=== PATIENT | male | born 1950 | race Caucasian/White ===

== ENCOUNTER 2017-10-05 12:46 | Inpatient (IN) | payer OTHER ==
[~2017-10-05 12:46] MED LIST: PIPERACILLIN/TAZOB 2.25 GM 2.25 GM in DEXTROSE 5%-WATER - 50 ML IVPB SCH
[2017-10-05] MEDS ORDERED: SODIUM CHLORIDE 1,000 ML IV STA ×2 (13:29→16:02)
--- NOTE | 2017-10-05 13:54 | PDOC ---
History of Present Illness - General History Source: Patient, Friend Exam Limitations: No Limitations <CelineXochitl - Last Filed: 10/05/17 14:15> <Yesenia Choe - Last Filed: 10/05/17 18:38> - General History Source: Patient, Friend (Lizy) Exam Limitations: No Limitations - History of Present Illness Initial Comments: 10/05/17 13:48 Patient is a 66 year old male with PMH of DM, HTN, chronic back pain presenting to ED because "I was forced to". He was brought in by his friend, Lizy, because she said he didn't look right and was refusing to be seen. Patient said he has been feeling week and vomiting for about 3 weeks. He states that he has not had an appetite either. He denies fever, chills, abdominal pain, LOC, cough , dysuria, bloody bowel movements. Patient does not have sensation in his feet. PCP: Dr. Paz/ Dr. Parker Civil Engineering Project Designer: Dr. Martinez Meds: Tamsulosin 0.4, Valsartan 160mg, Amlodipine 5mg, glipizide er 5mg, prilosec 40mg, gabapentin 100mg, oxycontin 40mg Allergies: nka Social: denies alcohol, tobacco, illicit drug use <Sanaz Guadalupe - Last Filed: 10/05/17 19:49> - General Stated Complaint: BLOOD SUGAR PROBLEM, WEAKNESS Time Seen by Provider: 10/05/17 13:05 Past History <Xochitl Berger - Last Filed: 10/05/17 14:15> <Yesenia Choe - Last Filed: 10/05/17 18:38> - Past Medical History Anemia: Yes COPD: No Diabetes: Yes - Suicide/Smoking/Psychosocial Hx Smoking Status: Yes Smoking History: Former smoker Have you smoked in the past 12 months: No Number of Cigarettes Smoked Daily: 0 Information on smoking cessation initiated: No 'Breaking Loose' booklet given: 11/02/12 Hx Alcohol Use: No Drug/Substance Use Hx: No Substance Use Type: None <Sanaz Guadalupe - Last Filed: 10/05/17 19:49> - Past Medical History Allergies/Adverse Reactions: Allergies Allergy/AdvReac Type Severity Reaction Status Date / Time No Known Allergies Allergy Verified 10/05/17 13:46 Home Medications: Ambulatory Orders Amlodipine Besylate 5 mg PO DAILY 10/05/17 Amlodipine Besylate 5 mg PO DAILY 10/05/17 Gabapentin 300 mg PO BID 10/05/17 Glipizide [Glipizide ER] 5 mg PO DAILY 10/05/17 Omeprazole Magnesium [Prilosec] 40 mg PO DAILY 10/05/17 Tamsulosin HCl 0.4 mg PO HS 10/05/17 Valsartan 160 mg PO DAILY 10/05/17 oxyCODONE SR [Oxycontin] 20 mg PO BID 10/05/17 Review of Systems - Review of Systems Constitutional: Yes: Loss of Appetite, Weakness. No: Chills, Fever, Night Sweats HEENTM: No: Eye Pain, Recent change in vision, Throat Pain, Throat Swelling, Difficulty Swallowing Respiratory: No: Cough, Shortness of Breath, Wheezing Cardiac (ROS): Yes: Lightheadedness. No: Chest Pain, Palpitations ABD/GI: Yes: Nausea, Poor Appetite, Vomiting. No: Constipated, Diarrhea, Difficulty Swallowing, Indigestion, Abdominal cramping : No: Burning, Dysuria, Frequency, Hematuria, Testicular Mass, Testicular Swelling, Testicular Pain Musculoskeletal: Yes: Back Pain Integumentary: No: Change in Color, Flushing, Lesions, Rash Neurological: Yes: Weakness, Dizziness. No: Headache, Numbness, Paresthesia, Seizure, Tingling <Sanaz Guadalupe - Last Filed: 10/05/17 19:49> *Physical Exam - Vital Signs Last Vital Signs Temp Pulse Resp BP Pulse Ox 100.1 F H 124 H 16 122/57 100 10/05/17 13:23 10/05/17 13:23 10/05/17 13:23 10/05/17 13:23 10/05/17 13:23 <Xochitl Berger - Last Filed: 10/05/17 14:15> - Vital Signs Last Vital Signs Temp Pulse Resp BP Pulse Ox 100.1 F H 125 H 20 124/69 100 10/05/17 13:29 10/05/17 14:49 10/05/17 14:49 10/05/17 14:49 10/05/17 16:31 <Yesenia Choe - Last Filed: 10/05/17 18:38> - Vital Signs Last Vital Signs Temp Pulse Resp BP Pulse Ox 99.8 F H 128 H 21 85/53 97 10/05/17 12:46 10/05/17 12:46 10/05/17 12:46 10/05/17 12:46 10/05/17 12:46 - Physical Exam General Appearance: Yes: Thin, Other (lying in bed, shivering) HEENT: positive: EOMI, ANNIE. negative: Pharyngeal Erythema, Tonsillar Exudate, Tonsillar Erythema (dry mucous membranes) Neck: positive: Trachea midline, Supple. negative: Carotid bruit Respiratory/Chest: positive: Decreased Breath Sounds (of R and L lower lung bases). negative: Rales, Stridor, Wheezing Cardiovascular: positive: Regular Rhythm, S1, S2, Tachycardia. negative: Edema , JVD, Murmur Gastrointestinal/Abdominal: positive: Normal Bowel Sounds, Soft. negative: Tender, Distended, Guarding, Rebound, Tenderness Male Genitalia: positive: normal genitalia. negative: testicular tenderness, testicular mass Musculoskeletal: negative: CVA Tenderness, Decreased Range of Motion Extremity: positive: Delayed Capillary Refill. negative: Normal Range of Motion , Tender, Pedal Edema, Swelling, Calf Tenderness Integumentary: positive: Other (Plantar surfaces of both feet are erythematous with ulceration. L plantar surface has a penetrating wound about 1-2cm deep) Neurologic: positive: supervisor area II-XII NML intact, Fully Oriented, Alert, Normal Response, Other (No sensation in feet bilaterally) <Sanaz Guadalupe - Last Filed: 10/05/17 19:49> Procedures - Bedside Ultrasound Other: Kidney Remarks: 10/05/17 17:06 Bedside ultrasound of kidney performed with Dr. Berger: R and L kidney appear grossly normal, no hydronephrosis noted. Incidental cholelithiasis found. patient is asymptomatic <Sanaz Guadalupe - Last Filed: 10/05/17 19:49> ED Treatment Course - LABORATORY CBC & Chemistry Diagram: 10/05/17 13:57 10/05/17 13:57 - ADDITIONAL ORDERS Additional order review: Laboratory Results 10/05/17 13:57 VBG pH 7.39 POC VBG pCO2 42.6 POC VBG pO2 22.1 L Mixed VBG HCO3 25.2 H - RADIOLOGY Radiology Studies Ordered: Category Date Time Status CHEST X-RAY PORTABLE* [RAD] Stat Radiology 10/05/17 13:25 Ordered <Xochitl Berger - Last Filed: 10/05/17 14:15> - LABORATORY CBC & Chemistry Diagram: 10/05/17 13:57 10/05/17 13:57 - ADDITIONAL ORDERS Additional order review: Laboratory Results 10/05/17 10/05/17 10/05/17 16:45 14:09 13:57 PT with INR INR PTT (Actin FS) VBG pH POC VBG pCO2 POC VBG pO2 Mixed VBG HCO3 Sodium Potassium Chloride Carbon Dioxide Anion Gap BUN Creatinine Creat Clearance w eGFR Random Glucose Lactic Acid 2.0 Calcium Total Bilirubin AST ALT Alkaline Phosphatase Creatine Kinase Creatine Kinase Index CK-MB (CK-2) Troponin I Total Protein Albumin Urine Color Yellow Urine Appearance Slcloudy Urine pH 5.0 Ur Specific [place] 1.014 Urine Protein 1+ H Urine Glucose (UA) 1+ H Urine Ketones Negative Urine Blood 1+ H Urine Nitrite Negative Urine Bilirubin Negative Urine Urobilinogen Negative Ur Leukocyte Esterase Negative Urine WBC (Auto) 2 Urine RBC (Auto) 2 Ur Epithelial Cells Rare Urine Mucus Rare Blood Type A POSITIVE Antibody Screen Negative 10/05/17 10/05/17 10/05/17 13:57 13:57 13:57 PT with INR 14.20 H INR 1.26 H PTT (Actin FS) 29.0 VBG pH 7.39 POC VBG pCO2 42.6 POC VBG pO2 22.1 L Mixed VBG HCO3 25.2 H Sodium 135 L Potassium 5.3 H Chloride 98 Carbon Dioxide 26 Anion Gap 11 BUN 66 H Creatinine 5.8 H Creat Clearance w eGFR 9.83 Random Glucose 181 H D Lactic Acid Calcium 8.7 Total Bilirubin 0.3 AST 24 D ALT 17 D Alkaline Phosphatase 82 Creatine Kinase 250 Creatine Kinase Index 0.9 CK-MB (CK-2) 2.44 Troponin I < 0.02 Total Protein 7.1 Albumin 2.2 L Urine Color Urine Appearance Urine pH Ur Specific [place] Urine Protein Urine Glucose (UA) Urine Ketones Urine Blood Urine Nitrite Urine Bilirubin Urine Urobilinogen Ur Leukocyte Esterase Urine WBC (Auto) Urine RBC (Auto) Ur Epithelial Cells Urine Mucus Blood Type Antibody Screen 10/05/17 13:57 RBC 3.48 L MCV 81.6 MCHC 33.0 RDW 14.3 MPV 7.6 Neutrophils % 84.7 H Lymphocytes % 7.9 L D Monocytes % 6.2 Eosinophils % 0.5 Basophils % 0.7 - Medications Given in the ED: ED Medications Discontinued Medications Generic Name Dose Route Start Last Admin Trade Name King PRN Reason Stop Dose Admin Acetaminophen 1,000 mg 10/05/17 14:25 10/05/17 14:40 Ofirmev Injection - IVPB 10/05/17 14:26 1,000 mg ONCE ONE Administration Sodium Chloride 1,000 mls @ 1,000 mls/hr 10/05/17 13:29 10/05/17 13:30 Normal Saline - IV 10/05/17 14:28 1,000 mls/hr ASDIR STA Administration Vancomycin HCl 1,000 mg/ 250 mls @ 166.667 mls/hr 10/05/17 14:23 10/05/17 15: 36 Dextrose IVPB 10/05/17 15:52 166.667 mls/hr ONCE ONE Administration Protocol Piperacillin Sod/Tazobactam 50 mls @ 100 mls/hr 10/05/17 14:23 10/05/17 14:47 Sod 3.375 gm/ Dextrose IVPB 10/05/17 14:52 100 mls/hr ONCE ONE Administration Protocol Famotidine/Sodium Chloride 20 mg in 50 mls @ 100 mls/hr 10/05/17 14:41 15:36 Pepcid 20 Mg Premixed Ivpb - IVPB 10/05/17 15:10 100 mls/hr ONCE ONE Administration Sodium Chloride 1,000 mls @ 1,000 mls/hr 10/05/17 16:02 10/05/17 16:55 Normal Saline - IV 10/05/17 17:01 1,000 mls/hr ASDIR STA Administration - Consult/PCP Time Called: 17:28 (Paged Infectious Disease) Consult Reason/Comments: Paged Dr. Peguero - Podiatry. Repaged Podiatry. - Additional Consults Time Called: 17:09 (Paged Nephrology) Consult/PCP: Marvin Martinez Time Called: 17:23 (Paged Podiatry) Consult/PCP: Dr. Reynoso Reason/Comments: Placed a callback to Dr. 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 <Yesenia Choe - Last Filed: 10/05/17 18:38> - LABORATORY CBC & Chemistry Diagram: 10/05/17 13:57 10/05/17 13:57 - RADIOLOGY Radiology Studies Ordered: Category Date Time Status FOOT-LEFT [RAD] Stat Radiology 10/05/17 13:38 Ordered FOOT-RIGHT [RAD] Stat Radiology 10/05/17 13:38 Ordered <Sanaz Guadalupe - Last Filed: 10/05/17 19:49> Medical Decision Making - Medical Decision Making 10/05/17 13:58 Patient is a 66yo male with PMH of DM, HTN, chronic back pain presenting to ED because his friend was concerned. Vitals in triage showed that patient was hypotensive 85/53 and tachycardic 128, oral temperature was 99.7. DDX: sepsis, septic shock, DKA, hypoglycemia, anemia -source of possible infection includes open wound on foot, osteomyelitis, uti, pna. UA, UC, blood cultures ordered. Swab of pt's Left foot wound on the heel. After bolus, patient's bp went up to 127/67 HR 120. Rectal temperature 100.7 Patient started on Vanc/Zosyn and given IV Tylenol Labs: WBC 13.1, Hgb 9.7. BUN 66, Cr 5.8, PT/INR 14.2, 1.26. Lactate was 2, recheck was 1. UA negative for infection. Bedside ultrasound of kidney performed: no hydronephrosis noted. Patient had davenport placed because of kidney function. Patient was less confused after bolus, abx. CXR: no acute process. Xray of R foot: no acute injury or osteo Xray of Left foot: no acute osseous injury, soft tissue gas noted suggestive of deep fascitis. Patient's hr decreased to 95 and was normotensive. Possible source of infection found. Patient was admitted under Dr. Trujillo. Podiatry not available for consult. Consults: Dr. Kat for ID Dr. Bray for nephrology Awaiting callback from vascular surgery for consult. Patient was signed out to Dr. Mendoza <Sanaz Guadalupe - Last Filed: 10/05/17 19:49> *DC/Admit/Observation/Transfer <Xochitl Berger - Last Filed: 10/05/17 14:15> <Yesenia Choe - Last Filed: 10/05/17 18:38> - Discharge Dispostion Decision to Admit order: Yes <Sanaz Guadalupe - Last Filed: 10/05/17 19:49> Diagnosis at time of Disposition: Sepsis
[2017-10-05 14:08] LABS: BASO % 0.7 % (0-2.0); EOS % 0.5 % (0-4.5); HEMATOCRIT 28.4 % (35.4-49); HEMOGLOBIN 9.4 GM/dL (11.7-16.9); LYMPH % 7.9 % (8-40); MCH 26.9 pg (25.7-33.7); MEAN CELL VOLUME 81.6 fl (80-96); MEAN PLT VOLUME 7.6 fl (7.5-11.1); MONO % 6.2 % (3.8-10.2); NEUT % 84.7 % (42.8-82.8); PLATELET COUNT 491 K/MM3 (134-434); RBC 3.48 M/mm3 (4.00-5.60); RDW 14.3 % (11.9-15.9); WHITE BLOOD COUNT 13.1 K/mm3 (4.0-10.0)
[2017-10-05 14:14] LABS: VENOUS PC02 42.6 mmHg (38-52); VENOUS PH 7.39 (7.32-7.42); VENOUS PO2 22.1 mmHg (28-48)
--- NOTE | 2017-10-05 14:21 | PDOC ---
Attending Attestation - Medical Decision Making 10/05/17 14:[address] Paz, answering service referred to [facility]. Case discussed with Dr. Rosales at 16:00. <Altaf Clement - Last Filed: 10/05/17 16:01> - Resident Resident Name: Sanaz Guadalupe - ED Attending Attestation I have performed the following: I have examined & evaluated the patient, The case was reviewed & discussed with the resident, I agree w/resident's findings & plan, Exceptions are as noted - HPI HPI: 10/05/17 14:15 66-year-old male history of diabetes and hypertension here today with a friend who forced him to come for concerns for persistent nausea vomiting decreased by mouth intake and lethargy. Per the friend who provides most the history of patient hasn't been vomiting intermittently over the last 3 weeks has not eaten or drank anything no fevers or chills per the patient complains of abdominal pain but states he has no appetite. Patient has been admitted in the past for something very similar at that time was found to be severely anemic. Denies any urinary difficulty no fevers no chills denies cough chest pain or other complaints - Physicial Exam PE: 10/05/17 14:19 Patient is awake alert noted to have very dry mucous membranes lung is Tyesha a faint crackles at the right base and decreased breath sounds otherwise normal normal effort. Heart is with regular tachycardia no murmurs rubs or gallops abdomen is soft and nontender there is no CVA tenderness. Extremities are warm and well perfused without rash. The heels left heel is noted for a large decubitus ulcer with tracking no surrounding erythema mild malodor patient has 2 + DP and PT pulses neurologically he is awake alert and oriented has a resting tremor good strength throughout speech is clear - Medical Decision Making 10/05/17 14:20 66-year-old male diabetes hypertension here with lethargy noted to be hypotensive and tachycardic. Differential diagnosis includes sepsis sources include possible pneumonia, UTI, or infected heel ulcer and osteomyelitis, renal failure, anemia, severe dehydration, x-rays of the chest, heels cBC lytes, ua type and screen Will give IV hydration rectal temp positive 100.3 .we'll give IV Tylenol will give broad-spectrum patient will require admission 10/05/17 14:21 10/05/17 16:02 d/w dr. Rosales, nephrology who will see pt. recommend repeat bmp in 8 hrs. 10/05/17 17:04 pt now states pt sees dr. Hinds for nephrology, will pg . focused ED ultrasound renal performed indication renal failure no hydronephrosis bilaterally. bladder nondistended. impression: normal renal ultrasound incidental glablladder visualization, multilple gallstones. no wall thickening. no pericholecystic fluid. wall normal < 4 mm. impression: cholelithiasis. <Xochitl Berger - Last Filed: 10/05/17 17:06> Attestations - Attestations Documentation prepared by Altaf Clement, acting as medical radiation dosimetrist for Xochitl Berger MD. <Altaf Clement - Last Filed: 10/05/17 16:01>
[2017-10-05] MEDS ORDERED: VANCOMYCIN 1,000 MG in DEXTROSE 5%-WATER - 250 ML IVPB ONE (14:23)
[2017-10-05] MEDS ORDERED: PIPERACILLIN/TAZOB 3.375 GM 3.375 GM in DEXTROSE 5%-WATER - 50 ML IVPB ONE (14:23)
[2017-10-05] MEDS ORDERED: ACETAMINOPHEN 1000 MG/100 ML VIAL (NON FORMULARY) IVPB ONE (14:25)
[2017-10-05] MEDS ORDERED: ACETAMINOPHEN INJECTION 100 ML IVPB ONE (14:30)
[2017-10-05] MEDS ORDERED: VANCOMYCIN 1 GRAM (PRE-DOCKED) 1,000 MG/250 ML BAG IVPB ONE (14:31)
[2017-10-05] MEDS ORDERED: PIPERACILLIN/TAZOB 3.375 GM 3.375 GM/50 ML BAG IVPB ONE (14:31)
[2017-10-05 14:32] LABS: ALBUMIN 2.2 g/dl (3.4-5.0); ANION GAP 11 (8-16); BILIRUBIN,TOTAL 0.3 mg/dL (0.2-1.0); BLOOD UREA NITROGEN 66 mg/dL (7-18); CALCIUM 8.7 mg/dL (8.5-10.1); CHLORIDE 98 mmol/L (98-107); CO2 26 mmol/L (21-32); CREATININE 5.8 mg/dL (0.7-1.3); GLUCOSE,RANDOM 181 mg/dL (74-106); POTASSIUM 5.3 mmol/L (3.5-5.1); SGOT/AST 24 U/L (15-37); SGPT/ALT 17 U/L (12-78); SODIUM 135 mmol/L (136-145); TOT PROT 7.1 g/dl (6.4-8.2)
[2017-10-05 14:37] LABS: ALK PHOS 82 U/L (45-117)
[2017-10-05] MEDS ORDERED: FAMOTIDINE 20 MG/50 ML IVPB 20 MG/50 ML MG IVPB ONE ×2 (14:41→15:03)
[2017-10-05 14:45] LABS: INR 1.26 (0.82-1.09); PROTHROMBIN TIME (PATIENT) 14.2 SEC (9.7-13.0)
[2017-10-05 16:54] LABS: URINE APPEARANCE SLCLOUDY; URINE BILIRUBIN NEGATIVE (<2.0 mg/dL); URINE COLOR YELLOW; URINE GLUCOSE (UA) 1+ (NEGATIVE); URINE KETONE NEGATIVE (NEGATIVE); URINE LEUK ESTERASE NEGATIVE (NEGATIVE); URINE NITRITE NEGATIVE (NEGATIVE); URINE UROBILINOGEN NEGATIVE mg/dL (0.2-1.0)
[2017-10-05 16:57] LABS: URINE PROTEIN 1+ (NEGATIVE)
[2017-10-05 16:58] LABS: EPI CELLS RARE /HPF (FEW); URINE MUCUS RARE
--- NOTE | 2017-10-05 17:42 | HP ---
CHIEF COMPLAINT: PCP: Dr. Paz HISTORY OF PRESENT ILLNESS: This is a 66 year old male with PMHx of DM, HTN, chronic back pain, who presented to the ED with 4 weeks of vomiting, dizziness, and multiple falls. The patient reports that for the past 4 weeks he has had the above noted symptoms and decreased appetite. He reports multiple falls due to diabetic neuropathy. He states that the other day he was walking outside barefoot and after coming inside he noticed skin sloughing off the bottoms of his feet. He reports he walks barefoot "almost all the time". He denies any chest pain, syncope, palpitations, headache, lower extremity swelling, urinary symptoms, cough, headache. The patient reports he looks at his feet periodically and that he last looked at them a "few weeks ago" and that they were clean. ER course was notable for: (1) Temp 100.1 (rectal temp noted from resident to be 100.7), pulse 128, BP 85/ 53, resp 21, O2 97% on RA (2) WBC 13.1, Hgb 9.4 (3) K 5.3, Cr 5.8 Recent Travel: denies PAST MEDICAL HISTORY: as above PAST SURGICAL HISTORY: 10/24/16 back surgery Social History: Smoking: quit 13 years ago Alcohol: denies Drugs: denies Family History: Allergies No Known Allergies Allergy (Verified 10/05/17 13:46) HOME MEDICATIONS: Home Medications Medication Instructions Recorded Zolpidem Tartrate [Ambien] 10 mg PO HS PRN 11/02/12 metFORMIN HCL [Glucophage] 500 mg PO BID 11/02/12 Ferrous Sulfate 325 mg PO DAILY #1 tablet 11/06/12 Pantoprazole Sodium [Protonix] 40 mg PO DAILY #1 tablet. 11/06/12 Vit C/Ascorbate Calcium,Sodium 500 mg PO DAILY #0 ml 11/06/12 [Vitamin C 500 mg/15 ml Liquid] Vicodin Hp 10-300mg Tablet 1 tab PRN 11/27/12 REVIEW OF SYSTEMS CONSTITUTIONAL: Absent: fever, chills, diaphoresis, generalized weakness, malaise, loss of appetite, weight change HEENT: Absent: rhinorrhea, nasal congestion, throat pain, throat swelling, difficulty swallowing, mouth swelling, ear pain, eye pain, visual changes CARDIOVASCULAR: Absent: chest pain, syncope, palpitations, irregular heart rate, lightheadedness , peripheral edema RESPIRATORY: Absent: cough, shortness of breath, dyspnea with exertion, orthopnea, wheezing, stridor, hemoptysis GASTROINTESTINAL: nausea, vomiting, decreased appetite x4 weeks. Absent: abdominal distension, diarrhea, constipation, melena, hematochezia GENITOURINARY: Absent: dysuria, frequency, urgency, hesitancy, hematuria, flank pain, genital pain MUSCULOSKELETAL: Absent: myalgia, arthralgia, joint swelling, back pain, neck pain SKIN: b/l foot skin slothing Absent: rash, itching, pallor HEMATOLOGIC/IMMUNOLOGIC: Absent: easy bleeding, easy bruising, lymphadenopathy, frequent infections ENDOCRINE: Absent: unexplained weight gain, unexplained weight loss, heat intolerance, cold intolerance NEUROLOGIC: B/l foot neuropathy Absent: headache, focal weakness dizziness, seizure, mental status changes, bladder or bowel incontinence PSYCHIATRIC: Absent: anxiety, depression, suicidal or homicidal ideation, hallucinations. PHYSICAL EXAMINATION Vital Signs - 24 hr 10/05/17 10/05/17 10/05/17 12:46 13:23 13:29 Temperature 99.8 F H 100.1 F H 100.1 F H Pulse Rate 128 H 124 H Pulse Rate [ 119 H Apical] Respiratory 21 16 16 Rate Blood Pressure 85/53 122/57 Blood Pressure 127/67 [Right Arm] O2 Sat by Pulse 97 100 100 Oximetry (%) 10/05/17 10/05/17 10/05/17 13:43 14:49 16:31 Temperature Pulse Rate Pulse Rate [ 125 H Apical] Respiratory 20 Rate Blood Pressure Blood Pressure 124/69 [Right Arm] O2 Sat by Pulse 100 100 100 Oximetry (%) GENERAL: Awake, alert, and fully oriented, in no acute distress. HEAD: Normal with no signs of trauma. EYES: Pupils equal, round and reactive to light, extraocular movements intact, sclera anicteric, conjunctiva clear. No lid lag. EARS, NOSE, THROAT: Ears normal, nares patent, oropharynx clear without exudates. Moist mucous membranes. NECK: Normal range of motion, supple without lymphadenopathy, JVD, or masses. LUNGS: Breath sounds equal, clear to auscultation bilaterally. No wheezes, and no crackles. No accessory muscle use. HEART: Regular rate and rhythm, normal S1 and S2 ABDOMEN: Soft, nontender, not distended, normoactive bowel sounds, no guarding, no rebound, no masses. No hepatomegaly or splenomegaly. MUSCULOSKELETAL: Normal range of motion at all joints. No bony deformities or tenderness. No CVA tenderness. UPPER EXTREMITIES: 2+ pulses, warm, well-perfused. No cyanosis. No clubbing. No peripheral edema. LOWER EXTREMITIES: B/l foot plantar surface with eschar, erythema, and multiple wounds, skin sloughing. No drainage noted from b/l feet. 2+ pulses, warm. No calf tenderness. No peripheral edema. NEUROLOGICAL: Cranial nerves II-XII intact. Normal speech. PSYCHIATRIC: Cooperative. Good eye contact. Appropriate mood and affect. SKIN: Warm, dry, normal turgor, no rashes or lesions noted, normal capillary refill. Laboratory Results - last 24 hr 10/05/17 10/05/17 10/05/17 13:57 13:57 13:57 WBC 13.1 H RBC 3.48 L Hgb 9.4 L Hct 28.4 L MCV 81.6 MCH 26.9 MCHC 33.0 RDW 14.3 Plt Count 491 H MPV 7.6 Absolute Neuts (auto) 11.1 Neutrophils % 84.7 H Lymphocytes % 7.9 L D Monocytes % 6.2 Eosinophils % 0.5 Basophils % 0.7 Nucleated RBC % 0 PT with INR INR PTT (Actin FS) VBG pH 7.39 POC VBG pCO2 42.6 POC VBG pO2 22.1 L Mixed VBG HCO3 25.2 H Sodium 135 L Potassium 5.3 H Chloride 98 Carbon Dioxide 26 Anion Gap 11 BUN 66 H Creatinine 5.8 H Creat Clearance w eGFR 9.83 Random Glucose 181 H D Lactic Acid Calcium 8.7 Total Bilirubin 0.3 AST 24 D ALT 17 D Alkaline Phosphatase 82 Creatine Kinase 250 Creatine Kinase Index 0.9 CK-MB (CK-2) 2.44 Troponin I < 0.02 Total Protein 7.1 Albumin 2.2 L Urine Color Urine Appearance Urine pH Ur Specific [place] Urine Protein Urine Glucose (UA) Urine Ketones Urine Blood Urine Nitrite Urine Bilirubin Urine Urobilinogen Ur Leukocyte Esterase Urine WBC (Auto) Urine RBC (Auto) Ur Epithelial Cells Urine Mucus Blood Type Antibody Screen 10/05/17 10/05/17 10/05/17 13:57 13:57 14:09 WBC RBC Hgb Hct MCV MCH MCHC RDW Plt Count MPV Absolute Neuts (auto) Neutrophils % Lymphocytes % Monocytes % Eosinophils % Basophils % Nucleated RBC % PT with INR 14.20 H INR 1.26 H PTT (Actin FS) 29.0 VBG pH POC VBG pCO2 POC VBG pO2 Mixed VBG HCO3 Sodium Potassium Chloride Carbon Dioxide Anion Gap BUN Creatinine Creat Clearance w eGFR Random Glucose Lactic Acid 2.0 Calcium Total Bilirubin AST ALT Alkaline Phosphatase Creatine Kinase Creatine Kinase Index CK-MB (CK-2) Troponin I Total Protein Albumin Urine Color Urine Appearance Urine pH Ur Specific [place] Urine Protein Urine Glucose (UA) Urine Ketones Urine Blood Urine Nitrite Urine Bilirubin Urine Urobilinogen Ur Leukocyte Esterase Urine WBC (Auto) Urine RBC (Auto) Ur Epithelial Cells Urine Mucus Blood Type A POSITIVE Antibody Screen Negative 10/05/17 16:45 WBC RBC Hgb Hct MCV MCH MCHC RDW Plt Count MPV Absolute Neuts (auto) Neutrophils % Lymphocytes % Monocytes % Eosinophils % Basophils % Nucleated RBC % PT with INR INR PTT (Actin FS) VBG pH POC VBG pCO2 POC VBG pO2 Mixed VBG HCO3 Sodium Potassium Chloride Carbon Dioxide Anion Gap BUN Creatinine Creat Clearance w eGFR Random Glucose Lactic Acid Calcium Total Bilirubin AST ALT Alkaline Phosphatase Creatine Kinase Creatine Kinase Index CK-MB (CK-2) Troponin I Total Protein Albumin Urine Color Yellow Urine Appearance Slcloudy Urine pH 5.0 Ur Specific [place] 1.014 Urine Protein 1+ H Urine Glucose (UA) 1+ H Urine Ketones Negative Urine Blood 1+ H Urine Nitrite Negative Urine Bilirubin Negative Urine Urobilinogen Negative Ur Leukocyte Esterase Negative Urine WBC (Auto) 2 Urine RBC (Auto) 2 Ur Epithelial Cells Rare Urine Mucus Rare Blood Type Antibody Screen Assessment: This is a 66 year old male with PMHx of DM, HTN, chronic back pain, who presented to the ED with 4 weeks of vomiting, dizziness, and multiple falls. Plan: 1) Sepsis 2/2 possible left foot osteo - Left foot x-ray with soft tissue gas noted suggestive of deep fasciitis in the heel - F/u ESR, CRP - F/u left foot MRI - Received vanco and zosyn in the ED - Continue Zosyn - Dose Vanco based on level given kidney function - Per resident in ED, podiatry called to come in for consult regarding above x- ray results - F/u ID consult 2) UMER on CKD - Patient reports kidneys are functioning at 28%? - Cr now 5.8, unknown baseline - Continue IV fluids, patient appears dehydrated - Awaiting call back from nephrology regarding outpatient workup and previous Cr. If worse than baseline, consider ultrasound kidneys and urine electrolytes - Patient reports making urine 3) DM - F/u HgbA1c - BGM ACHS - ISS ACHS 4) HTN - Hypotensive in the ED - Hold ARB given kidney function - Continue to monitor 5) F/E/N: - Diabetic diet - Monitor electrolytes - Hyperkalemia: continue to trend, management per nephrology Visit type - Emergency Visit Emergency Visit: Yes ED Registration Date: 10/05/17 Care time: The patient presented to the Emergency Department on the above date and was hospitalized for further evaluation of their emergent condition. - New Patient This patient is new to me today: Yes Date on this admission: 10/08/17 - Critical Care Critical Care patient: No Hospitalist Screening - Colonoscopy Questionnaire Colonoscopy Questionnaire: Colonoscopy Questionnaire - Patient: 50 - 75 years old and never had a screening colonoscopy: Unknown History of colon or rectal polyps, or CA: Unknown History of IBD, Crohn's disease or UC: Unknown History of abdominal radiation therapy as a child: Unknown - Relative: 1 with colon or rectal CA, or polyps at age 60 or younger: Unknown Colon or rectal CA diagnosed at age 45 or younger: Unknown Multiple relatives with colon or rectal CA: Unknown - Outcome: Screening Result: Negative Screen
[2017-10-05] MEDS ORDERED: CLINDAMYCIN 600MG PREMIX IVPB 600 MG/50 ML BAG IVPB ONE ×2 (19:03→19:19)
[2017-10-05] MEDS ORDERED: PIPERACILLIN/TAZOBACTAM 2.25 GM VIAL IVPB ONE (22:38)
[2017-10-05] MEDS ORDERED: DEXTROSE 5%-WATER - 50 ML IVPB ONE (22:38)
[2017-10-05] MEDS: PIPERACILLIN/TAZOB 2.25 GM 2.25 GM in DEXTROSE 5%-WATER - 50 ML IVPB SCH (23:00)
[2017-10-05] MEDS: INSULIN SLIDING SCALE (NOVOLOG) 1 VIAL SQ SCH (23:13)
[2017-10-06] MEDS ORDERED: PIPERACILLIN/TAZOB 2.25 GM 2.25 GM in DEXTROSE 5%-WATER - 50 ML IVPB SCH (02:00)
[2017-10-06] MEDS: CLINDAMYCIN 600MG PREMIX IVPB 600 MG/50 ML BAG IVPB SCH ×3 (03:51→17:31)
[2017-10-06] MEDS: INSULIN SLIDING SCALE (NOVOLOG) 1 VIAL SQ SCH ×4 (06:03→22:44)
[2017-10-06] MEDS: PIPERACILLIN/TAZOB 2.25 GM 2.25 GM in DEXTROSE 5%-WATER - 50 ML IVPB SCH ×3 (06:30→22:44)
[2017-10-06 08:49] LABS: BASO % 0.9 % (0-2.0); EOS % 2.1 % (0-4.5); HEMATOCRIT 24.5 % (35.4-49); LYMPH % 21.2 % (8-40); MCH 26.8 pg (25.7-33.7); MCHC 32.5 g/dl (32.0-35.9); MEAN CELL VOLUME 82.4 fl (80-96); MEAN PLT VOLUME 7.6 fl (7.5-11.1); MONO % 7.3 % (3.8-10.2); NEUT % 68.5 % (42.8-82.8); PLATELET COUNT 384 K/MM3 (134-434); RBC 2.98 M/mm3 (4.00-5.60); RDW 14.6 % (11.9-15.9); WHITE BLOOD COUNT 8.3 K/mm3 (4.0-10.0)
[2017-10-06] MEDS: FERROUS SO4 325 MG TABLET (FP) PO SCH (09:40)
--- NOTE | 2017-10-06 09:58 | CONSULT ---
Consult - text type - Consultation Consultation Note: Renal Consult for UMER/CKD This is a 66 year old gentleman with PMhx of CKD Stage 4, Hyperkalemia , DM with retinopathy and peripheral neuropathy, Hypertension, Anemia requiring transfusions in the past who presented from home with history of N/V, dizziness and falls and admitted for Sepsis with possible osteomylitis with Cr of 5.8. Pt reports injuring his feet 3 weeks ago when he walked outside w/o shoes or socks. + skin loss and discharge from both feet. N/V at home. Oral intake has been poor. Making urine, no hematuria or dark urine. No flank pain, no NSAID use. Denies any sob, chest pain, abd pain, no N/V in hospital. PMhx: as above Allergies: NKDA Family hx: NC Social Hx: No T/A/D ROS: as per HPI, all other pertinent ros negative Home Medications Medication Instructions Recorded Amlodipine Besylate 5 mg PO DAILY 10/05/17 Amlodipine Besylate 5 mg PO DAILY 10/05/17 Gabapentin 300 mg PO BID 10/05/17 Glipizide [Glipizide ER] 5 mg PO DAILY 10/05/17 Omeprazole Magnesium [Prilosec] 40 mg PO DAILY 10/05/17 Tamsulosin HCl 0.4 mg PO HS 10/05/17 Valsartan 160 mg PO DAILY 10/05/17 oxyCODONE SR [Oxycontin] 20 mg PO BID 10/05/17 Vital Signs Temperature 97.9 F 10/06/17 05:42 Pulse Rate 78 10/06/17 05:42 Respiratory Rate 20 10/06/17 05:42 Blood Pressure 102/58 10/06/17 05:42 O2 Sat by Pulse Oximetry (%) 97 10/05/17 22:00 Intake & Output 10/03/17 10/04/17 10/05/17 10/06/17 23:59 23:59 23:59 23:59 Intake Total 2800 300 Output Total 600 Balance 2200 300 Weight 83.915 kg 73.573 kg NAD, awake and alert Oriented x 3 Neck supple, No JVD, Dry MM RRR, No M/R/G CTA, no rales or wheeze soft NT/ND, No rebound/guarding, hepatomegaly no bladder distension, [place] in place No LE edema, both feet in dressings, + discharge noted from both plantar aspects of feet No cyanosis, feet are warm CBC, BMP 10/06/17 06:50 Laboratory Tests 10/05/17 10/05/17 10/05/17 13:57 16:45 17:05 Potassium 5.3 H BUN 66 H Creatinine 5.8 H Creat Clearance w eGFR 9.83 Lactic Acid 1.0 C-Reactive Protein Albumin 2.2 L Urine Protein 1+ H Urine Blood 1+ H Urine WBC (Auto) 2 Urine RBC (Auto) 2 10/05/17 18:30 Potassium BUN Creatinine Creat Clearance w eGFR Lactic Acid C-Reactive Protein 12.9 H Albumin Urine Protein Urine Blood Urine WBC (Auto) Urine RBC (Auto) Microbiology 10/05/17 14:04 Foot - Left Heel Wound Culture - Preliminary Pending Organism Pending Organism#2 Staphylococcus Coagulase Neg Current Medications Ferrous Sulfate (Feosol -) 325 mg PO DAILY [facility] Last Admin: 10/06/17 09:40 Dose: 325 mg Piperacillin Sod/Tazobactam (Sod 2.25 gm/ Dextrose) 50 mls @ 100 mls/hr IVPB Q8H [facility] Last Admin: 10/06/17 06:30 Dose: 100 mls/hr Clindamycin Phosphate (Cleocin 600 Mg Premix Ivpb -) 600 mg in 50 mls @ 100 mls /hr IVPB Q8H-IV [facility]; Protocol Last Admin: 10/06/17 09:40 Dose: 100 mls/hr Insulin Aspart (Novolog Vial Sliding Scale -) 1 vial SQ ACHS [facility]; Protocol Last Admin: 10/06/17 06:03 Dose: Not Given 66 year old gentleman with PMhx of CKD, Hyperkalemia, DM with retinopathy and peripheral neuropathy, Hypertension, Anemia requiring transfusions in the past who presented from home with history of N/V, dizziness and falls and admitted for Sepsis with possible osteomylitis with Cr of 5.8. #UMER on CKD vs. Progressive CKD #Mild Hyperkalemia #Sepsis/Possible Osteomyliits/Fever/Leukocytosis #Chronic Anemia #Hx of Hypertension #DM Likely UMER secondary to intravascular volume depletion +/- renal hypoprofusion from ARB Check Urine studies for FeNa, UPCR will obtain baseline renal function from office records Continue isotonic saline at 83cc per hour Hold ARB given UMER and Hyperkalemia Trend renal function and electrolytes no acute indication for [employer] Low K diet Dose all meds for CrCl < 15 avoid nephrotoxins, IV contrast, NSAIDs Continue empiric Abx as per primary consider vascular eval of LE wound care Check iron studies, may need ALYSSA given CKD hold BP meds, trend BP check Hgb A1C, continue Insulin Thank you Marvin Rosales DO
[2017-10-06] MEDS ORDERED: TAMSULOSIN HCL 0.4 MG CAP.ER.24H (FP) PO SCH (10:15)
[2017-10-06] MEDS: SODIUM CHLORIDE 1,000 ML IV SCH (11:30)
[2017-10-06 11:57] LABS: ALBUMIN 1.8 g/dl (3.4-5.0); ALK PHOS 63 U/L (45-117); ANION GAP 10 (8-16); BILIRUBIN,TOTAL 0.2 mg/dL (0.2-1.0); BLOOD UREA NITROGEN 56 mg/dL (7-18); CALCIUM 8.2 mg/dL (8.5-10.1); CHLORIDE 105 mmol/L (98-107); CO2 21 mmol/L (21-32); CREATININE 4.7 mg/dL (0.7-1.3); GLUCOSE,RANDOM 109 mg/dL (74-106); POTASSIUM 4.5 mmol/L (3.5-5.1); SGOT/AST 17 U/L (15-37); SGPT/ALT 14 U/L (12-78); SODIUM 136 mmol/L (136-145)
--- NOTE | 2017-10-06 13:38 | PN ---
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 As per patient 4 wks ago he walked out of the house bare footed on black top during after noon when temperature was 97 F , as per patient his Girl patricia came to drop his check and he didn't realize that he is bare foot and walked out side to collect checks, he was standing and talking for 25 minutes , next day noticed his sole skin is peeling and legs are burning he keeps on doing dressing with silvedrine and cut skin with seizures developed discharging wounds poor PO intake nausea and vomiting came to Ed for evaluation. - Current Medication List Current Medications: Active Medications Amlodipine Besylate (Norvasc -) 5 mg PO DAILY [facility] Ferrous Sulfate (Feosol -) 325 mg PO DAILY [facility] Last Admin: 10/06/17 09:40 Dose: 325 mg Gabapentin (Neurontin -) 300 mg PO BID [facility] Piperacillin Sod/Tazobactam (Sod 2.25 gm/ Dextrose) 50 mls @ 100 mls/hr IVPB Q8H [facility] Last Admin: 10/06/17 06:30 Dose: 100 mls/hr Clindamycin Phosphate (Cleocin 600 Mg Premix Ivpb -) 600 mg in 50 mls @ 100 mls /hr IVPB Q8H-IV [facility]; Protocol Last Admin: 10/06/17 09:40 Dose: 100 mls/hr Sodium Chloride (Normal Saline -) 1,000 mls @ 83 mls/hr IV ASDIR [facility] Insulin Aspart (Novolog Vial Sliding Scale -) 1 vial SQ ACHS [facility]; Protocol Last Admin: 10/06/17 06:03 Dose: Not Given Non-Formulary Medication (Omeprazole Magnesium [Prilosec]) 40 mg PO DAILY [facility] Oxycodone HCl (Oxycontin -) 20 mg PO BID [facility] Tamsulosin HCl (Flomax -) 0.4 mg PO DAILY@0830 [facility] - Objective Vital Signs: Vital Signs Temperature 97.0 F L 10/06/17 10:00 Pulse Rate 86 10/06/17 10:00 Respiratory Rate 18 10/06/17 10:00 Blood Pressure 119/74 10/06/17 10:00 O2 Sat by Pulse Oximetry (%) 97 10/06/17 09:00 Constitutional: No Distress, Neck: Yes: Supple, Trachea Midline. No: Decreased ROM, no Lymphadenopathy Cardiovascular: Regular Rate and Rhythm, S1, S2 Respiratory: Yes: CTA Bilaterally Gastrointestinal: Yes: Normal Bowel Sounds, Soft LE: Extensive wounds on B/L foot Rt > Left with discharge and eschar formation, sensory loss good capillary circulation. Peripheral Pulses: Left Doralis Pedis: 1, Right Dorsalis Pedis: 1 Neurological: AOx3 non focal Labs: CBC, BMP 10/06/17 06:50 10/06/17 06:50 INR, PTT INR 1.26 (0.82-1.09) H 10/05/17 13:57 Problem List - Problems (1) Cellulitis and abscess of foot Assessment/Plan: B/L exudative skin changes on sole with discharge aand inflamation improving on current abx cont Zosyn and Clind as per ID F/U Cultures Code(s): L03.119 - CELLULITIS OF UNSPECIFIED PART OF LIMB; L02.619 - CUTANEOUS ABSCESS OF UNSPECIFIED FOOT (2) Acute on chronic kidney failure Assessment/Plan: Present with worsening renal function on CKD stgae 4 due to dehydration and infection F/U Renal recommendations and serial BMP IV Hydration. Code(s): N17.9 - ACUTE KIDNEY FAILURE, UNSPECIFIED; N18.9 - CHRONIC KIDNEY DISEASE, UNSPECIFIED Qualifiers: Chronic kidney disease stage: stage 4 (severe) (3) CKD stage 4 due to type 2 diabetes mellitus Assessment/Plan: [place] Code(s): E11.22 - TYPE 2 DIABETES MELLITUS W DIABETIC CHRONIC KIDNEY DISEASE; N18.4 - CHRONIC KIDNEY DISEASE, STAGE 4 (SEVERE) (4) HTN (hypertension) Assessment/Plan: Cont all home meds Code(s): I10 - ESSENTIAL (PRIMARY) HYPERTENSION (5) T2DM (type 2 diabetes mellitus) Assessment/Plan: Diabetic Diet F/U HBAIC cont correction dose insulin Code(s): E11.9 - TYPE 2 DIABETES MELLITUS WITHOUT COMPLICATIONS Qualifiers: Diabetes mellitus complication status: with neurologic complications Diabetes mellitus complication detail: with polyneuropathy (6) Neuropathy Assessment/Plan: Due to Diabetes cont Gabapentin Code(s): G62.9 - POLYNEUROPATHY, UNSPECIFIED (7) Anemia Assessment/Plan: Due to CKD f/U Iron paanel Code(s): D64.9 - ANEMIA, UNSPECIFIED (8) Chronic back pain Assessment/Plan: Cont Home meds Code(s): M54.9 - DORSALGIA, UNSPECIFIED; G89.29 - OTHER CHRONIC PAIN
[2017-10-06] MEDS ORDERED: DEXTROSE 5%-WATER - 50 ML IVPB ONE ×2 (15:09→21:54)
[2017-10-06] MEDS ORDERED: PIPERACILLIN/TAZOBACTAM 2.25 GM VIAL IVPB ONE ×2 (15:09→21:54)
--- NOTE | 2017-10-06 15:21 | EKG ---
Test Reason : Blood Pressure : / mmHG Vent. Rate : 129 BPM Atrial Rate : 129 BPM P-R Int : 130 ms QRS Dur : 118 ms QT Int : 320 ms P-R-T Axes : 023 084 020 degrees QTc Int : 468 ms POOR DATA QUALITY, INTERPRETATION MAY BE ADVERSELY AFFECTED SINUS TACHYCARDIA LOW VOLTAGE QRS INCOMPLETE RIGHT BUNDLE BRANCH BLOCK POSSIBLE INFERIOR INFARCT , AGE UNDETERMINED ABNORMAL ECG WHEN COMPARED WITH ECG OF 03-NOV-2012 11:59, BORDERLINE CRITERIA FOR INFERIOR INFARCT ARE NOW PRESENT Confirmed by KIAH COBOS, MANA ([id number]) on 10/06/2017 3:20:41 PM Referred By: Confirmed By:MANA DUPONT MD
--- NOTE | 2017-10-06 16:21 | CON.ID ---
Consult - History of Present Illness History of Present Illness: This is a 66 year old male with PMH of DM, CKD (reports Cr Cl of 28), peripheral neuropathy, HTN, who presented to the ED with 4 weeks of weakness, vomiting, dizziness, and report falls x 4 in past few weeks. He reports multiple falls due to diabetic neuropathy. He states he walks barefoot in the house because he has rugs but has been walking barefoot outside his house as well. He states he noticed skin peeling from the bottom of his feet about 3 wks ago but has not been getting regular wound care. In the ER he was found to be hypotensive, febrile, tachycardic and had elevated wbc. He denies any SOB/cough , chest pain, LOC, headache,dysuria, abd pain at this time. Exam of his feet revealed extensive ulceration and necrosis of plantar aspect b/l. - History Source History Provided By: Patient Limitations to Obtaining History: No Limitations - Past Medical History Renal/: Yes: Renal Failure Musculoskeletal: Yes: Chronic low back pain Endocrine: Yes: Diabetes Mellitus - Alcohol/Substance Use Hx Alcohol Use: No - Smoking History Smoking history: Former smoker Have you smoked in the past 12 months: No Aproximately how many cigarettes per day: 0 - Social History Usual Living Arrangement: Alone Home Medications - Allergies Allergies/Adverse Reactions: Allergies Allergy/AdvReac Type Severity Reaction Status Date / Time No Known Allergies Allergy Verified 10/05/17 13:46 - Home Medications Home Medications: Ambulatory Orders Amlodipine Besylate 5 mg PO DAILY 10/05/17 Amlodipine Besylate 5 mg PO DAILY 10/05/17 Gabapentin 300 mg PO BID 10/05/17 Glipizide [Glipizide ER] 5 mg PO DAILY 10/05/17 Omeprazole Magnesium [Prilosec] 40 mg PO DAILY 10/05/17 Tamsulosin HCl 0.4 mg PO HS 10/05/17 Valsartan 160 mg PO DAILY 10/05/17 oxyCODONE SR [Oxycontin] 20 mg PO BID 10/05/17 Review of Systems - Review of Systems Constitutional: reports: Fever HENT: denies: No Symptoms, Difficult Swallowing, Ear Discharge, Ear Pain, Epistaxis, Gingival Bleeding, Hearing Loss, Mouth Swelling, Nasal Congestion, Ocular Prosthesis, Throat Pain, Toothache, Ringing in Ears, Other Neck: reports: No Symptoms Cardiovascular: reports: No Symptoms Respiratory: reports: No Symptoms Gastrointestinal: reports: No Symptoms Genitourinary: reports: No Symptoms Musculoskeletal: reports: Extremity Pain Integumentary: reports: Erythema (b/l plantar ulcers) Neurological: reports: No Symptoms Endocrine: reports: No Symptoms Hematology/Lymphatic: reports: No Symptoms Psychiatric: reports: No Symptoms Physical Exam Vital Signs: Vital Signs Temperature 98.1 F 10/06/17 14:00 Pulse Rate 109 H 10/06/17 14:00 Respiratory Rate 10/06/17 10:00 Blood Pressure 121/66 10/06/17 14:00 O2 Sat by Pulse Oximetry (%) 97 10/06/17 09:00 Constitutional: Yes: No Distress, Calm HENT: Yes: Atraumatic Neck: Yes: Supple Cardiovascular: Yes: Tachycardia Respiratory: Yes: CTA Bilaterally Gastrointestinal: Yes: Normal Bowel Sounds, Soft Renal/: Yes: [place] Present (clear, yellow urine) Musculoskeletal: Yes: Muscle Weakness Edema: Yes Edema: LLE: 2+ (foot) Wound/Incision: Yes: Other (b/l plantar ulcers extensive, Lt foot edema with plantar ulcer with green drainage/necrotic tissue) Neurological: Yes: Alert Labs: CBC, BMP 10/06/17 06:50 10/06/17 06:50 Laboratory Tests 10/05/17 10/05/17 10/05/17 13:57 13:57 13:57 WBC 13.1 H RBC 3.48 L Hgb 9.4 L Hct 28.4 L MCV 81.6 MCH 26.9 MCHC 33.0 RDW 14.3 Plt Count 491 H MPV 7.6 Absolute Neuts (auto) 11.1 Neutrophils % 84.7 H Lymphocytes % 7.9 L D Monocytes % 6.2 Eosinophils % 0.5 Basophils % 0.7 Nucleated RBC % 0 ESR PT with INR INR PTT (Actin FS) VBG pH 7.39 POC VBG pCO2 42.6 POC VBG pO2 22.1 L Mixed VBG HCO3 25.2 H Sodium 135 L Potassium 5.3 H Chloride 98 Carbon Dioxide 26 Anion Gap 11 BUN 66 H Creatinine 5.8 H Creat Clearance w eGFR 9.83 POC Glucometer Random Glucose 181 H D Hemoglobin A1c % Lactic Acid Calcium 8.7 Total Bilirubin 0.3 AST 24 D ALT 17 D Alkaline Phosphatase 82 Creatine Kinase 250 Creatine Kinase Index 0.9 CK-MB (CK-2) 2.44 Troponin I < 0.02 C-Reactive Protein Total Protein 7.1 Albumin 2.2 L Urine Color Urine Appearance Urine pH Ur Specific [place] Urine Protein Urine Glucose (UA) Urine Ketones Urine Blood Urine Nitrite Urine Bilirubin Urine Urobilinogen Ur Leukocyte Esterase Urine WBC (Auto) Urine RBC (Auto) Ur Epithelial Cells Urine Mucus Blood Type Antibody Screen 10/05/17 10/05/17 10/05/17 13:57 13:57 14:09 WBC RBC Hgb Hct MCV MCH MCHC RDW Plt Count MPV Absolute Neuts (auto) Neutrophils % Lymphocytes % Monocytes % Eosinophils % Basophils % Nucleated RBC % ESR PT with INR 14.20 H INR 1.26 H PTT (Actin FS) 29.0 VBG pH POC VBG pCO2 POC VBG pO2 Mixed VBG HCO3 Sodium Potassium Chloride Carbon Dioxide Anion Gap BUN Creatinine Creat Clearance w eGFR POC Glucometer Random Glucose Hemoglobin A1c % Lactic Acid 2.0 Calcium Total Bilirubin AST ALT Alkaline Phosphatase Creatine Kinase Creatine Kinase Index CK-MB (CK-2) Troponin I C-Reactive Protein Total Protein Albumin Urine Color Urine Appearance Urine pH Ur Specific [place] Urine Protein Urine Glucose (UA) Urine Ketones Urine Blood Urine Nitrite Urine Bilirubin Urine Urobilinogen Ur Leukocyte Esterase Urine WBC (Auto) Urine RBC (Auto) Ur Epithelial Cells Urine Mucus Blood Type A POSITIVE Antibody Screen Negative 10/05/17 10/05/17 10/05/17 16:45 17:05 17:10 WBC RBC Hgb Hct MCV MCH MCHC RDW Plt Count MPV Absolute Neuts (auto) Neutrophils % Lymphocytes % Monocytes % Eosinophils % Basophils % Nucleated RBC % ESR PT with INR INR PTT (Actin FS) VBG pH POC VBG pCO2 POC VBG pO2 Mixed VBG HCO3 Sodium Potassium Chloride Carbon Dioxide Anion Gap BUN Creatinine Creat Clearance w eGFR POC Glucometer Random Glucose Hemoglobin A1c % Lactic Acid 1.0 Calcium Total Bilirubin AST ALT Alkaline Phosphatase Creatine Kinase 205 Creatine Kinase Index 0.9 CK-MB (CK-2) 1.97 Troponin I C-Reactive Protein Total Protein Albumin Urine Color Yellow Urine Appearance Slcloudy Urine pH 5.0 Ur Specific [place] 1.014 Urine Protein 1+ H Urine Glucose (UA) 1+ H Urine Ketones Negative Urine Blood 1+ H Urine Nitrite Negative Urine Bilirubin Negative Urine Urobilinogen Negative Ur Leukocyte Esterase Negative Urine WBC (Auto) 2 Urine RBC (Auto) 2 Ur Epithelial Cells Rare Urine Mucus Rare Blood Type Antibody Screen 10/05/17 10/05/17 10/05/17 18:30 18:30 18:47 WBC RBC Hgb Hct MCV MCH MCHC RDW Plt Count MPV Absolute Neuts (auto) Neutrophils % Lymphocytes % Monocytes % Eosinophils % Basophils % Nucleated RBC % ESR 116 H PT with INR INR PTT (Actin FS) VBG pH POC VBG pCO2 POC VBG pO2 Mixed VBG HCO3 Sodium Potassium Chloride Carbon Dioxide Anion Gap BUN Creatinine Creat Clearance w eGFR POC Glucometer [phone] Random Glucose Hemoglobin A1c % Lactic Acid Calcium Total Bilirubin AST ALT Alkaline Phosphatase Creatine Kinase Creatine Kinase Index CK-MB (CK-2) Troponin I C-Reactive Protein 12.9 H Total Protein Albumin Urine Color Urine Appearance Urine pH Ur Specific [place] Urine Protein Urine Glucose (UA) Urine Ketones Urine Blood Urine Nitrite Urine Bilirubin Urine Urobilinogen Ur Leukocyte Esterase Urine WBC (Auto) Urine RBC (Auto) Ur Epithelial Cells Urine Mucus Blood Type Antibody Screen 10/05/17 10/05/17 10/06/17 19:42 23:09 05:19 WBC RBC Hgb Hct MCV MCH MCHC RDW Plt Count MPV Absolute Neuts (auto) Neutrophils % Lymphocytes % Monocytes % Eosinophils % Basophils % Nucleated RBC % ESR PT with INR INR PTT (Actin FS) VBG pH POC VBG pCO2 POC VBG pO2 Mixed VBG HCO3 Sodium Potassium Chloride Carbon Dioxide Anion Gap BUN Creatinine Creat Clearance w eGFR POC Glucometer 167 112 Random Glucose Hemoglobin A1c % Lactic Acid Calcium Total Bilirubin AST ALT Alkaline Phosphatase Creatine Kinase Creatine Kinase Index CK-MB (CK-2) Troponin I C-Reactive Protein Total Protein Albumin Urine Color Urine Appearance Urine pH Ur Specific [place] Urine Protein Urine Glucose (UA) Urine Ketones Urine Blood Urine Nitrite Urine Bilirubin Urine Urobilinogen Ur Leukocyte Esterase Urine WBC (Auto) Urine RBC (Auto) Ur Epithelial Cells Urine Mucus Blood Type A POSITIVE Antibody Screen Negative 10/06/17 10/06/17 10/06/17 06:50 06:50 06:50 WBC 8.3 RBC 2.98 L Hgb 8.0 L Hct 24.5 L MCV 82.4 MCH 26.8 MCHC 32.5 RDW 14.6 Plt Count 384 D MPV 7.6 Absolute Neuts (auto) 5.7 Neutrophils % 68.5 Lymphocytes % 21.2 D Monocytes % 7.3 Eosinophils % 2.1 D Basophils % 0.9 Nucleated RBC % 0 ESR PT with INR INR PTT (Actin FS) VBG pH POC VBG pCO2 POC VBG pO2 Mixed VBG HCO3 Sodium 136 Potassium 4.5 Chloride 105 Carbon Dioxide 21 Anion Gap 10 BUN 56 H Creatinine 4.7 H Creat Clearance w eGFR 12.53 POC Glucometer Random Glucose 109 H D Hemoglobin A1c % 6.3 H D Lactic Acid Calcium 8.2 L Total Bilirubin 0.2 AST 17 D ALT 14 Alkaline Phosphatase 63 D Creatine Kinase Creatine Kinase Index CK-MB (CK-2) Troponin I C-Reactive Protein Total Protein 6.0 L Albumin 1.8 L Urine Color Urine Appearance Urine pH Ur Specific [place] Urine Protein Urine Glucose (UA) Urine Ketones Urine Blood Urine Nitrite Urine Bilirubin Urine Urobilinogen Ur Leukocyte Esterase Urine WBC (Auto) Urine RBC (Auto) Ur Epithelial Cells Urine Mucus Blood Type Antibody Screen 10/06/17 11:38 WBC RBC Hgb Hct MCV MCH MCHC RDW Plt Count MPV Absolute Neuts (auto) Neutrophils % Lymphocytes % Monocytes % Eosinophils % Basophils % Nucleated RBC % ESR PT with INR INR PTT (Actin FS) VBG pH POC VBG pCO2 POC VBG pO2 Mixed VBG HCO3 Sodium Potassium Chloride Carbon Dioxide Anion Gap BUN Creatinine Creat Clearance w eGFR POC Glucometer 161 Random Glucose Hemoglobin A1c % Lactic Acid Calcium Total Bilirubin AST ALT Alkaline Phosphatase Creatine Kinase Creatine Kinase Index CK-MB (CK-2) Troponin I C-Reactive Protein Total Protein Albumin Urine Color Urine Appearance Urine pH Ur Specific [place] Urine Protein Urine Glucose (UA) Urine Ketones Urine Blood Urine Nitrite Urine Bilirubin Urine Urobilinogen Ur Leukocyte Esterase Urine WBC (Auto) Urine RBC (Auto) Ur Epithelial Cells Urine Mucus Blood Type Antibody Screen Microbiology 10/05/17 13:57 Blood - Peripheral Venous Blood Culture - Preliminary NO GROWTH OBTAINED AFTER 24 HOURS, INCUBATION TO CONTINUE FOR 4 DAYS. 10/05/17 13:57 Blood - Peripheral Venous Blood Culture - Preliminary NO GROWTH OBTAINED AFTER 24 HOURS, INCUBATION TO CONTINUE FOR 4 DAYS. 10/05/17 14:04 Foot - Left Heel Gram Stain - Final 10/05/17 14:04 Foot - Left Heel Wound Culture - Preliminary Pending Organism Pending Organism#2 Staphylococcus Coagulase Neg Imaging - Results Chest X-ray: Report Reviewed X-ray: Report Reviewed (Lt foot with soft tissue +gas) MRI: Pending Problem List - Problems (1) Acute on chronic kidney failure Code(s): N17.9 - ACUTE KIDNEY FAILURE, UNSPECIFIED; N18.9 - CHRONIC KIDNEY DISEASE, UNSPECIFIED Qualifiers: Chronic kidney disease stage: stage 4 (severe) (2) Anemia Code(s): D64.9 - ANEMIA, UNSPECIFIED (3) Cellulitis and abscess of foot Code(s): L03.119 - CELLULITIS OF UNSPECIFIED PART OF LIMB; L02.619 - CUTANEOUS ABSCESS OF UNSPECIFIED FOOT (4) Chronic back pain Code(s): M54.9 - DORSALGIA, UNSPECIFIED; G89.29 - OTHER CHRONIC PAIN (5) HTN (hypertension) Code(s): I10 - ESSENTIAL (PRIMARY) HYPERTENSION (6) Neuropathy Code(s): G62.9 - POLYNEUROPATHY, UNSPECIFIED (7) Sepsis Code(s): A41.9 - SEPSIS, UNSPECIFIED ORGANISM (8) T2DM (type 2 diabetes mellitus) Code(s): E11.9 - TYPE 2 DIABETES MELLITUS WITHOUT COMPLICATIONS Qualifiers: Diabetes mellitus complication status: with neurologic complications Diabetes mellitus complication detail: with polyneuropathy Assessment/Plan This is a 66 year old male with PMH of DM, foot ulcers, CKD (reports Cr Cl of 28 ), peripheral neuropathy, HTN, presenting with b/l plantar ulcers with drainage/ necrosis, hypotension, fever, leukocytosis, tachycardia Sepsis b/l plantar infected foot ulcers/Lt foot severe soft tissue infection r/o Osteomyelitis UMER on CKD Uncontrolled DM Peripheral Neuropathy HTN -- continue Zosyn/Clindamycin, Vancomycin x 1 dose given yesterday -- check vancomycin level tomorrow -- f/u wound culture results and MRI results -- continue monitor wbc/renal function along with vitals closely -- cont. wound care -- podiatry evaluation pt currently afebrile, leukocytosis and hypotension resolved Thank you
[2017-10-06] MEDS ORDERED: ACETAMINOPHEN 325 MG TABLET (FP) PO PRN (17:33)
[2017-10-06] MEDS ORDERED: oxyCODONE HCL 5 MG TABLET PO PRN (17:33)
[2017-10-06 20:31] LABS: URINE CREATININE 56.1 mg/dL (20-370)
[2017-10-06] MEDS: oxyCODONE HCL 10 MG SUSTAINED ACTING TABLET PO SCH (21:38)
[2017-10-06] MEDS: GABAPENTIN 300 MG CAPSULE (FP) PO SCH (21:39)
[2017-10-06] MEDS: ZOLPIDEM TARTRATE 5 MG TABLET PO PRN (21:39)
[2017-10-06] MEDS: TAMSULOSIN HCL 0.4 MG CAP.ER.24H (FP) PO SCH (21:39)
[2017-10-06] MEDS ORDERED: oxyCODONE HCL 10 MG SUSTAINED ACTING TABLET PO SCH (22:00)
[2017-10-07] MEDS: CLINDAMYCIN 600MG PREMIX IVPB 600 MG/50 ML BAG IVPB SCH ×3 (01:08→18:19)
[2017-10-07] MEDS ORDERED: PIPERACILLIN/TAZOBACTAM 2.25 GM VIAL IVPB ONE ×3 (06:38→22:49)
[2017-10-07] MEDS ORDERED: DEXTROSE 5%-WATER - 100 ML IVPB ONE (06:39)
[2017-10-07] MEDS: INSULIN SLIDING SCALE (NOVOLOG) 1 VIAL SQ SCH ×4 (06:53→22:47)
[2017-10-07] MEDS: PIPERACILLIN/TAZOB 2.25 GM 2.25 GM in DEXTROSE 5%-WATER - 50 ML IVPB SCH ×3 (06:55→22:57)
[2017-10-07 07:11] LABS: BASO % 1.1 % (0-2.0); EOS % 3.5 % (0-4.5); HEMATOCRIT 26.3 % (35.4-49); HEMOGLOBIN 8.7 GM/dL (11.7-16.9); LYMPH % 30.6 % (8-40); MCH 27.2 pg (25.7-33.7); MCHC 33.2 g/dl (32.0-35.9); MEAN CELL VOLUME 81.9 fl (80-96); MEAN PLT VOLUME 7.3 fl (7.5-11.1); MONO % 7.6 % (3.8-10.2); NEUT % 57.2 % (42.8-82.8); PLATELET COUNT 418 K/MM3 (134-434); RDW 14.5 % (11.9-15.9); WHITE BLOOD COUNT 6.1 K/mm3 (4.0-10.0)
[2017-10-07 07:37] LABS: CHLORIDE 108 mmol/L (98-107); POTASSIUM 4.9 mmol/L (3.5-5.1); SODIUM 140 mmol/L (136-145)
[2017-10-07 07:47] LABS: ALBUMIN 1.9 g/dl (3.4-5.0); ALK PHOS 62 U/L (45-117); ANION GAP 11 (8-16); BILIRUBIN,TOTAL 0.3 mg/dL (0.2-1.0); BLOOD UREA NITROGEN 43 mg/dL (7-18); CALCIUM 8.2 mg/dL (8.5-10.1); CO2 21 mmol/L (21-32); GLUCOSE,RANDOM 93 mg/dL (74-106); MAGNESIUM 1.9 mg/dL (1.8-2.4); PHOSPHOROUS 4.1 mg/dL (2.5-4.9); SGOT/AST 19 U/L (15-37); SGPT/ALT 13 U/L (12-78); TOT PROT 6.3 g/dl (6.4-8.2)
[2017-10-07] MEDS: PANTOPRAZOLE 40 MG TABLET (FP) PO SCH (09:29)
[2017-10-07] MEDS: GABAPENTIN 300 MG CAPSULE (FP) PO SCH ×2 (09:29→21:14)
[2017-10-07] MEDS: amLODIPine BESYLATE 5 MG TABLET (FP) PO SCH (09:29)
[2017-10-07] MEDS: FERROUS SO4 325 MG TABLET (FP) PO SCH (09:29)
[2017-10-07] MEDS: oxyCODONE HCL 10 MG SUSTAINED ACTING TABLET PO SCH ×2 (09:30→21:13)
[2017-10-07] MEDS: SODIUM CHLORIDE 1,000 ML IV SCH (09:31)
--- NOTE | 2017-10-07 11:46 | PN ---
Progress Note, Physician Chief Complaint: Mr Chaparro says he is feeling much better. Denies cp, sob, n/v. - Current Medication List Current Medications: Active Medications Acetaminophen (Tylenol -) 325 mg PO Q8H PRN PRN Reason: PAIN LEVEL 4 - 6 Last Admin: 10/06/17 17:53 Dose: 325 mg Amlodipine Besylate (Norvasc -) 5 mg PO DAILY [facility] Last Admin: 10/07/17 09:29 Dose: 5 mg Ferrous Sulfate (Feosol -) 325 mg PO DAILY [facility] Last Admin: 10/07/17 09:29 Dose: 325 mg Gabapentin (Neurontin -) 300 mg PO BID [facility] Last Admin: 10/07/17 09:29 Dose: 300 mg Piperacillin Sod/Tazobactam (Sod 2.25 gm/ Dextrose) 50 mls @ 100 mls/hr IVPB Q8H [facility] Last Admin: 10/07/17 06:55 Dose: 100 mls/hr Clindamycin Phosphate (Cleocin 600 Mg Premix Ivpb -) 600 mg in 50 mls @ 100 mls /hr IVPB Q8H-IV [facility]; Protocol Last Admin: 10/07/17 09:29 Dose: 100 mls/hr Sodium Chloride (Normal Saline -) 1,000 mls @ 83 mls/hr IV ASDIR [facility] Last Admin: 10/07/17 09:31 Dose: Not Given Insulin Aspart (Novolog Vial Sliding Scale -) 1 vial SQ ACHS [facility]; Protocol Last Admin: 10/07/17 06:53 Dose: Not Given Oxycodone HCl (Oxycontin -) 20 mg PO BID [facility] Last Admin: 10/07/17 09:30 Dose: 20 mg Oxycodone HCl (Roxicodone -) 5 mg PO Q8H PRN PRN Reason: PAIN LEVEL 4 - 6 Last Admin: 10/06/17 17:53 Dose: 5 mg Pantoprazole Sodium (Protonix -) 40 mg PO DAILY [facility] Last Admin: 10/07/17 09:29 Dose: 40 mg Tamsulosin HCl (Flomax -) 0.4 mg PO HS [facility] Last Admin: 10/06/17 21:39 Dose: 0.4 mg Zolpidem Tartrate (Ambien -) 5 mg PO HS PRN PRN Reason: INSOMNIA Last Admin: 10/06/17 21:39 Dose: 5 mg - Objective Vital Signs: Vital Signs Temperature 36.9 C 10/07/17 09:00 Pulse Rate 98 H 10/07/17 09:00 Respiratory Rate 18 10/07/17 09:00 Blood Pressure 134/84 10/07/17 09:00 O2 Sat by Pulse Oximetry (%) 99 10/07/17 09:00 Constitutional: Yes: Well Nourished, No Distress, Calm Cardiovascular: Yes: Regular Rate and Rhythm. No: Gallop, Murmur, Rub Respiratory: Yes: Regular, CTA Bilaterally. No: Rales, Rhonchi, Wheezes Gastrointestinal: Yes: Normal Bowel Sounds, Soft. No: Distention, Tenderness Extremities: Yes: Other (BLE wrapped) Edema: No Labs: CBC, BMP 10/07/17 05:30 10/07/17 05:30 INR, PTT INR 1.26 (0.82-1.09) H 10/05/17 13:57 Problem List - Problems (1) Cellulitis and abscess of foot Assessment/Plan: -appreciate ID assistance -MRI reviewed -podiatry consulted -continue clindamycin and zosyn currently Code(s): L03.119 - CELLULITIS OF UNSPECIFIED PART OF LIMB; L02.619 - CUTANEOUS ABSCESS OF UNSPECIFIED FOOT (2) Acute on chronic kidney failure Assessment/Plan: -nephrology following -continue IVF -improving Code(s): N17.9 - ACUTE KIDNEY FAILURE, UNSPECIFIED; N18.9 - CHRONIC KIDNEY DISEASE, UNSPECIFIED Qualifiers: Chronic kidney disease stage: stage 4 (severe) (3) Anemia Assessment/Plan: -follow up iron studies -suspect anemia of chronic disease -stable, no need for transfusion Code(s): D64.9 - ANEMIA, UNSPECIFIED Qualifiers: Anemia type: due to chronic kidney disease Chronic kidney disease stage: stage 4 (severe) Qualified Code(s): N18.4 - Chronic kidney disease, stage 4 ( severe); D63.1 - Anemia in chronic kidney disease (4) HTN (hypertension) Assessment/Plan: -well controlled -continue current management Code(s): I10 - ESSENTIAL (PRIMARY) HYPERTENSION (5) Neuropathy Assessment/Plan: -continue gabapentin Code(s): G62.9 - POLYNEUROPATHY, UNSPECIFIED (6) Chronic back pain Assessment/Plan: -controlled with oxycodone Code(s): M54.9 - DORSALGIA, UNSPECIFIED; G89.29 - OTHER CHRONIC PAIN (7) Sepsis Assessment/Plan: -present on admission -resolving Code(s): A41.9 - SEPSIS, UNSPECIFIED ORGANISM
[2017-10-07] MEDS ORDERED: DEXTROSE 5%-WATER - 50 ML IVPB ONE ×2 (14:33→22:49)
--- NOTE | 2017-10-07 15:40 | PN ---
Progress Note, Physician History of Present Illness: patient mentions that he is feeling better today had come in with sepsis picture xray noted and noted patient has gas in the tissues vascular/podiatry yet to see the patient - Current Medication List Current Medications: Active Medications Acetaminophen (Tylenol -) 325 mg PO Q8H PRN PRN Reason: PAIN LEVEL 4 - 6 Last Admin: 10/06/17 17:53 Dose: 325 mg Amlodipine Besylate (Norvasc -) 5 mg PO DAILY [facility] Last Admin: 10/07/17 09:29 Dose: 5 mg Ferrous Sulfate (Feosol -) 325 mg PO DAILY [facility] Last Admin: 10/07/17 09:29 Dose: 325 mg Gabapentin (Neurontin -) 300 mg PO BID [facility] Last Admin: 10/07/17 09:29 Dose: 300 mg Piperacillin Sod/Tazobactam (Sod 2.25 gm/ Dextrose) 50 mls @ 100 mls/hr IVPB Q8H [facility] Last Admin: 10/07/17 14:49 Dose: 100 mls/hr Clindamycin Phosphate (Cleocin 600 Mg Premix Ivpb -) 600 mg in 50 mls @ 100 mls /hr IVPB Q8H-IV [facility]; Protocol Last Admin: 10/07/17 09:29 Dose: 100 mls/hr Sodium Chloride (Normal Saline -) 1,000 mls @ 83 mls/hr IV ASDIR [facility] Last Admin: 10/07/17 09:31 Dose: Not Given Insulin Aspart (Novolog Vial Sliding Scale -) 1 vial SQ ACHS [facility]; Protocol Last Admin: 10/07/17 12:15 Dose: Not Given Oxycodone HCl (Oxycontin -) 20 mg PO BID [facility] Last Admin: 10/07/17 09:30 Dose: 20 mg Oxycodone HCl (Roxicodone -) 5 mg PO Q8H PRN PRN Reason: PAIN LEVEL 4 - 6 Last Admin: 10/06/17 17:53 Dose: 5 mg Pantoprazole Sodium (Protonix -) 40 mg PO DAILY [facility] Last Admin: 10/07/17 09:29 Dose: 40 mg Tamsulosin HCl (Flomax -) 0.4 mg PO HS [facility] Last Admin: 10/06/17 21:39 Dose: 0.4 mg Zolpidem Tartrate (Ambien -) 5 mg PO HS PRN PRN Reason: INSOMNIA Last Admin: 10/06/17 21:39 Dose: 5 mg - Objective Vital Signs: Vital Signs Temperature 98.6 F 10/07/17 14:00 Pulse Rate 112 H 10/07/17 14:00 Respiratory Rate 20 10/07/17 14:00 Blood Pressure 135/79 10/07/17 14:00 O2 Sat by Pulse Oximetry (%) 99 10/07/17 09:00 Constitutional: Yes: No Distress, Calm Cardiovascular: Yes: Regular Rate and Rhythm Respiratory: Yes: Regular, CTA Bilaterally Musculoskeletal: Yes: Other Extremities: Yes: Other Wound/Incision: Yes: Other (b/l dressing on the legs) Neurological: Yes: Alert, Oriented Psychiatric: Yes: Alert, Oriented Labs: CBC, BMP 10/07/17 05:30 10/07/17 05:30 INR, PTT INR 1.26 (0.82-1.09) H 10/05/17 13:57 - ....Imaging X-ray: Report Reviewed, Image Reviewed Assessment/Plan Problem List - Problems (1) Acute on chronic kidney failure Code(s): N17.9 - ACUTE KIDNEY FAILURE, UNSPECIFIED; N18.9 - CHRONIC KIDNEY DISEASE, UNSPECIFIED Qualifiers: Chronic kidney disease stage: stage 4 (severe) (2) Anemia Code(s): D64.9 - ANEMIA, UNSPECIFIED (3) Cellulitis and abscess of foot Code(s): L03.119 - CELLULITIS OF UNSPECIFIED PART OF LIMB; L02.619 - CUTANEOUS ABSCESS OF UNSPECIFIED FOOT (4) Chronic back pain Code(s): M54.9 - DORSALGIA, UNSPECIFIED; G89.29 - OTHER CHRONIC PAIN (5) HTN (hypertension) Code(s): I10 - ESSENTIAL (PRIMARY) HYPERTENSION (6) Neuropathy Code(s): G62.9 - POLYNEUROPATHY, UNSPECIFIED (7) Sepsis Code(s): A41.9 - SEPSIS, UNSPECIFIED ORGANISM (8) T2DM (type 2 diabetes mellitus) Code(s): E11.9 - TYPE 2 DIABETES MELLITUS WITHOUT COMPLICATIONS Qualifiers: Diabetes mellitus complication status: with neurologic complications Diabetes mellitus complication detail: with polyneuropathy 9 left foot gas gangrene Assessment/Plan awaiting vascular/podiatry to see the patient continue abx wound care I spoke with podiatry today--This was overlooked covering MD over the weekend podiatry planning to take the patient to the operating room tomorrow very close watch on the patient as patient can detoriate
--- NOTE | 2017-10-07 16:37 | PN ---
Progress Note (short form) - Note Progress Note: Renal follow up for UMER on CKD Pt seen and examined at the bedside no acute complaints no sob, chest pain, abd pain, fever, N/V/D on IVF making urine Vital Signs Temperature 98.6 F 10/07/17 14:00 Pulse Rate 112 H 10/07/17 14:00 Respiratory Rate 20 10/07/17 14:00 Blood Pressure 135/79 10/07/17 14:00 O2 Sat by Pulse Oximetry (%) 99 10/07/17 09:00 Intake & Output 10/04/17 10/05/17 10/06/17 10/07/17 23:59 23:59 23:59 23:59 Intake Total 2800 1280 1200 Output Total 600 1700 1400 Balance 2200 -420 -200 Weight 83.915 kg 73.573 kg NAD Neck supple RRR, No M/R CTA no LE edema both feet in dressings CBC, BMP 10/07/17 05:30 10/07/17 05:30 Current Medications Acetaminophen (Tylenol -) 325 mg PO Q8H PRN PRN Reason: PAIN LEVEL 4 - 6 Last Admin: 10/06/17 17:53 Dose: 325 mg Amlodipine Besylate (Norvasc -) 5 mg PO DAILY [facility] Last Admin: 10/07/17 09:29 Dose: 5 mg Ferrous Sulfate (Feosol -) 325 mg PO DAILY [facility] Last Admin: 10/07/17 09:29 Dose: 325 mg Gabapentin (Neurontin -) 300 mg PO BID [facility] Last Admin: 10/07/17 09:29 Dose: 300 mg Piperacillin Sod/Tazobactam (Sod 2.25 gm/ Dextrose) 50 mls @ 100 mls/hr IVPB Q8H [facility] Last Admin: 10/07/17 14:49 Dose: 100 mls/hr Clindamycin Phosphate (Cleocin 600 Mg Premix Ivpb -) 600 mg in 50 mls @ 100 mls /hr IVPB Q8H-IV [facility]; Protocol Last Admin: 10/07/17 09:29 Dose: 100 mls/hr Sodium Chloride (Normal Saline -) 1,000 mls @ 83 mls/hr IV ASDIR [facility] Last Admin: 10/07/17 09:31 Dose: Not Given Insulin Aspart (Novolog Vial Sliding Scale -) 1 vial SQ ACHS [facility]; Protocol Last Admin: 10/07/17 12:15 Dose: Not Given Oxycodone HCl (Oxycontin -) 20 mg PO BID [facility] Last Admin: 10/07/17 09:30 Dose: 20 mg Oxycodone HCl (Roxicodone -) 5 mg PO Q8H PRN PRN Reason: PAIN LEVEL 4 - 6 Last Admin: 10/06/17 17:53 Dose: 5 mg Pantoprazole Sodium (Protonix -) 40 mg PO DAILY [facility] Last Admin: 10/07/17 09:29 Dose: 40 mg Tamsulosin HCl (Flomax -) 0.4 mg PO HS [facility] Last Admin: 10/06/17 21:39 Dose: 0.4 mg Zolpidem Tartrate (Ambien -) 5 mg PO HS PRN PRN Reason: INSOMNIA Last Admin: 10/06/17 21:39 Dose: 5 mg 66 year old gentleman with PMhx of CKD, Hyperkalemia, DM with retinopathy and peripheral neuropathy, Hypertension, Anemia requiring transfusions in the past who presented from home with history of N/V, dizziness and falls and admitted for Sepsis with possible osteomylitis with Cr of 5.8. #UMER on CKD4 (baseline Cr 2.8 as of June) #Mild Hyperkalemia #Sepsis/Possible Osteomyliits/Fever/Leukocytosis #Chronic Anemia #Hx of Hypertension #DM Renal function improving Urine studies show FeNa of 4% indicating tubular injury UPCR was subnephrotic would continue IVF at the present rate continue to hold ARB dose all meds for CrCl < 15 Abx as per ID f/u iron studies, no indication for transfusion at the present time Thank you Marvin Rosales DO
[2017-10-07] MEDS: ZOLPIDEM TARTRATE 5 MG TABLET PO PRN (21:14)
[2017-10-07] MEDS: TAMSULOSIN HCL 0.4 MG CAP.ER.24H (FP) PO SCH (21:14)
[2017-10-08] MEDS: CLINDAMYCIN 600MG PREMIX IVPB 600 MG/50 ML BAG IVPB SCH ×3 (01:35→18:18)
[2017-10-08 06:09] LABS: SERUM IRON SATURATION 12 % (15-55); TOTAL IRON BINDING CAPACITY 146 ug/dL (250-450); UIBC 128 ug/dL (111-343)
[2017-10-08] MEDS ORDERED: PIPERACILLIN/TAZOBACTAM 2.25 GM VIAL IVPB ONE ×2 (06:15→18:17)
[2017-10-08] MEDS ORDERED: DEXTROSE 5%-WATER - 50 ML IVPB ONE ×2 (06:15→18:17)
[2017-10-08] MEDS: INSULIN SLIDING SCALE (NOVOLOG) 1 VIAL SQ SCH ×3 (06:15→22:51)
[2017-10-08] MEDS: PIPERACILLIN/TAZOB 2.25 GM 2.25 GM in DEXTROSE 5%-WATER - 50 ML IVPB SCH ×2 (06:17→18:18)
[2017-10-08 07:19] LABS: BASO % 1.2 % (0-2.0); EOS % 4.1 % (0-4.5); HEMATOCRIT 27.2 % (35.4-49); HEMOGLOBIN 8.9 GM/dL (11.7-16.9); LYMPH % 31.2 % (8-40); MCHC 32.7 g/dl (32.0-35.9); MEAN CELL VOLUME 82.6 fl (80-96); MEAN PLT VOLUME 7.2 fl (7.5-11.1); MONO % 6.8 % (3.8-10.2); NEUT % 56.7 % (42.8-82.8); PLATELET COUNT 457 K/MM3 (134-434); RBC 3.29 M/mm3 (4.00-5.60); WHITE BLOOD COUNT 7.2 K/mm3 (4.0-10.0)
[2017-10-08 07:56] LABS: ANION GAP 10 (8-16); BLOOD UREA NITROGEN 32 mg/dL (7-18); CALCIUM 8.4 mg/dL (8.5-10.1); CHLORIDE 107 mmol/L (98-107); CO2 21 mmol/L (21-32); CREATININE 3.6 mg/dL (0.7-1.3); GLUCOSE,RANDOM 105 mg/dL (74-106); MAGNESIUM 1.6 mg/dL (1.8-2.4); PHOSPHOROUS 4.1 mg/dL (2.5-4.9); POTASSIUM 4.8 mmol/L (3.5-5.1); SODIUM 138 mmol/L (136-145)
[2017-10-08 08:09] LABS: SERUM IRON SATURATION 16 % (15-55); TOTAL IRON BINDING CAPACITY 147 ug/dL (250-450); UIBC 123 ug/dL (111-343)
[2017-10-08] MEDS: GABAPENTIN 300 MG CAPSULE (FP) PO SCH ×2 (09:13→22:50)
[2017-10-08] MEDS: PANTOPRAZOLE 40 MG TABLET (FP) PO SCH (09:13)
[2017-10-08] MEDS: FERROUS SO4 325 MG TABLET (FP) PO SCH (09:13)
[2017-10-08] MEDS: amLODIPine BESYLATE 5 MG TABLET (FP) PO SCH (09:13)
[2017-10-08] MEDS: oxyCODONE HCL 10 MG SUSTAINED ACTING TABLET PO SCH ×2 (09:13→22:49)
[2017-10-08] MEDS: SODIUM CHLORIDE 1,000 ML IV SCH ×2 (09:14→18:19)
--- NOTE | 2017-10-08 11:19 | PN ---
Progress Note, Physician Chief Complaint: Mr Chaparro says he is feeling good and is eager to go home. No cp, sob, n/v. - Current Medication List Current Medications: Active Medications Acetaminophen (Tylenol -) 325 mg PO Q8H PRN PRN Reason: PAIN LEVEL 4 - 6 Last Admin: 10/06/17 17:53 Dose: 325 mg Amlodipine Besylate (Norvasc -) 5 mg PO DAILY [facility] Last Admin: 10/08/17 09:13 Dose: 5 mg Ferrous Sulfate (Feosol -) 325 mg PO DAILY [facility] Last Admin: 10/08/17 09:13 Dose: 325 mg Gabapentin (Neurontin -) 300 mg PO BID [facility] Last Admin: 10/08/17 09:13 Dose: 300 mg Piperacillin Sod/Tazobactam (Sod 2.25 gm/ Dextrose) 50 mls @ 100 mls/hr IVPB Q8H [facility] Last Admin: 10/08/17 06:17 Dose: 100 mls/hr Clindamycin Phosphate (Cleocin 600 Mg Premix Ivpb -) 600 mg in 50 mls @ 100 mls /hr IVPB Q8H-IV [facility]; Protocol Last Admin: 10/08/17 09:13 Dose: 100 mls/hr Sodium Chloride (Normal Saline -) 1,000 mls @ 83 mls/hr IV ASDIR [facility] Last Admin: 10/08/17 09:14 Dose: 83 mls/hr Insulin Aspart (Novolog Vial Sliding Scale -) 1 vial SQ ACHS [facility]; Protocol Last Admin: 10/08/17 06:15 Dose: Not Given Oxycodone HCl (Oxycontin -) 20 mg PO BID [facility] Last Admin: 10/08/17 09:13 Dose: 20 mg Oxycodone HCl (Roxicodone -) 5 mg PO Q8H PRN PRN Reason: PAIN LEVEL 4 - 6 Last Admin: 10/06/17 17:53 Dose: 5 mg Pantoprazole Sodium (Protonix -) 40 mg PO DAILY [facility] Last Admin: 10/08/17 09:13 Dose: 40 mg Tamsulosin HCl (Flomax -) 0.4 mg PO HS [facility] Last Admin: 10/07/17 21:14 Dose: 0.4 mg Zolpidem Tartrate (Ambien -) 5 mg PO HS PRN PRN Reason: INSOMNIA Last Admin: 10/07/17 21:14 Dose: 5 mg - Objective Vital Signs: Vital Signs Temperature 36.9 C 10/08/17 09:00 Pulse Rate 89 10/08/17 09:00 Respiratory Rate 18 10/08/17 09:00 Blood Pressure 129/79 10/08/17 09:00 O2 Sat by Pulse Oximetry (%) 96 10/08/17 09:00 Constitutional: Yes: Well Nourished, No Distress, Calm Cardiovascular: Yes: Regular Rate and Rhythm. No: Gallop, Murmur, Rub Respiratory: Yes: Regular, CTA Bilaterally. No: Rales, Rhonchi, Wheezes Gastrointestinal: Yes: Normal Bowel Sounds, Soft. No: Distention, Tenderness Extremities: Yes: Other (BLE wrapped with drainage noted on left) Edema: No Labs: CBC, BMP 10/08/17 06:50 10/08/17 06:50 INR, PTT INR 1.26 (0.82-1.09) H 10/05/17 13:57 Problem List - Problems (1) Cellulitis and abscess of foot Code(s): L03.119 - CELLULITIS OF UNSPECIFIED PART OF LIMB; L02.619 - CUTANEOUS ABSCESS OF UNSPECIFIED FOOT (2) Acute on chronic kidney failure Code(s): N17.9 - ACUTE KIDNEY FAILURE, UNSPECIFIED; N18.9 - CHRONIC KIDNEY DISEASE, UNSPECIFIED Qualifiers: Chronic kidney disease stage: stage 4 (severe) (3) Anemia Code(s): D64.9 - ANEMIA, UNSPECIFIED Qualifiers: Anemia type: due to chronic kidney disease Chronic kidney disease stage: stage 4 (severe) Qualified Code(s): N18.4 - Chronic kidney disease, stage 4 ( severe); D63.1 - Anemia in chronic kidney disease (4) HTN (hypertension) Code(s): I10 - ESSENTIAL (PRIMARY) HYPERTENSION (5) Neuropathy Code(s): G62.9 - POLYNEUROPATHY, UNSPECIFIED (6) Chronic back pain Code(s): M54.9 - DORSALGIA, UNSPECIFIED; G89.29 - OTHER CHRONIC PAIN (7) Sepsis Code(s): A41.9 - SEPSIS, UNSPECIFIED ORGANISM Assessment/Plan (1) Cellulitis and abscess of foot Assessment/Plan: -case d/w podiatry yesterday -patient presented over the weekend and was found to have gas gangrene -patient was noted to be a surgical emergency and request was put in for department operations manager vascular surgeon to address (no podiatry call or availability on weekend) -however no vascular surgery consult was placed -upon taking over case on Saturday, noted gas gangrene and case d/w both ID and vascular surgery about care of patient -because responsive to antibiotics and no longer septic, also with spontaneous drainage happening patient felt stable to go to OR today -continue zosyn and clindamycin, plan for debridement today per podiatry Code(s): L03.119 - CELLULITIS OF UNSPECIFIED PART OF LIMB; L02.619 - CUTANEOUS ABSCESS OF UNSPECIFIED FOOT (2) Acute on chronic kidney failure Assessment/Plan: -nephrology following -continue IVF -improving Code(s): N17.9 - ACUTE KIDNEY FAILURE, UNSPECIFIED; N18.9 - CHRONIC KIDNEY DISEASE, UNSPECIFIED Qualifiers: Chronic kidney disease stage: stage 4 (severe) (3) Anemia Assessment/Plan: -anemia of chronic disease -stable, no need for transfusion Code(s): D64.9 - ANEMIA, UNSPECIFIED Qualifiers: Anemia type: due to chronic kidney disease Chronic kidney disease stage: stage 4 (severe) Qualified Code(s): N18.4 - Chronic kidney disease, stage 4 ( severe); D63.1 - Anemia in chronic kidney disease (4) HTN (hypertension) Assessment/Plan: -well controlled -continue current management Code(s): I10 - ESSENTIAL (PRIMARY) HYPERTENSION (5) Neuropathy Assessment/Plan: -continue gabapentin Code(s): G62.9 - POLYNEUROPATHY, UNSPECIFIED (6) Chronic back pain Assessment/Plan: -controlled with oxycodone Code(s): M54.9 - DORSALGIA, UNSPECIFIED; G89.29 - OTHER CHRONIC PAIN (7) Sepsis Assessment/Plan: -present on admission -resolved Code(s): A41.9 - SEPSIS, UNSPECIFIED ORGANISM
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
[2017-10-08] MEDS ORDERED: MAGNESIUM OXIDE 400 MG TABLET (FP) PO ONE ×2 (14:45→17:30)
[2017-10-08] MEDS ORDERED: LIDOCAINE HCL 2% (20ML MULTI-DOSE VIAL) NR ONE (14:59)
[2017-10-08] MEDS ORDERED: BUPIVACAINE HCL/PF 0.25% (2.5MG/ML) 10 ML VIAL ONE (14:59)
[2017-10-08] MEDS ORDERED: MIDAZOLAM HCL 2 MG/2 ML SINGLE DOSE VIAL ONE ×3 (15:04→16:08)
[2017-10-08] MEDS ORDERED: LIDOCAINE HCL 2% (50ML VIAL) INF ONE (15:47)
--- NOTE | 2017-10-08 16:26 | OP ---
Operative Note - Note: Operative Date: 10/08/17 Pre-Operative Diagnosis: Diabetic foot ulcers, bilateral. Osteomyelitis of left heel Operation: Debridement of bilateral foot ulcers with bone biopsy left heel Post-Operative Diagnosis: Same as Pre-op Surgeon: García Reynoso Anesthesia: Local, MAC Specimens Removed: bone, left heel Estimated Blood Loss (mls): 30 Instrument used (Debridements only): #15 blade scalpel, scissors and forceps Operative Report Dictated: Yes
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
[2017-10-08] MEDS ORDERED: ACETAMINOPHEN 325 MG TABLET (FP) PO PRN (17:08)
[2017-10-08] MEDS ORDERED: oxyCODONE HCL 5 MG TABLET PO PRN (17:08)
[2017-10-08 19:45] VITALS: BMI 21.9
[2017-10-08] MEDS: ZOLPIDEM TARTRATE 5 MG TABLET PO PRN (22:49)
[2017-10-08] MEDS: TAMSULOSIN HCL 0.4 MG CAP.ER.24H (FP) PO SCH (22:49)
[2017-10-09] MEDS ORDERED: PIPERACILLIN/TAZOBACTAM 2.25 GM VIAL IVPB ONE ×3 (01:55→17:11)
[2017-10-09] MEDS ORDERED: DEXTROSE 5%-WATER - 50 ML IVPB ONE ×3 (01:56→17:11)
[2017-10-09] MEDS: CLINDAMYCIN 600MG PREMIX IVPB 600 MG/50 ML BAG IVPB SCH ×3 (02:03→17:41)
[2017-10-09] MEDS: PIPERACILLIN/TAZOB 2.25 GM 2.25 GM in DEXTROSE 5%-WATER - 50 ML IVPB SCH ×3 (02:45→17:41)
[2017-10-09] MEDS: INSULIN SLIDING SCALE (NOVOLOG) 1 VIAL SQ SCH ×4 (06:02→22:03)
[2017-10-09 06:33] LABS: BASO % 1.2 % (0-2.0); EOS % 3.8 % (0-4.5); HEMATOCRIT 21.1 % (35.4-49); LYMPH % 31.2 % (8-40); MCHC 32.7 g/dl (32.0-35.9); MEAN CELL VOLUME 82.6 fl (80-96); MEAN PLT VOLUME 7.5 fl (7.5-11.1); MONO % 8.8 % (3.8-10.2); PLATELET COUNT 344 K/MM3 (134-434); RBC 2.55 M/mm3 (4.00-5.60); RDW 14.8 % (11.9-15.9); WHITE BLOOD COUNT 6.5 K/mm3 (4.0-10.0)
[2017-10-09 06:47] LABS: HEMOGLOBIN 6.9 GM/dL (11.7-16.9)
[2017-10-09 07:06] LABS: ANION GAP 7 (8-16); CALCIUM 7.4 mg/dL (8.5-10.1); CHLORIDE 107 mmol/L (98-107); CO2 24 mmol/L (21-32); GLUCOSE,RANDOM 147 mg/dL (74-106); MAGNESIUM 1.5 mg/dL (1.8-2.4); POTASSIUM 5.4 mmol/L (3.5-5.1); SODIUM 138 mmol/L (136-145)
[2017-10-09 07:09] LABS: BLOOD UREA NITROGEN 30 mg/dL (7-18); CREATININE 3.6 mg/dL (0.7-1.3); PHOSPHOROUS 4.8 mg/dL (2.5-4.9)
[2017-10-09] MEDS: FERROUS SO4 325 MG TABLET (FP) PO SCH (11:10)
[2017-10-09] MEDS: oxyCODONE HCL 10 MG SUSTAINED ACTING TABLET PO SCH ×2 (11:10→22:03)
[2017-10-09] MEDS: GABAPENTIN 300 MG CAPSULE (FP) PO SCH ×2 (11:10→22:02)
[2017-10-09] MEDS: amLODIPine BESYLATE 5 MG TABLET (FP) PO SCH (11:11)
[2017-10-09] MEDS: PANTOPRAZOLE 40 MG TABLET (FP) PO SCH (11:12)
--- NOTE | 2017-10-09 11:23 | PN ---
Progress Note (short form) - Note Progress Note: Anesthesiology Post-op 66 y.o. man POD#1 s/p bilateral foot debridement under MAC. Pt. is resting comfortably in bed in NAD. He has some pain in feet but states that it is manageable. Denies n/v. VSS. Of note, H&H has dropped compared to yesterday. He is asymptomatic and there doesn't appear to be any obvious bleeding. 66 y.o. man s/p bilateral foot debridement with post-op anemia but otherwise stable post-operative course. Will defer to primary team to follow-up re. anemia and treat as needed.
--- NOTE | 2017-10-09 11:25 | PN ---
Progress Note (short form) - Note Progress Note: Podiatry F/U: Seen/evaluated at bedside NAD. Pain controlled, denies F/V/N/c/SOB/CP. Afebrile , VSS. S/p bilateral foot debridements and biopsy of heel L foot POD#1. LEO: Pedal pulses palpable, TG wnl, CFT brisk to all toes bilaterally. Bilateral plantar forefoot and plantar heel stable diabetic ulcers with granular tissue, decreased fibrotic slough, no purulence, no fluctuance, no soft tissue crepitus , no streaking cellulitis, no signs of active infection. No ischemic changes. Bogginess noted to left plantar heel. OR Cx: pending Imp: 66 year old DM M s/p bilateral debridements and bone biopsy L heel 1. IV abx per ID 2. DSD bilateral feet 3. Minimal weightbearing 4. F/u OR cultures 5. Will follow. Isaias Reynoso DPM
--- NOTE | 2017-10-09 12:49 | PN ---
Progress Note (short form) - Note Progress Note: Renal follow up for UMER on CKD Pt seen and examined at the bedside awake and alert s/p OR For debridement of b/l feet and bone biopsy feels better denies any sob, cp, abd pain, n/v/d Vital Signs Temperature 98 F 10/09/17 02:00 Pulse Rate 93 H 10/09/17 06:00 Respiratory Rate 20 10/09/17 06:00 Blood Pressure 131/72 10/09/17 06:00 O2 Sat by Pulse Oximetry (%) 99 10/08/17 20:18 Intake & Output 10/06/17 10/07/17 10/08/17 10/09/17 23:59 23:59 23:59 23:59 Intake Total 1280 1300 1950 1196 Output Total 1700 1400 30 Balance -420 -100 1920 1196 Weight 73.573 kg 73.482 kg NAD Neck supple RRR, No M/R CTA no LE edema both feet in dressings CBC, BMP 10/09/17 05:30 10/09/17 05:30 Current Medications Acetaminophen (Tylenol -) 325 mg PO Q8H PRN PRN Reason: PAIN LEVEL 4 - 6 Amlodipine Besylate (Norvasc -) 5 mg PO DAILY [facility] Last Admin: 10/09/17 11:11 Dose: 5 mg Collagenase (Santyl -) 1 applic TP DAILY [facility]; Protocol Ferrous Sulfate (Feosol -) 325 mg PO DAILY [facility] Last Admin: 10/09/17 11:10 Dose: 325 mg Gabapentin (Neurontin -) 300 mg PO BID [facility] Last Admin: 10/09/17 11:10 Dose: 300 mg Clindamycin Phosphate (Cleocin 600 Mg Premix Ivpb -) 600 mg in 50 mls @ 100 mls /hr IVPB Q8H-IV [facility]; Protocol Last Admin: 10/09/17 11:09 Dose: 100 mls/hr Piperacillin Sod/Tazobactam (Sod 2.25 gm/ Dextrose) 50 mls @ 100 mls/hr IVPB Q8H-IV [facility] Last Admin: 10/09/17 11:12 Dose: 100 mls/hr Sodium Chloride (Normal Saline -) 1,000 mls @ 83 mls/hr IV ASDIR [facility] Last Admin: 10/08/17 18:19 Dose: 83 mls/hr Insulin Aspart (Novolog Vial Sliding Scale -) 1 vial SQ ACHS [facility]; Protocol Last Admin: 10/09/17 06:02 Dose: Not Given Oxycodone HCl (Roxicodone -) 5 mg PO Q8H PRN PRN Reason: PAIN LEVEL 4 - 6 Oxycodone HCl (Oxycontin -) 20 mg PO BID [facility] Last Admin: 10/09/17 11:10 Dose: 20 mg Pantoprazole Sodium (Protonix -) 40 mg PO DAILY [facility] Last Admin: 10/09/17 11:12 Dose: 40 mg Tamsulosin HCl (Flomax -) 0.4 mg PO HS [facility] Last Admin: 10/08/17 22:49 Dose: 0.4 mg Zolpidem Tartrate (Ambien -) 5 mg PO HS PRN PRN Reason: INSOMNIA Last Admin: 10/08/17 22:49 Dose: 5 mg 66 year old gentleman with PMhx of CKD, Hyperkalemia, DM with retinopathy and peripheral neuropathy, Hypertension, Anemia requiring transfusions in the past who presented from home with history of N/V, dizziness and falls and admitted for Sepsis with possible osteomylitis with Cr of 5.8. #UMER on CKD4 (baseline Cr 2.8 as of June) #Mild Hyperkalemia #Sepsis/Possible Osteomyliits/Fever/Leukocytosis #Chronic Anemia #Hx of Hypertension #DM Renal function appears to have plateued continue IVF at the present rate continue Abx as per ID PRBC Transfusion today Continue to hold ARB trend renal function and electrolytes dose all meds for CrCl < 15 Thank you Marvin Rosales DO
--- NOTE | 2017-10-09 12:55 | PN ---
Progress Note, Physician History of Present Illness: doing well remaiang stable plan to take the patient to the or for debridement - Current Medication List Current Medications: Active Medications Acetaminophen (Tylenol -) 325 mg PO Q8H PRN PRN Reason: PAIN LEVEL 4 - 6 Amlodipine Besylate (Norvasc -) 5 mg PO DAILY [facility] Last Admin: 10/09/17 11:11 Dose: 5 mg Collagenase (Santyl -) 1 applic TP DAILY [facility]; Protocol Ferrous Sulfate (Feosol -) 325 mg PO DAILY [facility] Last Admin: 10/09/17 11:10 Dose: 325 mg Gabapentin (Neurontin -) 300 mg PO BID [facility] Last Admin: 10/09/17 11:10 Dose: 300 mg Clindamycin Phosphate (Cleocin 600 Mg Premix Ivpb -) 600 mg in 50 mls @ 100 mls /hr IVPB Q8H-IV [facility]; Protocol Last Admin: 10/09/17 11:09 Dose: 100 mls/hr Piperacillin Sod/Tazobactam (Sod 2.25 gm/ Dextrose) 50 mls @ 100 mls/hr IVPB Q8H-IV [facility] Last Admin: 10/09/17 11:12 Dose: 100 mls/hr Sodium Chloride (Normal Saline -) 1,000 mls @ 83 mls/hr IV ASDIR [facility] Last Admin: 10/08/17 18:19 Dose: 83 mls/hr Insulin Aspart (Novolog Vial Sliding Scale -) 1 vial SQ ACHS [facility]; Protocol Last Admin: 10/09/17 06:02 Dose: Not Given Oxycodone HCl (Roxicodone -) 5 mg PO Q8H PRN PRN Reason: PAIN LEVEL 4 - 6 Oxycodone HCl (Oxycontin -) 20 mg PO BID [facility] Last Admin: 10/09/17 11:10 Dose: 20 mg Pantoprazole Sodium (Protonix -) 40 mg PO DAILY [facility] Last Admin: 10/09/17 11:12 Dose: 40 mg Tamsulosin HCl (Flomax -) 0.4 mg PO HS [facility] Last Admin: 10/08/17 22:49 Dose: 0.4 mg Zolpidem Tartrate (Ambien -) 5 mg PO HS PRN PRN Reason: INSOMNIA Last Admin: 10/08/17 22:49 Dose: 5 mg - Objective Vital Signs: Vital Signs Temperature 98 F 10/09/17 02:00 Pulse Rate 93 H 10/09/17 06:00 Respiratory Rate 20 10/09/17 06:00 Blood Pressure 131/72 10/09/17 06:00 O2 Sat by Pulse Oximetry (%) 99 10/08/17 20:18 Constitutional: Yes: No Distress, Calm Cardiovascular: Yes: Regular Rate and Rhythm Respiratory: Yes: Regular, CTA Bilaterally Gastrointestinal: Yes: Normal Bowel Sounds, Soft Musculoskeletal: Yes: WNL Extremities: Yes: Other Wound/Incision: Yes: Dressing Dry and Intact Neurological: Yes: Alert, Oriented Psychiatric: Yes: Alert, Oriented Labs: CBC, BMP 10/09/17 05:30 10/09/17 05:30 INR, PTT INR 1.26 (0.82-1.09) H 10/05/17 13:57 Assessment/Plan Problem List - Problems (1) Acute on chronic kidney failure Code(s): N17.9 - ACUTE KIDNEY FAILURE, UNSPECIFIED; N18.9 - CHRONIC KIDNEY DISEASE, UNSPECIFIED Qualifiers: Chronic kidney disease stage: stage 4 (severe) (2) Anemia Code(s): D64.9 - ANEMIA, UNSPECIFIED (3) Cellulitis and abscess of foot Code(s): L03.119 - CELLULITIS OF UNSPECIFIED PART OF LIMB; L02.619 - CUTANEOUS ABSCESS OF UNSPECIFIED FOOT (4) Chronic back pain Code(s): M54.9 - DORSALGIA, UNSPECIFIED; G89.29 - OTHER CHRONIC PAIN (5) HTN (hypertension) Code(s): I10 - ESSENTIAL (PRIMARY) HYPERTENSION (6) Neuropathy Code(s): G62.9 - POLYNEUROPATHY, UNSPECIFIED (7) Sepsis Code(s): A41.9 - SEPSIS, UNSPECIFIED ORGANISM (8) T2DM (type 2 diabetes mellitus) Code(s): E11.9 - TYPE 2 DIABETES MELLITUS WITHOUT COMPLICATIONS Qualifiers: Diabetes mellitus complication status: with neurologic complications Diabetes mellitus complication detail: with polyneuropathy 9 left foot gas gangrene Assessment/Plan continue abx patient goign to the or will get cx rest as per team and podiatry
--- NOTE | 2017-10-09 12:55 | PN ---
Progress Note, Physician - Current Medication List Current Medications: Active Medications Acetaminophen (Tylenol -) 325 mg PO Q8H PRN PRN Reason: PAIN LEVEL 4 - 6 Amlodipine Besylate (Norvasc -) 5 mg PO DAILY [facility] Last Admin: 10/09/17 11:11 Dose: 5 mg Collagenase (Santyl -) 1 applic TP DAILY [facility]; Protocol Ferrous Sulfate (Feosol -) 325 mg PO DAILY [facility] Last Admin: 10/09/17 11:10 Dose: 325 mg Gabapentin (Neurontin -) 300 mg PO BID [facility] Last Admin: 10/09/17 11:10 Dose: 300 mg Clindamycin Phosphate (Cleocin 600 Mg Premix Ivpb -) 600 mg in 50 mls @ 100 mls /hr IVPB Q8H-IV [facility]; Protocol Last Admin: 10/09/17 11:09 Dose: 100 mls/hr Piperacillin Sod/Tazobactam (Sod 2.25 gm/ Dextrose) 50 mls @ 100 mls/hr IVPB Q8H-IV [facility] Last Admin: 10/09/17 11:12 Dose: 100 mls/hr Sodium Chloride (Normal Saline -) 1,000 mls @ 83 mls/hr IV ASDIR [facility] Last Admin: 10/08/17 18:19 Dose: 83 mls/hr Insulin Aspart (Novolog Vial Sliding Scale -) 1 vial SQ ACHS [facility]; Protocol Last Admin: 10/09/17 06:02 Dose: Not Given Oxycodone HCl (Roxicodone -) 5 mg PO Q8H PRN PRN Reason: PAIN LEVEL 4 - 6 Oxycodone HCl (Oxycontin -) 20 mg PO BID [facility] Last Admin: 10/09/17 11:10 Dose: 20 mg Pantoprazole Sodium (Protonix -) 40 mg PO DAILY [facility] Last Admin: 10/09/17 11:12 Dose: 40 mg Tamsulosin HCl (Flomax -) 0.4 mg PO HS [facility] Last Admin: 10/08/17 22:49 Dose: 0.4 mg Zolpidem Tartrate (Ambien -) 5 mg PO HS PRN PRN Reason: INSOMNIA Last Admin: 10/08/17 22:49 Dose: 5 mg - Objective Vital Signs: Vital Signs Temperature 98 F 10/09/17 02:00 Pulse Rate 93 H 10/09/17 06:00 Respiratory Rate 20 10/09/17 06:00 Blood Pressure 131/72 10/09/17 06:00 O2 Sat by Pulse Oximetry (%) 99 10/08/17 20:18 Labs: CBC, BMP 10/09/17 05:30 10/09/17 05:30 INR, PTT INR 1.26 (0.82-1.09) H 10/05/17 13:57
--- NOTE | 2017-10-09 14:41 | PN ---
Progress Note, Physician Chief Complaint: Mr Cahparro says he is feeling good. Denies cp, sob, n/v. - Current Medication List Current Medications: Active Medications Acetaminophen (Tylenol -) 325 mg PO Q8H PRN PRN Reason: PAIN LEVEL 4 - 6 Amlodipine Besylate (Norvasc -) 5 mg PO DAILY [facility] Last Admin: 10/09/17 11:11 Dose: 5 mg Collagenase (Santyl -) 1 applic TP DAILY [facility]; Protocol Ferrous Sulfate (Feosol -) 325 mg PO DAILY [facility] Last Admin: 10/09/17 11:10 Dose: 325 mg Gabapentin (Neurontin -) 300 mg PO BID [facility] Last Admin: 10/09/17 11:10 Dose: 300 mg Clindamycin Phosphate (Cleocin 600 Mg Premix Ivpb -) 600 mg in 50 mls @ 100 mls /hr IVPB Q8H-IV [facility]; Protocol Last Admin: 10/09/17 11:09 Dose: 100 mls/hr Piperacillin Sod/Tazobactam (Sod 2.25 gm/ Dextrose) 50 mls @ 100 mls/hr IVPB Q8H-IV [facility] Last Admin: 10/09/17 11:12 Dose: 100 mls/hr Sodium Chloride (Normal Saline -) 1,000 mls @ 83 mls/hr IV ASDIR [facility] Last Admin: 10/08/17 18:19 Dose: 83 mls/hr Insulin Aspart (Novolog Vial Sliding Scale -) 1 vial SQ ACHS [facility]; Protocol Last Admin: 10/09/17 13:21 Dose: Not Given Oxycodone HCl (Roxicodone -) 5 mg PO Q8H PRN PRN Reason: PAIN LEVEL 4 - 6 Oxycodone HCl (Oxycontin -) 20 mg PO BID [facility] Last Admin: 10/09/17 11:10 Dose: 20 mg Pantoprazole Sodium (Protonix -) 40 mg PO DAILY [facility] Last Admin: 10/09/17 11:12 Dose: 40 mg Tamsulosin HCl (Flomax -) 0.4 mg PO HS [facility] Last Admin: 10/08/17 22:49 Dose: 0.4 mg Zolpidem Tartrate (Ambien -) 5 mg PO HS PRN PRN Reason: INSOMNIA Last Admin: 10/08/17 22:49 Dose: 5 mg - Objective Vital Signs: Vital Signs Temperature 36.8 C 10/09/17 14:00 Pulse Rate 98 H 10/09/17 14:00 Respiratory Rate 20 10/09/17 06:00 Blood Pressure 135/77 10/09/17 14:00 O2 Sat by Pulse Oximetry (%) 99 10/08/17 20:18 Constitutional: Yes: Well Nourished, No Distress, Calm Cardiovascular: Yes: Regular Rate and Rhythm. No: Gallop, Murmur, Rub Respiratory: Yes: Regular, CTA Bilaterally. No: Rales, Rhonchi, Wheezes Gastrointestinal: Yes: Normal Bowel Sounds, Soft. No: Distention, Tenderness Extremities: Yes: WNL Edema: No Labs: CBC, BMP 10/09/17 05:30 10/09/17 05:30 INR, PTT INR 1.26 (0.82-1.09) H 10/05/17 13:57 Problem List - Problems (1) Cellulitis and abscess of foot Code(s): L03.119 - CELLULITIS OF UNSPECIFIED PART OF LIMB; L02.619 - CUTANEOUS ABSCESS OF UNSPECIFIED FOOT (2) Acute on chronic kidney failure Code(s): N17.9 - ACUTE KIDNEY FAILURE, UNSPECIFIED; N18.9 - CHRONIC KIDNEY DISEASE, UNSPECIFIED Qualifiers: Chronic kidney disease stage: stage 4 (severe) (3) Anemia Code(s): D64.9 - ANEMIA, UNSPECIFIED Qualifiers: Anemia type: due to chronic kidney disease Chronic kidney disease stage: stage 4 (severe) Qualified Code(s): N18.4 - Chronic kidney disease, stage 4 ( severe); D63.1 - Anemia in chronic kidney disease (4) HTN (hypertension) Code(s): I10 - ESSENTIAL (PRIMARY) HYPERTENSION (5) Neuropathy Code(s): G62.9 - POLYNEUROPATHY, UNSPECIFIED (6) Chronic back pain Code(s): M54.9 - DORSALGIA, UNSPECIFIED; G89.29 - OTHER CHRONIC PAIN (7) Sepsis Code(s): A41.9 - SEPSIS, UNSPECIFIED ORGANISM Assessment/Plan (1) Cellulitis and abscess of foot Assessment/Plan: -s/p debridement -with osteomylitis -continue IV antibiotics Code(s): L03.119 - CELLULITIS OF UNSPECIFIED PART OF LIMB; L02.619 - CUTANEOUS ABSCESS OF UNSPECIFIED FOOT (2) Acute on chronic kidney failure Assessment/Plan: -nephrology following -continue IVF -stabilizing Code(s): N17.9 - ACUTE KIDNEY FAILURE, UNSPECIFIED; N18.9 - CHRONIC KIDNEY DISEASE, UNSPECIFIED Qualifiers: Chronic kidney disease stage: stage 4 (severe) (3) Anemia Assessment/Plan: -anemia of chronic disease -transfused today Code(s): D64.9 - ANEMIA, UNSPECIFIED Qualifiers: Anemia type: due to chronic kidney disease Chronic kidney disease stage: stage 4 (severe) Qualified Code(s): N18.4 - Chronic kidney disease, stage 4 ( severe); D63.1 - Anemia in chronic kidney disease (4) HTN (hypertension) Assessment/Plan: -well controlled -continue current management Code(s): I10 - ESSENTIAL (PRIMARY) HYPERTENSION (5) Neuropathy Assessment/Plan: -continue gabapentin Code(s): G62.9 - POLYNEUROPATHY, UNSPECIFIED (6) Chronic back pain Assessment/Plan: -controlled with oxycodone Code(s): M54.9 - DORSALGIA, UNSPECIFIED; G89.29 - OTHER CHRONIC PAIN (7) Sepsis Assessment/Plan: -present on admission -resolved Code(s): A41.9 - SEPSIS, UNSPECIFIED ORGANISM
[2017-10-09] MEDS: SODIUM CHLORIDE 1,000 ML IV SCH (17:41)
[2017-10-09] MEDS: TAMSULOSIN HCL 0.4 MG CAP.ER.24H (FP) PO SCH (22:02)
[2017-10-09] MEDS: ZOLPIDEM TARTRATE 5 MG TABLET PO PRN (22:02)
[2017-10-10] MEDS ORDERED: DEXTROSE 5%-WATER - 50 ML IVPB ONE ×4 (03:41→20:02)
[2017-10-10] MEDS ORDERED: PIPERACILLIN/TAZOBACTAM 2.25 GM VIAL IVPB ONE ×4 (03:41→20:02)
[2017-10-10] MEDS: PIPERACILLIN/TAZOB 2.25 GM 2.25 GM in DEXTROSE 5%-WATER - 50 ML IVPB SCH ×3 (04:06→18:34)
[2017-10-10] MEDS: CLINDAMYCIN 600MG PREMIX IVPB 600 MG/50 ML BAG IVPB SCH ×3 (04:07→18:34)
[2017-10-10 06:51] LABS: BASO % 1.1 % (0-2.0); EOS % 3.8 % (0-4.5); HEMOGLOBIN 8.9 GM/dL (11.7-16.9); LYMPH % 25.1 % (8-40); MCH 28.3 pg (25.7-33.7); MCHC 34.2 g/dl (32.0-35.9); MEAN CELL VOLUME 82.8 fl (80-96); MEAN PLT VOLUME 7.3 fl (7.5-11.1); MONO % 9.3 % (3.8-10.2); NEUT % 60.7 % (42.8-82.8); PLATELET COUNT 328 K/MM3 (134-434); RBC 3.14 M/mm3 (4.00-5.60); RDW 14.9 % (11.9-15.9); WHITE BLOOD COUNT 7.2 K/mm3 (4.0-10.0)
[2017-10-10] MEDS: INSULIN SLIDING SCALE (NOVOLOG) 1 VIAL SQ SCH ×4 (06:58→21:15)
[2017-10-10 06:59] LABS: ANION GAP 6 (8-16); BLOOD UREA NITROGEN 27 mg/dL (7-18); CHLORIDE 106 mmol/L (98-107); CO2 25 mmol/L (21-32); CREATININE 3.4 mg/dL (0.7-1.3); GLUCOSE,RANDOM 148 mg/dL (74-106); MAGNESIUM 1.5 mg/dL (1.8-2.4); PHOSPHOROUS 4.2 mg/dL (2.5-4.9); POTASSIUM 5.1 mmol/L (3.5-5.1); SODIUM 137 mmol/L (136-145)
[2017-10-10] MEDS ORDERED: COLLAGENASE CLOSTRIDIUM HIST. 30 GRAMS TUBE TP SCH (10:00)
--- NOTE | 2017-10-10 10:54 | PN ---
Progress Note (short form) - Note Progress Note: Podiatry F/U: Seen/evaluated at bedside NAD. Pain controlled, denies F/V/N/C/SOB/CP. Afebrile , VSS. S/p bilateral diabetic foot ulcer debridement with L heel bone biopsy POD #2. LEO: Pedal pulses palpable, TG wnl, CFT brisk to all toes. There is bilateral diabetic foot ulcers, strong granular base, minimal fibrotic slough, no probing to bone, no purulent drainage, no fluctuance, no periwound erythema, no soft tissue crepitus, no streaking cellulitis, no signs of active infection. No tenderness to palpation. OR Cx: pending OR Bx: pending Imp: 66 year old DM M s/p bilateral debridement of ulcers with bone biopsy L heel POD#2 1. IV abx 2. Discussed options with patient. Patient is amenable to CARRIE placement, he lives alone and would prefer having assistance with local wound care and IV infusion. CM on board. 3. Minimal weightbearing B/L feet. 4. Appropriate glycemic management. 5. Upon discharge, will f/u with me in wound healing center 10/15. Isaias Reynoso DPM
[2017-10-10] MEDS: PANTOPRAZOLE 40 MG TABLET (FP) PO SCH (11:50)
[2017-10-10] MEDS: FERROUS SO4 325 MG TABLET (FP) PO SCH (11:50)
[2017-10-10] MEDS: oxyCODONE HCL 10 MG SUSTAINED ACTING TABLET PO SCH ×2 (11:50→21:14)
[2017-10-10] MEDS: amLODIPine BESYLATE 5 MG TABLET (FP) PO SCH (11:50)
[2017-10-10] MEDS: GABAPENTIN 300 MG CAPSULE (FP) PO SCH ×2 (11:50→21:13)
--- NOTE | 2017-10-10 11:52 | PATH ---
Surgical Pathology Report Patient Name: ARTHUR LOPEZ [facility]. Rec. #: [id number] /Age/Gender: 1950 (Age: 66) / M Account: [id number] Location: 4 W TELEMETRY U Taken: 10/08/2017 Received: 10/09/2017 Reported: 10/10/2017 Physicians: MUKESH Pedro M.D. Specimen(s) Received BX LEFT FOOT BONE Clinical History Diabetic foot ulcer bilateral, osteomyelitis left heel Final Diagnosis BONE, FOOT, LEFT, BIOPSY: BONE WITH INTRATRABECULAR REACTIVE CHANGES. NO FEATURES OF ACUTE OSTEOMYELITIS IDENTIFIED. Electronically Signed Minda Aguilar M.D. Gross Description Received in formalin labeled "left foot bone biopsy," is a 0.4 cm in length x 0.1 cm diameter torres, cylindrical portion of bone. The specimen is submitted in toto in one cassette, following decalcification. /10/09/2017 saudi/10/09/2017
[2017-10-10] MEDS ORDERED: PICC LINE 8 ML FLUSH PROTOCOL IVPUSH PRN (12:12)
--- NOTE | 2017-10-10 15:50 | PN ---
Progress Note (short form) - Note Progress Note: Renal follow up for UMER on CKD Pt seen and examined at the bedside awake and alert s/p debridement feels good denies any sob, chest pain, abd pain, N/V/D making urine w/o difficulty on IVF Vital Signs Temperature 98.6 F 10/10/17 02:00 Pulse Rate 99 H 10/10/17 09:42 Respiratory Rate 18 10/10/17 09:42 Blood Pressure 149/96 10/10/17 09:42 O2 Sat by Pulse Oximetry (%) 98 10/09/17 20:37 Intake & Output 10/07/17 10/08/17 10/09/17 10/10/17 23:59 23:59 23:59 23:59 Intake Total 1300 1950 2035 640 Output Total 1400 30 Balance -100 1919 2035 640 Weight 73.482 kg NAD RRR, No M/R CTA no LE edema both feet in dressings CBC, BMP 10/10/17 05:30 10/10/17 05:30 Current Medications Acetaminophen (Tylenol -) 325 mg PO Q8H PRN PRN Reason: PAIN LEVEL 4 - 6 Amlodipine Besylate (Norvasc -) 5 mg PO DAILY [facility] Last Admin: 10/10/17 11:50 Dose: 5 mg Collagenase (Santyl -) 1 applic TP DAILY [facility]; Protocol Last Admin: 10/10/17 11:50 Dose: 1 applic Ferrous Sulfate (Feosol -) 325 mg PO DAILY [facility] Last Admin: 10/10/17 11:50 Dose: 325 mg Gabapentin (Neurontin -) 300 mg PO BID [facility] Last Admin: 10/10/17 11:50 Dose: 300 mg IV Flush (Picc Line Flush) 8 ml IVPUSH PRN PRN PRN Reason: Protocol Clindamycin Phosphate (Cleocin 600 Mg Premix Ivpb -) 600 mg in 50 mls @ 100 mls /hr IVPB Q8H-IV [facility]; Protocol Last Admin: 10/10/17 11:48 Dose: 100 mls/hr Piperacillin Sod/Tazobactam (Sod 2.25 gm/ Dextrose) 50 mls @ 100 mls/hr IVPB Q8H-IV [facility] Last Admin: 10/10/17 11:49 Dose: 100 mls/hr Sodium Chloride (Normal Saline -) 1,000 mls @ 83 mls/hr IV ASDIR [facility] Last Admin: 10/09/17 17:41 Dose: Not Given Insulin Aspart (Novolog Vial Sliding Scale -) 1 vial SQ ACHS [facility]; Protocol Last Admin: 10/10/17 06:58 Dose: 2 units Oxycodone HCl (Roxicodone -) 5 mg PO Q8H PRN PRN Reason: PAIN LEVEL 4 - 6 Oxycodone HCl (Oxycontin -) 20 mg PO BID [facility] Last Admin: 10/10/17 11:50 Dose: 20 mg Pantoprazole Sodium (Protonix -) 40 mg PO DAILY [facility] Last Admin: 10/10/17 11:50 Dose: 40 mg Tamsulosin HCl (Flomax -) 0.4 mg PO HS [facility] Last Admin: 10/09/17 22:02 Dose: 0.4 mg Zolpidem Tartrate (Ambien -) 5 mg PO HS PRN PRN Reason: INSOMNIA Last Admin: 10/09/17 22:02 Dose: 5 mg 66 year old gentleman with PMhx of CKD, Hyperkalemia, DM with retinopathy and peripheral neuropathy, Hypertension, Anemia requiring transfusions in the past who presented from home with history of N/V, dizziness and falls and admitted for Sepsis with possible osteomylitis with Cr of 5.8. #UMER on CKD4 (baseline Cr 2.8 as of June) #Sepsis/Possible Osteomyliits/Fever/Leukocytosis #Chronic Anemia #Hx of Hypertension #DM Renal function improved from admission and now appears stable will d/c IVF as pt is tolerating oral diet Dose all meds for CrCL < 15 continue abx as per ID Hgb improved s/p transfusion, level < 10 will give aranesp weekly Thank you Marvin Rosales DO
--- NOTE | 2017-10-10 16:24 | PN ---
Progress Note, Physician History of Present Illness: patient post op doing well no complaints all the cx reports noted - Current Medication List Current Medications: Active Medications Acetaminophen (Tylenol -) 325 mg PO Q8H PRN PRN Reason: PAIN LEVEL 4 - 6 Amlodipine Besylate (Norvasc -) 5 mg PO DAILY [facility] Last Admin: 10/10/17 11:50 Dose: 5 mg Collagenase (Santyl -) 1 applic TP DAILY [facility]; Protocol Last Admin: 10/10/17 11:50 Dose: 1 applic Darbepoetin Chava (Aranesp -) 25 mcg SQ Fr@1000 [facility] Ferrous Sulfate (Feosol -) 325 mg PO DAILY [facility] Last Admin: 10/10/17 11:50 Dose: 325 mg Gabapentin (Neurontin -) 300 mg PO BID [facility] Last Admin: 10/10/17 11:50 Dose: 300 mg IV Flush (Picc Line Flush) 8 ml IVPUSH PRN PRN PRN Reason: Protocol Clindamycin Phosphate (Cleocin 600 Mg Premix Ivpb -) 600 mg in 50 mls @ 100 mls /hr IVPB Q8H-IV [facility]; Protocol Last Admin: 10/10/17 11:48 Dose: 100 mls/hr Piperacillin Sod/Tazobactam (Sod 2.25 gm/ Dextrose) 50 mls @ 100 mls/hr IVPB Q8H-IV [facility] Last Admin: 10/10/17 11:49 Dose: 100 mls/hr Insulin Aspart (Novolog Vial Sliding Scale -) 1 vial SQ ACHS [facility]; Protocol Last Admin: 10/10/17 06:58 Dose: 2 units Oxycodone HCl (Roxicodone -) 5 mg PO Q8H PRN PRN Reason: PAIN LEVEL 4 - 6 Oxycodone HCl (Oxycontin -) 20 mg PO BID [facility] Last Admin: 10/10/17 11:50 Dose: 20 mg Pantoprazole Sodium (Protonix -) 40 mg PO DAILY [facility] Last Admin: 10/10/17 11:50 Dose: 40 mg Tamsulosin HCl (Flomax -) 0.4 mg PO HS [facility] Last Admin: 10/09/17 22:02 Dose: 0.4 mg Zolpidem Tartrate (Ambien -) 5 mg PO HS PRN PRN Reason: INSOMNIA Last Admin: 10/09/17 22:02 Dose: 5 mg - Objective Vital Signs: Vital Signs Temperature 98.6 F 10/10/17 02:00 Pulse Rate 99 H 10/10/17 09:42 Respiratory Rate 18 10/10/17 09:42 Blood Pressure 149/96 10/10/17 09:42 O2 Sat by Pulse Oximetry (%) 98 10/09/17 20:37 Constitutional: Yes: No Distress, Calm Cardiovascular: Yes: Regular Rate and Rhythm Respiratory: Yes: Regular, CTA Bilaterally Gastrointestinal: Yes: Normal Bowel Sounds, Soft Musculoskeletal: Yes: WNL Extremities: Yes: Other Wound/Incision: Yes: Dressing Dry and Intact Neurological: Yes: Alert, Oriented Psychiatric: Yes: Alert, Oriented Labs: CBC, BMP 10/10/17 05:30 10/10/17 05:30 INR, PTT INR 1.26 (0.82-1.09) H 10/05/17 13:57 Assessment/Plan Problem List - Problems (1) Acute on chronic kidney failure Code(s): N17.9 - ACUTE KIDNEY FAILURE, UNSPECIFIED; N18.9 - CHRONIC KIDNEY DISEASE, UNSPECIFIED Qualifiers: Chronic kidney disease stage: stage 4 (severe) (2) Anemia Code(s): D64.9 - ANEMIA, UNSPECIFIED (3) Cellulitis and abscess of foot Code(s): L03.119 - CELLULITIS OF UNSPECIFIED PART OF LIMB; L02.619 - CUTANEOUS ABSCESS OF UNSPECIFIED FOOT (4) Chronic back pain Code(s): M54.9 - DORSALGIA, UNSPECIFIED; G89.29 - OTHER CHRONIC PAIN (5) HTN (hypertension) Code(s): I10 - ESSENTIAL (PRIMARY) HYPERTENSION (6) Neuropathy Code(s): G62.9 - POLYNEUROPATHY, UNSPECIFIED (7) Sepsis Code(s): A41.9 - SEPSIS, UNSPECIFIED ORGANISM (8) T2DM (type 2 diabetes mellitus) Code(s): E11.9 - TYPE 2 DIABETES MELLITUS WITHOUT COMPLICATIONS Qualifiers: Diabetes mellitus complication status: with neurologic complications Diabetes mellitus complication detail: with polyneuropathy 9 left foot gas gangrene 10 osteo of the left foot Assessment/Plan continue abx cx report noted patient needs to be on zosyn 2.25 every 8 hourly for 5 more weeks follow cbc and bmp and esr and crp wound care rest as per the team
--- NOTE | 2017-10-10 16:28 | PN ---
Progress Note, Physician Chief Complaint: Mr Chaparro says he is feeling good. Denies cp, sob, n/v. - Current Medication List Current Medications: Active Medications Acetaminophen (Tylenol -) 325 mg PO Q8H PRN PRN Reason: PAIN LEVEL 4 - 6 Amlodipine Besylate (Norvasc -) 5 mg PO DAILY [facility] Last Admin: 10/10/17 11:50 Dose: 5 mg Collagenase (Santyl -) 1 applic TP DAILY [facility]; Protocol Last Admin: 10/10/17 11:50 Dose: 1 applic Darbepoetin Chava (Aranesp -) 25 mcg SQ Fr@1000 [facility] Ferrous Sulfate (Feosol -) 325 mg PO DAILY [facility] Last Admin: 10/10/17 11:50 Dose: 325 mg Gabapentin (Neurontin -) 300 mg PO BID [facility] Last Admin: 10/10/17 11:50 Dose: 300 mg IV Flush (Picc Line Flush) 8 ml IVPUSH PRN PRN PRN Reason: Protocol Clindamycin Phosphate (Cleocin 600 Mg Premix Ivpb -) 600 mg in 50 mls @ 100 mls /hr IVPB Q8H-IV [facility]; Protocol Last Admin: 10/10/17 11:48 Dose: 100 mls/hr Piperacillin Sod/Tazobactam (Sod 2.25 gm/ Dextrose) 50 mls @ 100 mls/hr IVPB Q8H-IV [facility] Last Admin: 10/10/17 11:49 Dose: 100 mls/hr Insulin Aspart (Novolog Vial Sliding Scale -) 1 vial SQ ACHS [facility]; Protocol Last Admin: 10/10/17 06:58 Dose: 2 units Oxycodone HCl (Roxicodone -) 5 mg PO Q8H PRN PRN Reason: PAIN LEVEL 4 - 6 Oxycodone HCl (Oxycontin -) 20 mg PO BID [facility] Last Admin: 10/10/17 11:50 Dose: 20 mg Pantoprazole Sodium (Protonix -) 40 mg PO DAILY [facility] Last Admin: 10/10/17 11:50 Dose: 40 mg Tamsulosin HCl (Flomax -) 0.4 mg PO HS [facility] Last Admin: 10/09/17 22:02 Dose: 0.4 mg Zolpidem Tartrate (Ambien -) 5 mg PO HS PRN PRN Reason: INSOMNIA Last Admin: 10/09/17 22:02 Dose: 5 mg - Objective Vital Signs: Vital Signs Temperature 37.0 C 10/10/17 02:00 Pulse Rate 99 H 10/10/17 09:42 Respiratory Rate 18 10/10/17 09:42 Blood Pressure 149/96 10/10/17 09:42 O2 Sat by Pulse Oximetry (%) 98 10/09/17 20:37 Constitutional: Yes: Well Nourished, No Distress, Calm Cardiovascular: Yes: Regular Rate and Rhythm. No: Gallop, Murmur, Rub Respiratory: Yes: Regular, CTA Bilaterally. No: Rales, Rhonchi, Wheezes Gastrointestinal: Yes: Normal Bowel Sounds, Soft. No: Distention, Palpable Mass Extremities: Yes: Other (wrapped) Edema: No Labs: CBC, BMP 10/10/17 05:30 10/10/17 05:30 INR, PTT INR 1.26 (0.82-1.09) H 10/05/17 13:57 Problem List - Problems (1) Cellulitis and abscess of foot Code(s): L03.119 - CELLULITIS OF UNSPECIFIED PART OF LIMB; L02.619 - CUTANEOUS ABSCESS OF UNSPECIFIED FOOT (2) Acute on chronic kidney failure Code(s): N17.9 - ACUTE KIDNEY FAILURE, UNSPECIFIED; N18.9 - CHRONIC KIDNEY DISEASE, UNSPECIFIED Qualifiers: Chronic kidney disease stage: stage 4 (severe) (3) Anemia Code(s): D64.9 - ANEMIA, UNSPECIFIED Qualifiers: Anemia type: due to chronic kidney disease Chronic kidney disease stage: stage 4 (severe) Qualified Code(s): N18.4 - Chronic kidney disease, stage 4 ( severe); D63.1 - Anemia in chronic kidney disease (4) HTN (hypertension) Code(s): I10 - ESSENTIAL (PRIMARY) HYPERTENSION (5) Neuropathy Code(s): G62.9 - POLYNEUROPATHY, UNSPECIFIED (6) Chronic back pain Code(s): M54.9 - DORSALGIA, UNSPECIFIED; G89.29 - OTHER CHRONIC PAIN (7) Sepsis Code(s): A41.9 - SEPSIS, UNSPECIFIED ORGANISM Assessment/Plan (1) Cellulitis and abscess of foot Assessment/Plan: -s/p debridement -will need 5 weeks antibiotics -tunnel catheter placement -will d/w CM/SW about outpatient zosyn Code(s): L03.119 - CELLULITIS OF UNSPECIFIED PART OF LIMB; L02.619 - CUTANEOUS ABSCESS OF UNSPECIFIED FOOT (2) Acute on chronic kidney failure Assessment/Plan: -nephrology following -stable Code(s): N17.9 - ACUTE KIDNEY FAILURE, UNSPECIFIED; N18.9 - CHRONIC KIDNEY DISEASE, UNSPECIFIED Qualifiers: Chronic kidney disease stage: stage 4 (severe) (3) Anemia Assessment/Plan: -anemia of chronic disease -improved with transfusion Code(s): D64.9 - ANEMIA, UNSPECIFIED Qualifiers: Anemia type: due to chronic kidney disease Chronic kidney disease stage: stage 4 (severe) Qualified Code(s): N18.4 - Chronic kidney disease, stage 4 ( severe); D63.1 - Anemia in chronic kidney disease (4) HTN (hypertension) Assessment/Plan: -well controlled -continue current management Code(s): I10 - ESSENTIAL (PRIMARY) HYPERTENSION (5) Neuropathy Assessment/Plan: -continue gabapentin Code(s): G62.9 - POLYNEUROPATHY, UNSPECIFIED (6) Chronic back pain Assessment/Plan: -controlled with oxycodone Code(s): M54.9 - DORSALGIA, UNSPECIFIED; G89.29 - OTHER CHRONIC PAIN (7) Sepsis Assessment/Plan: -present on admission -resolved Code(s): A41.9 - SEPSIS, UNSPECIFIED ORGANISM
[2017-10-10] MEDS: TAMSULOSIN HCL 0.4 MG CAP.ER.24H (FP) PO SCH (21:13)
[2017-10-11 00:09] VITALS: BP 123/92; PULSE 97; TEMP 99
[2017-10-11] MEDS ORDERED: Darbepoetin Alfa in Polysorbat 25 MCG/0.4 ML DISP.SYRIN SQ SCH (10:00)
== END 2017-10-10 22:05 | DRG 853 ==
LOC: JER 12:46 → JERBED 17:23 → OBSVTOIN 17:26 → J4W 22:15
PROVIDERS: ADMIT Internal Medicine; ATTEND Internal Medicine
PROC: 0JBQ0ZZ Excision of Right Foot Subcutaneous Tissue and Fascia, Open Approach (ICD-10-PCS; 2017-10-08)
PROC: 0QBM0ZX Excision of Left Tarsal, Open Approach, Diagnostic (ICD-10-PCS; 2017-10-08)
PROC: 0JBR0ZZ Excision of Left Foot Subcutaneous Tissue and Fascia, Open Approach (ICD-10-PCS; principal; 2017-10-08 14:30)
PROC: 30233N1 Transfusion of Nonautologous Red Blood Cells into Peripheral Vein, Percutaneous Approach (ICD-10-PCS; 2017-10-09)
DX: A41.9 Sepsis, unspecified organism (principal); A48.0 Gas gangrene; N17.9 Acute kidney failure, unspecified; N18.4 Chronic kidney disease, stage 4 (severe); L03.119 Cellulitis of unspecified part of limb; L02.619 Cutaneous abscess of unspecified foot; L97.518 Non-pressure chronic ulcer of other part of right foot with other specified severity; L97.528 Non-pressure chronic ulcer of other part of left foot with other specified severity; M86.8X7 Other osteomyelitis, ankle and foot; E11.52 Type 2 diabetes mellitus with diabetic peripheral angiopathy with gangrene; D62 Acute posthemorrhagic anemia; E13.621 Other specified diabetes mellitus with foot ulcer; M54.5 Low back pain; E87.5 Hyperkalemia; E11.319 Type 2 diabetes mellitus with unspecified diabetic retinopathy without macular edema; D64.9 Anemia, unspecified; I12.9 Hypertensive chronic kidney disease with stage 1 through stage 4 chronic kidney disease, or unspecified chronic kidney disease; E11.22 Type 2 diabetes mellitus with diabetic chronic kidney disease; D72.829 Elevated white blood cell count, unspecified; E11.40 Type 2 diabetes mellitus with diabetic neuropathy, unspecified; E11.65 Type 2 diabetes mellitus with hyperglycemia; R00.0 Tachycardia, unspecified; I95.9 Hypotension, unspecified; E11.621 Type 2 diabetes mellitus with foot ulcer; D63.8 Anemia in other chronic diseases classified elsewhere
CPT/HCPCS: 36415; 36430; 36558; 71045-TC-FY; 73630-TC-LT; 73630-TC-RT-FY; 73718-LT; 80048; 80053; 81003; 81015; 82550; 82553; 82570; 82607; 82728; 82746; 82803; 82962; 83036; 83540; 83550; 83605; 83735; 84100; 84156; 84300; 84484; 85025; 85610; 85651; 85730; 86140; 86850; 86900; 86901; 86922; 87040; 87070; 87086; 87186; 87205; 88305-TC; 93005; 93010; 99285-25; C1751; G0378; G0480; J0131; J7030; P9038; P9058

== ENCOUNTER → 2017-11-20 | Day surgery (SDC) | payer OTHER | END | disposition home or self-care (01) | LOC: JRADIR 09:17 | PROVIDERS: ATTEND Specialist | PROC: 02PY03Z Removal of Infusion Device from Great Vessel, Open Approach (ICD-10-PCS; principal; 2017-11-20) | DX: Z45.2 Encounter for adjustment and management of vascular access device (principal) | CPT/HCPCS: 36589 ==

== ENCOUNTER 2018-01-15 06:41 | Day surgery (SDC) | payer OTHER ==
[2018-01-07 08:05] VITALS: BMI 23.3
[~2018-01-15 06:41] MED LIST changes: -PIPERACILLIN/TAZOB 2.25 GM 2.25 GM in DEXTROSE 5%-WATER - 50 ML IVPB SCH; +POVIDONE-IODINE OINTMENT 10% - 28.4 GM TUBE TP ONE
[2018-01-15] MEDS ORDERED: LIDOCAINE HCL 1%, 10 MG/ML (20ML VIAL) ONE (07:11)
[2018-01-15] MEDS ORDERED: HEPARIN NA (PORCINE) 5,000 UNITS/ML 1ML VIAL ONE ×3 (07:11→12:39)
[2018-01-15] MEDS ORDERED: PAPAVERINE HCL 30 MG/1 ML 10 ML VIAL NR ONE (07:14)
[2018-01-15] MEDS ORDERED: POVIDONE-IODINE OINTMENT 10% - 28.4 GM TUBE ONE (07:18)
[2018-01-15] MEDS ORDERED: MIDAZOLAM HCL 2 MG/2 ML SINGLE DOSE VIAL ONE ×3 (07:52→11:58)
--- NOTE | 2018-01-15 08:09 | HP ---
History & Physical Update - History History: No Change - Physical Physical: No Change - Assessment Assessment: No Change - Plan Plan: No Change (Full H&P in chart from 12/27/[address] Paz)
[2018-01-15] MEDS ORDERED: PROPOFOL 20 ML ONE ×2 (08:29→08:31)
[2018-01-15] MEDS ORDERED: LIDOCAINE HCL 1%, 10 MG/ML (20ML VIAL) INF ONE (08:38)
[2018-01-15] MEDS ORDERED: HEPARIN NA (PORCINE) 5,000 UNITS/ML 1ML VIAL SQ ONE ×2 (08:40→12:12)
[2018-01-15] MEDS ORDERED: POVIDONE-IODINE OINTMENT 10% - 28.4 GM TUBE TP ONE (09:38)
[2018-01-15] MEDS ORDERED: ONDANSETRON 4 MG/2 ML VIAL IVPUSH PRN (09:46)
[2018-01-15] MEDS ORDERED: oxyCODONE HCL 5 MG TABLET PO PRN (09:46)
--- NOTE | 2018-01-15 09:55 | OP ---
Operative Note - Note: Operative Date: 01/15/18 Pre-Operative Diagnosis: Renal failure Operation: Creation AV fistula right arm Findings: Right cephalic vein 4 mm, radial artery 3 mm Post-Operative Diagnosis: Same as Pre-op Surgeon: Vlad Hernández Relief Driller: Nemesio Bonner Anesthesiologist/SILK SPREADER: Marcel Choi Anesthesia: Fractional Estimated Blood Loss (mls): 10
[2018-01-15] MEDS ORDERED: SODIUM CHLORIDE 1,000 ML IV SCH (10:00)
[2018-01-15] MEDS ORDERED: ASPIRIN 81 MG CHEWABLE TABLETS PO SCH (10:30)
--- NOTE | 2018-01-15 11:21 | SURG ---
Surgery It Network Architect Note It Network Architect: Nemesio Bonner PA-C Date of Service: 01/15/18 Diagnosis: Renal failure Procedure: Right arm AV fistula creation I was present for the entirety of the operative procedure. For further detail, please refer to operative report.
--- NOTE | 2018-01-15 11:27 | OP ---
DATE OF OPERATION: 01/15/2018 SURGEON: Vlad Edward MD ASSOCIATE ACCOUNT DIRECTOR: DEE Garcia PROCEDURE: Creation arteriovenous fistula, right arm. PREOPERATIVE DIAGNOSIS: Renal failure. POSTOPERATIVE DIAGNOSIS: Renal failure. ANESTHESIA: Fractional. ANESTHESIOLOGIST: Marcel Choi MD OPERATIVE FINDINGS: The right cephalic vein and radial artery were patent above the wrist with adequate diameter for AV fistula. OPERATIVE PROCEDURE: Following routine patient identification with side and site verification, intravenous sedation was established. The right arm was prepped with ChloraPrep. Time-out was performed. The vein was mobilized from its bed. Side branches were ligated and divided. The vein was ligated distally and incised. It was distended with heparin and papaverine solution. No. 5 and No. 8 feeding tubes were passed proximally without resistance. The vein was filled with heparin solution and covered with moist gauze. A parallel incision was made orer the radial pulse at the same level and carried through subcutaneous tissues with cautery. The radial artery was exposed and secured proximally and distally with vessel loops. Side branches were ligated with silk ties and divided. The vein was then passed through a short subcutaneous tunnel to lie next to the artery with care not to twist it. The artery was occluded with vessels loops and opened on exposed surface with a 6-mm arteriotomy. The end of the vein was spatulated, and anastomosed to the side of the artery with running sutures of 6-0 Prolene. Prior to the completion of the suture line, the artery was allowed to back-bleed and flush, and the vein was flushed with heparin solution. The suture line was completed, and all vessels were released. There was good flow through the anastomosis with a palpable thrill in the proximal vein. Wounds were closed with interrupted suture of 3-0 Vicryl. Following closure, the vein was checked again, and no flow was felt in the vein proximal to the incision. It was checked with a Doppler, and no signal was heard. The incision over the vein was then reopened, and the vein inspected. There was an additional side branch tethering the vein, which was divided with silk ties. A larger side branch in the distal vein was then opened and the vein was flushed with heparin solution. A No. 5 feeding tube was passed proximally without resistance, and a No. 3 Isra catheter was passed and withdrawn with no retrieval of any thrombus. The side branch was clipped, and the vein was opened, and now, there was a good pulse in the vein all the way up to the elbow. The wound was reclosed with 3-0 Vicryl and skin hua, and the patient was taken to the recovery room in stable condition. VLAD EDWARD M.D. SALAZAR/[id number]
[2018-01-15] MEDS ORDERED: LIDOCAINE HCL 1%, 10 MG/ML (20ML VIAL) NR ONE (12:07)
[2018-01-15] MEDS ORDERED: CLOPIDOGREL BISULFATE 300 MG TABLET PO ONE (13:03)
--- NOTE | 2018-01-15 13:08 | OP ---
Operative Note - Note: Operative Date: 01/15/18 Pre-Operative Diagnosis: Post-operative thrombosis of AV fistula Operation: Exploration of AV fistula, thrombectomy, venogram and venoplasty Findings: Fresh clot in distal AV fistula. No evidence for luminal obstruction. Slight narrowing of outflow cephalic vein at elbow. Surgeon: Vlad Hernández Anesthesiologist/TEAM DRIVER: Marcel Choi Anesthesia: Fractional Estimated Blood Loss (mls): 50 Operative Report Dictated: Yes
[2018-01-15] MEDS ORDERED: CLOPIDOGREL BISULFATE 75 MG TABLET (FP) ONE (13:15)
--- NOTE | 2018-01-15 13:51 | OP ---
DATE OF OPERATION: 01/15/2018 SURGEON: Vlad Edward MD PROCEDURE: Exploration of right arm arteriovenous fistula with thrombectomy, venogram and venoplasty. PREOPERATIVE DIAGNOSIS: Postoperative thrombosis of right arm arteriovenous fistula. POSTOPERATIVE DIAGNOSIS: Postoperative thrombosis of right arm arteriovenous fistula. ANESTHESIA: Fractional. ANESTHESIOLOGIST: Marcel Choi MD OPERATIVE FINDINGS: The newly constructed right radiocephalic fistula was thrombosed. There was clot extending from the arterial anastomosis to the area of dissected vein. After thrombectomy, there was good arterial inflow. Venography revealed no obstructing lesion within the vein. There was approximately 40% narrowing of the cephalic vein at the elbow. There was no evidence of inflow stenosis on angiography. OPERATIVE PROCEDURE: Following routine patient identification, with side and site verification, intravenous sedation was established. A time-out was performed. The right arm was prepped with ChloraPrep. The hua were removed from the vein incision at the wrist. The wound was opened and the vein encircled with vessel loops. A distal side branch was opened by removal of the clips. A number 4 Medina catheter was passed proximally in the vein and withdrawn, with removal of thrombus and return of venous back-bleeding. This flushed easily with saline solution. An Angiocath was inserted and venography was performed with dilute contrast. No intraluminal defect was seen. A portion of the vein at the level of the elbow appeared mildly narrowed, and a 5-mm angioplasty balloon was advanced over a wire to this level and used to dilate that section. The vein was again filled with saline solution. The patient was systemically heparinized as well. The clot from the arterial end of the fistula was then removed with a clamp and a Isra catheter, with lutheran of strong arterial inflow. An angiogram was obtained retrograde by injection through the side branch and proximal compression, and this showed no residual thrombus and patent anastomosis. A completion angiogram was performed, again showing good flow up the arm through the vein. The side branch was clipped. The wound was closed with Vicryl and hua, and the patient was taken back to the recovery room in stable condition. VLAD EDWARD M.D. [id number]
[2018-01-15 14:06] VITALS: TEMP 97.6
[2018-01-15 15:10] VITALS: BP 110/68; PULSE 100
== END 2018-01-15 15:00 | disposition home or self-care (01) ==
LOC: JASU-SURG 06:41
PROVIDERS: ATTEND Surgery
PROC: 031B0ZF Bypass Right Radial Artery to Lower Arm Vein, Open Approach (ICD-10-PCS; principal; 2018-01-15 08:00)
DX: I12.0 Hypertensive chronic kidney disease with stage 5 chronic kidney disease or end stage renal disease (principal); E11.22 Type 2 diabetes mellitus with diabetic chronic kidney disease; N18.6 End stage renal disease; Z79.84 Long term (current) use of oral hypoglycemic drugs
CPT/HCPCS: 82962; 94760; J1644

== ENCOUNTER 2018-05-26 06:34 | Day surgery (SDC) | payer OTHER ==
[2018-05-23 11:30] VITALS: BMI 23.3
[2018-05-26 07:26] VITALS: TEMP 98
[2018-05-26] MEDS ORDERED: HEPARIN NA (PORCINE) 5,000 UNITS/ML 1ML VIAL ONE (07:44)
[2018-05-26] MEDS ORDERED: POVIDONE-IODINE OINTMENT 10% - 28.4 GM TUBE ONE (07:44)
[2018-05-26] MEDS ORDERED: PAPAVERINE HCL 30 MG/1 ML 10 ML VIAL NR ONE (07:44)
[2018-05-26] MEDS ORDERED: LIDOCAINE HCL 1%, 10 MG/ML (20ML VIAL) ONE ×2 (07:44→08:23)
[2018-05-26] MEDS ORDERED: LIDOCAINE HCL 1%, 10 MG/ML (50 mL VIAL) IJ ONE ×2 (08:24)
--- NOTE | 2018-05-26 08:48 | HP ---
[facility]ellite [facility] - Chief Complaint History of Present Illness: 67 year old man with CKD. Right radial artery AVF created and patient has mild steal syndrome with numbness of thumb and index fingers. History Source: Patient Limitations to Obtaining History: No Limitations - Past Medical History Allergies/Adverse Reactions: Allergies Allergy/AdvReac Type Severity Reaction Status Date / Time No Known Allergies Allergy Verified 05/26/18 07:27 BYPRODUCT ENGINEER: Yes: Peripheral Neuropathy (from diabetes) Cardiovascular: Yes: HTN Gastrointestinal: Yes: Diverticulosis, GERD (with Agarwal's esophagus), Other ( hyperplastic colon polyps remoevd 2012) Renal/: Yes: Renal Failure, BPH Heme/Onc: Yes: Anemia (of chronic disease (renal/ diabetes)) Musculoskeletal: Yes: Chronic low back pain (recent lumbar microdiscectomy) Endocrine: Yes: Diabetes Mellitus Additional Medical History: right retinal detachment. diabetic retinopathy treated by Dr Lovett - Current Medications Current Medications: Home Medications Medication Instructions Recorded Gabapentin 100 mg PO HS 10/05/17 Glipizide [Glipizide ER] 5 mg PO DAILY 10/05/17 Tamsulosin HCl 0.4 mg PO HS 10/05/17 oxyCODONE SR [Oxycontin] 40 mg PO BID 10/05/17 Latanoprost/Pf [Latanoprost 0.005% 1 drop OU HS 10/26/17 Eye Drop] Timolol 0.25% [Timoptic 0.25%] 1 drop OU BID 10/26/17 Amlodipine Besylate [Norvasc -] 5 mg PO HS 01/07/18 Ascorbic Acid [Vitamin C -] 500 mg PO DAILY 01/07/18 Cholecalciferol (Vitamin D3) 2,000 units PO DAILY 01/07/18 [Vitamin D3] Cyanocobalamin (Vitamin B-12) 5,000 mg PO DAILY 01/07/18 [Vitamin B12] Ferrous Sulfate [Feosol] 325 mg PO BID 01/07/18 Valsartan 160 mg PO DAILY 01/15/18 Satellite Physical Exam - Physical Examination Vital Signs: Vital Signs Period Temp Pulse Resp BP Sys/Dudley Pulse Ox Last 24 Hr 98.0 F 74 20 131/72 97 General Appearance: Well Nourished ENT: Clear Lung: Clear to auscultation Heart: Regular rate & rhythm Abdomen: Soft Extremities: No edema, No cyanosis, Other (Right hand warm) Neurological: Numbness (Right thumb) Satellite Impression/Plan - Impression/Plan Impression: Radial artery steal. Operative Procedure: Ligation right radial artery Date to be Performed: 05/26/18
--- NOTE | 2018-05-26 08:49 | OP ---
Operative Note - Note: Operative Date: 05/26/18 Pre-Operative Diagnosis: Right radial artery steal Operation: Ligation right radial artery Findings: Patent radial and ulnar arteries with reversal of flow in distal radial artery to AV fistula Post-Operative Diagnosis: Same as Pre-op Surgeon: Vlad Hernández Anesthesia: Local
[2018-05-26] MEDS ORDERED: ACETAMINOPHEN 325 MG TABLET (FP) PO PRN (08:50)
[2018-05-26 11:44] VITALS: BP 126/74; PULSE 80
--- NOTE | 2018-05-27 00:02 | OP ---
DATE OF OPERATION: 05/26/2018 SURGEON: Vlad Hernández M.D. PROCEDURE: Ligation of right radial artery. PREOPERATIVE DIAGNOSIS: Radial artery steal syndrome. POSTOPERATIVE DIAGNOSIS: Radial artery steal syndrome. ANESTHESIA: Local. FINDINGS: Patient with a right radial artery to cephalic vein AV fistula, has symptoms of steal with numbness in the right thumb and first finger. Preoperative imaging documented reverse flow in the distal right radial artery with an intact ulnar artery in palmar arch . OPERATIVE PROCEDURE: Patient was brought to the operating room. Timeout was performed. The right upper extremity and hand were prepped with ChloraPrep. 1% lidocaine was infiltrated over the radial artery pulse distal to the AV fistula. A longitudinal incision was made and carried into the subcutaneous tissues using cautery for hemostasis. The radial artery was doubly ligated with 2-0 silk ties. The wound was closed with interrupted suture of 3-0 Vicryl and subcuticular suture of 4-0 Biosyn. Sterile dressing was applied. Patient was taken to the [facility] in stable condition . Cyndee VELIZ/[id number] MTDD
== END 2018-05-26 09:30 | disposition home or self-care (01) ==
LOC: JASU-SURG 06:34
PROVIDERS: ATTEND Surgery
PROC: 03LB0ZZ Occlusion of Right Radial Artery, Open Approach (ICD-10-PCS; principal; 2018-05-26 08:00)
DX: T82.898A Other specified complication of vascular prosthetic devices, implants and grafts, initial encounter (principal); I12.0 Hypertensive chronic kidney disease with stage 5 chronic kidney disease or end stage renal disease; E11.22 Type 2 diabetes mellitus with diabetic chronic kidney disease; N18.6 End stage renal disease; Z99.2 Dependence on renal dialysis; Z79.4 Long term (current) use of insulin
CPT/HCPCS: 82962; J1644

== ENCOUNTER 2019-03-16 09:14 | Day surgery (SDC) | payer OTHER ==
[2019-03-12 10:51] VITALS: BMI 22.7
[2019-03-16] MEDS ORDERED: LIDOCAINE HCL 1%, 10 MG/ML (20ML VIAL) ONE (11:32)
[2019-03-16] MEDS ORDERED: LIDOCAINE HCL 2% (20ML MULTI-DOSE VIAL) ONE (11:32)
[2019-03-16] MEDS ORDERED: MIDAZOLAM HCL 2 MG/2 ML SINGLE DOSE VIAL ONE ×2 (12:10)
[2019-03-16] MEDS ORDERED: BUPIVACAINE HCL/PF 0.5% (5 MG/ML) 30 ML VIAL IJ ONE ×3 (12:18→12:35)
[2019-03-16] MEDS ORDERED: LIDOCAINE 1%-EPI 1:100,000 30 ML MDV IJ ONE ×2 (12:18→12:20)
[2019-03-16] MEDS ORDERED: PROPOFOL 20 ML ONE (12:24)
[2019-03-16] MEDS ORDERED: ROCURONIUM BROMIDE 50 MG/5 ML SYRINGE ONE (12:25)
[2019-03-16] MEDS ORDERED: LIDOCAINE 1%/EPI 1:100000 (20 ML MULTI DOSE VIAL) INF ONE ×2 (12:35)
--- NOTE | 2019-03-16 14:51 | OP ---
DATE OF ADMISSION: 03/16/2019 SURGEON: Ritesh Peguero DPM PREOPERATIVE DIAGNOSES: 1. Osteomyelitis and periostitis of the left plantar calcaneal posterior tuberosity. 2. Chronic ulceration inferior to the left plantar calcaneus. POSTOPERATIVE DIAGNOSES: 1. Osteomyelitis and periostitis of the left plantar calcaneal posterior tuberosity. 2. Chronic ulceration inferior to the left plantar calcaneus. PROCEDURE: 1. Excision of plantar ulceration full thickness to deep tissue. 2. Bone culture of the periosteum and cortical bone of the left plantar calcaneus medial plantar tubercle posterior tuberosity of the calcaneus. DESCRIPTION OF PROCEDURE: Under fractional anesthesia and a surgical scrub with Betadine scrub and solution x2, the patient was draped using sterile technique in the supine position. Inspection of the left foot showed a 3.5-cm in diameter wound inferior to the left plantar heel that was filled with chronic inflammatory tissue, periwound hyperkeratosis, and it should be noted that there was no necrosis or purulence present in the wound. Using a No. 15 surgical blade, the wound was excised full thickness all the way through the chronic inflammatory tissue down to the deepest tissues covering the periosteum of the calcaneus. A circumferential incision was made around the circular wound at approximately 4 mm into normal skin tissue. The wound was excised in toto and passed off for tissue biopsy. The remaining wound was inspected and found on purulence abscess or necrotic tissue was left. Using the power lavage system, 3000 mL irrigation was performed at the surgical site. Then using a fresh No. 15 blade, a small incision was made on the plantar aspect of the thin layer of soft tissue covering the periosteum and then using a rongeur, a small section of plantar bone from the plantar cortex was harvested. It was placed in a culturette for bone culture. Bone biopsy was not performed. Bone culture was, and of course, wound tissue pathology was also performed. Following irrigation and bone biopsy of the wound, 2-0 nylon simple interrupted sutures were used to reduce the overall volume of the wound but not closing it completely. Then using 2 pieces of AmnioGraft 2.0 x 1.5-cm tissue graft, these were placed into the remaining area of the wound. A dry, sterile compression dressing was applied around the foot over the left heel to further compress the skin edges medial to lateral and to keep the tissue graft in place. Following dry, sterile dressing application, a [id number] total contact cast was applied by vt with a long arch plastic walking heel applied to prevent weightbearing at the heel and protect the surgical site. The patient tolerated the surgical procedure well and left the operating room stable, alert, awake, and in no pain. MUKESH HERNANDEZ/[id number]
[2019-03-16 15:18] VITALS: BP 140/80; PULSE 80; TEMP 98
--- NOTE | 2019-03-19 15:28 | PATH ---
Surgical Pathology Report Patient Name: ARTHUR LOPEZ Med. Rec. #: [id number] /Age/Gender: 1950 (Age: 68) / M Account: [id number] Location: [facility] Taken: 03/16/2019 Received: 03/17/2019 Reported: 03/19/2019 Physicians: Ritesh Peguero M.D. Specimen(s) Received LEFT HEEL WOUND Clinical History Osteomyelitis left heel, diabetic foot ulcer left heel Final Diagnosis HEEL WOUND, LEFT, DEBRIDEMENT: SKIN AND UNDERLYING SOFT TISSUE WITH MARKED ACUTE INFLAMMATION, ULCERATION, NECROSIS, EDEMA, AND REACTIVE CHANGES. Electronically Signed Minda Aguilar M.D. Gross Description Received in formalin labeled "left heel wound," is a 4.1 x 3.8 cm torres, ovoid, unoriented portion of skin excised to depth of 2.6 cm. There is a 3.7 x 3.5 cm torres, central, ulcerated lesion. Business Functional Analyst sections are submitted in one cassette. 03/17/2019 saudi03/17/2019
== END 2019-03-16 15:15 | disposition home or self-care (01) ==
LOC: JASU-SURG 09:14
PROVIDERS: ATTEND Podiatrist Foot Surgery
PROC: 0HRNXJZ Replacement of Left Foot Skin with Synthetic Substitute, External Approach (ICD-10-PCS; 2019-03-16)
PROC: 0QBM0ZZ Excision of Left Tarsal, Open Approach (ICD-10-PCS; principal; 2019-03-16 12:00)
DX: M86.372 Chronic multifocal osteomyelitis, left ankle and foot (principal); E11.621 Type 2 diabetes mellitus with foot ulcer
CPT/HCPCS: 11044; 15275; Q4133; 82962; 87070; 87075; 87186; 87205; 97116-GP

== ENCOUNTER 2019-04-27 09:33 | Day surgery (SDC) | payer OTHER ==
[2019-04-23 14:50] VITALS: BMI 23.1
[2019-04-27] MEDS ORDERED: MIDAZOLAM HCL 2 MG/2 ML SINGLE DOSE VIAL ONE (11:00)
[2019-04-27] MEDS ORDERED: PROPOFOL 20 ML ONE (11:00)
[2019-04-27] MEDS ORDERED: LIDOCAINE 1%-EPI 1:100,000 30 ML MDV IJ ONE (11:12)
[2019-04-27] MEDS ORDERED: LIDOCAINE HCL/PF 2% SDV 5ML VIAL ONE (11:13)
[2019-04-27] MEDS ORDERED: DEXAMETHASONE SOD PHOSPHATE 4 MG/1 ML VIAL ONE (11:13)
[2019-04-27] MEDS ORDERED: HEPARIN NA (PORCINE) 5,000 UNITS/ML 1ML VIAL ONE ×2 (11:13→11:15)
[2019-04-27] MEDS ORDERED: THROMBIN (BOVINE) 5,000 UNIT VIAL TP ONE ×2 (11:15→12:11)
[2019-04-27] MEDS ORDERED: CALCIUM CHLORIDE 1 GM/10 ML *DISP.SYRIN ONE (11:17)
[2019-04-27] MEDS ORDERED: ceFAZolin SODIUM 1 GM VIAL ONE (11:39)
[2019-04-27] MEDS ORDERED: ceFAZolin SODIUM 1 GM VIAL IVPB ONE (11:40)
[2019-04-27] MEDS ORDERED: LIDOCAINE 1%/EPI 1:100000 (20 ML MULTI DOSE VIAL) IJ ONE (11:55)
[2019-04-27] MEDS ORDERED: BUPIVACAINE HCL/PF 0.5% (5 MG/ML) 30 ML VIAL IJ ONE (12:09)
[2019-04-27] MEDS ORDERED: BACITRACIN 50,000 UNITS VIAL NR ONE (12:10)
--- NOTE | 2019-04-27 12:11 | PN ---
Progress Note (short form) - Note Progress Note: Patient being treated by Dr Peguero for an infected os calcis lesion. A planned Left debridement os calcis followed by instillation of bone marrow concentrate requires that orthopaedic surgeon is to perform the harvest. Discussed the procedure with the patient BMAC being performed from the left ileum today.
--- NOTE | 2019-04-27 12:14 | OP ---
Operative Note - Note: Operative Date: 04/27/19 Operation: Aspiration BMAC Left posterior ileum Surgeon: Mina Lynn Anesthesia: General Estimated Blood Loss (mls): 5 Operative Report Dictated: Yes
[2019-04-27 16:31] VITALS: BP 160/90; PULSE 90; TEMP 98
--- NOTE | 2019-04-27 17:27 | OP ---
DATE OF OPERATION: DATE OF DICTATION: 04/27/2019 SURGEON: Mina Lynn MD CARE MANAGEMENT SPECIALIST: None PREOPERATIVE DIAGNOSIS: Bone marrow aspirate, left posterior ilium. POSTOPERATIVE DIAGNOSIS: Bone marrow aspirate, left posterior ilium. OPERATION PERFORMED: Bone marrow aspiration left ilium. ANESTHESIA: General. POSITION: Lateral decubitus position left side up. OPERATION DETAILS: Patient correctly identified. Brought to the operating room. Time-out was called. The patient was placed in the left lateral decubitus position. The buttock region over the iliac crest was cleansed with Betadine scrub solution, wiped with alcohol, DuraPrep applied. A small incision was made over the ilium. A Jamshidi needle was inserted into the bone bed. This brought about an easy evacuation of 60 mL of thick bone marrow. This was handed off the field to the bone marrow aspirate concentrate team. Wound was closed with 4-0 nylon. MD EUGENIO Brannon/[id number]
--- NOTE | 2019-04-27 21:55 | OP ---
DATE OF OPERATION: 04/27/2019 SURGEON: Ritesh Peguero DPM PREOPERATIVE DIAGNOSIS: Chronic diabetic ulceration of the left plantar heel. POSTOPERATIVE DIAGNOSIS: Chronic diabetic ulceration of the left plantar heel. PROCEDURES: 1. Bone marrow harvesting from the left ischium performed by Dr. Lynn, followed by number 1 resection of the plantar heel ulceration, left side. 2. Complete reduction of the skin edges for primary closure. 3. Reinforcement with a Hancock drain on the far medial and lateral sides to maintain primary closure. 4. Injection of 7 mL of concentrated [facility] bone marrow into the ulceration site through an outside injection site. Under general anesthesia and a surgical scrub with Betadine scrub and solution x2, the patient was draped using sterile technique. Following inspection of the wound that showed adherent skin edges and no periwound inflammation, no necrosis, and no purulence, a double, semielliptical incision was made into healthy skin approximately 2 mm from the wound edge. The incision was carried down through deep tissue and adipose, and the ulceration was excised in toto. Following excision of the ulceration, the wound was copiously irrigated with 3000 mL of power lavage with bacitracin additive. Using all nylon sutures, the wound edges were reapproximated, and using combination of mattress and simple interrupted sutures, the wound edges were reduced and closed. Following complete closure of the wound, a Jaison drain reinforcement was made on the medial and lateral side to take tension off the skin edges. After complete closure of the wound, a [facility] bone marrow concentrate, taken by Dr. Lynn from the left hip, was injected into the wound space to stimulate tissue healing. A dry sterile dressing was applied to the left foot, and then, a total contact cast with a punch-out depression below the plantar calcaneus was applied to the left foot. The patient tolerated the surgical procedure well and left the operating room stable and in no pain. MUKESH HERNANDEZ/[id number]
--- NOTE | 2019-04-28 14:49 | PATH ---
Surgical Pathology Report Patient Name: ARTHUR LOPEZ Med. Rec. #: [id number] /Age/Gender: 1950 (Age: 68) / M Account: [id number] Location: [facility] Taken: 04/27/2019 Received: 04/27/2019 Reported: 04/28/2019 Physicians: Ritesh Peguero M.D. Specimen(s) Received LEFT HEEL WOUND Clinical History Osteomyelitis Final Diagnosis LEFT HEEL WOUND, DEBRIDEMENT: PORTION OF SKIN SHOWING ULCERATION, MARKED ACUTE AND CHRONIC INFLAMMATION WITH GRANULATION TISSUE FORMATION. Electronically Signed Anna Lew M.D. Gross Description Received in formalin labeled "left heel wound," is a 5.0 x 3.8 cm torres, elliptical, unoriented portion of skin excised to depth of 1.5 cm. The epidermal surface displays a 4.3 x 2.2 cm ulcerative lesion. A customer retention representative section is submitted in one cassette. saudi/04/27/2019
== END 2019-04-27 16:00 | disposition home or self-care (01) ==
LOC: JASU-SURG 09:33
PROVIDERS: ATTEND Podiatrist Foot Surgery
PROC: 07DR3ZZ Extraction of Iliac Bone Marrow, Percutaneous Approach (ICD-10-PCS; 2019-04-27)
PROC: 0JBR0ZZ Excision of Left Foot Subcutaneous Tissue and Fascia, Open Approach (ICD-10-PCS; principal; 2019-04-27 11:00)
DX: E11.621 Type 2 diabetes mellitus with foot ulcer (principal); M86.372 Chronic multifocal osteomyelitis, left ankle and foot; L97.426 Non-pressure chronic ulcer of left heel and midfoot with bone involvement without evidence of necrosis; E11.22 Type 2 diabetes mellitus with diabetic chronic kidney disease; I12.9 Hypertensive chronic kidney disease with stage 1 through stage 4 chronic kidney disease, or unspecified chronic kidney disease; N18.9 Chronic kidney disease, unspecified; I25.10 Atherosclerotic heart disease of native coronary artery without angina pectoris; I45.10 Unspecified right bundle-branch block; I35.0 Nonrheumatic aortic (valve) stenosis; M19.90 Unspecified osteoarthritis, unspecified site
CPT/HCPCS: 82962; 88304-TC; 94760; J1644

== ENCOUNTER 2019-06-01 08:52 | Inpatient (IN) | payer OTHER ==
[2019-06-01 10:20] LABS: BASO % 1.4 % (0-2.0); EOS % 1.6 % (0-4.5); HEMOGLOBIN 9.3 GM/dL (11.7-16.9); LYMPH % 13.3 % (8-40); MCH 27.2 pg (25.7-33.7); MEAN CELL VOLUME 84.8 fl (80-96); MEAN PLT VOLUME 8.6 fl (7.5-11.1); MONO % 7.1 % (3.8-10.2); NEUT % 76.6 % (42.8-82.8); PLATELET COUNT 395 K/MM3 (134-434); RBC 3.42 M/mm3 (4.00-5.60); RDW 15.9 % (11.9-15.9); WHITE BLOOD COUNT 9.4 K/mm3 (4.0-10.0)
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
[2019-06-01 11:01] LABS: ALBUMIN 3.2 g/dl (3.4-5.0); BILIRUBIN,TOTAL 0.6 mg/dL (0.2-1); BLOOD UREA NITROGEN 37.5 mg/dL (7-18); CALCIUM 8.7 mg/dL (8.5-10.1); CREATININE 4.3 mg/dL (0.55-1.3); POTASSIUM 5.5 mmol/L (3.5-5.1); TOT PROT 7.8 g/dl (6.4-8.2)
[2019-06-01] MEDS ORDERED: VANCOMYCIN 1,000 MG in DEXTROSE 5%-WATER - 250 ML IVPB ONE (11:20)
[2019-06-01] MEDS ORDERED: VANCOMYCIN 1 GRAM (PRE-DOCKED) 1,000 MG/250 ML BAG IVPB ONE (11:32)
--- NOTE | 2019-06-01 11:41 | HP ---
Admitting History and Physical - Primary Care Physician PCP: Mina Paz - Admission Chief Complaint: Sent for admission for possible ostemylitis/wound infection and IV abx from the wound clinic History of Present Illness: 68-year-old male history of hypertension, CKD, w/ RUE fistula in place for possible HD in the near future, diabetes with multiple admissions for diabetic foot, osteomyelitis, s/p multiple debridement to L foot with wound VAC in place to left heel for the past 3 weeks, no recent antibiotics, seen by Dr Kat of ID several days ago and told that he should come to the ED for admission today as heel wound appears infected. 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 (from diabetes) Cardiovascular: Yes: HTN Gastrointestinal: Yes: Diverticulosis, GERD (with Agarwal's esophagus), Other (hyperplastic colon polyps remoevd 2012) Renal/: Yes: Renal Failure, BPH Heme/Onc: Yes: Anemia (of chronic disease (renal/ diabetes)) Musculoskeletal: Yes: Chronic low back pain (recent lumbar microdiscectomy) Endocrine: Yes: Diabetes Mellitus - Past Surgical History Past Surgical History: Yes: Colonoscopy, Laminectomy (actually microdiscectomy), Upper Endoscopy - Smoking History Smoking history: Never smoked Have you smoked in the past 12 months: No Aproximately how many cigarettes per day: 0 If you are a former smoker, when did you quit?: 1992 - Alcohol/Substance Use Hx Alcohol Use: No - Social History Usual Living Arrangement: Yes: Alone ADL: Independent 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 History of Recent Travel: No Home Medications - Allergies Allergies/Adverse Reactions: Allergies Allergy/AdvReac Type Severity Reaction Status Date / Time No Known Allergies Allergy Verified 06/01/19 08:59 - Home Medications Home Medications: Ambulatory Orders Gabapentin 100 mg PO HS 10/05/17 Glipizide [Glipizide ER] 5 mg PO DAILY 10/05/17 Tamsulosin HCl 0.4 mg PO HS 10/05/17 Latanoprost/Pf [Latanoprost 0.005% Eye Drop] 1 drop OU HS 10/26/17 Timolol 0.25% [Timoptic 0.25%] 1 drop OU BID 10/26/17 Amlodipine Besylate [Norvasc -] 5 mg PO HS 01/07/18 Valsartan 160 mg PO DAILY 01/15/18 Brinzolamide/Brimonidine Tart [Simbrinza 1%-0.2% Eye Drops] 1 drop OU BID 04/27/19 Review of Systems - Review of Systems Constitutional: reports: No Symptoms Eyes: reports: No Symptoms HENT: reports: No Symptoms Neck: reports: No Symptoms Cardiovascular: reports: No Symptoms Respiratory: reports: No Symptoms Gastrointestinal: reports: No Symptoms Genitourinary: reports: No Symptoms Breasts: reports: No Symptoms Reported Musculoskeletal: reports: No Symptoms Integumentary: reports: Erythema, Wound (left foot), Other (wound vac in place to left foot, Swelling (to L foot diffusely, most notably to L heel w/ malodorous ulcer to heel w/ wound vac in place, no sig erythema)) Neurological: reports: No Symptoms Endocrine: reports: No Symptoms Hematology/Lymphatic: reports: No Symptoms Psychiatric: reports: No Symptoms Pain Intensity: 3 Physical Examination Vital Signs: Vital Signs Temperature 98.3 F 06/01/19 09:02 Pulse Rate 100 H 06/01/19 09:02 Respiratory Rate 18 06/01/19 09:02 Blood Pressure 152/73 06/01/19 09:02 O2 Sat by Pulse Oximetry (%) 100 06/01/19 09:02 Constitutional: Yes: Well Nourished, No Distress, Calm HENT: Yes: WNL, Atraumatic, Normocephalic Neck: Yes: WNL, Supple, Trachea Midline Cardiovascular: Yes: WNL, Regular Rate and Rhythm Respiratory: Yes: WNL, Regular, CTA Bilaterally Gastrointestinal: Yes: WNL, Normal Bowel Sounds ...Rectal Exam: Yes: Deferred Renal/: Yes: WNL Breast(s): Yes: WNL Musculoskeletal: Yes: WNL Extremities: Yes: Other (right UE fistula, Swelling (to L foot diffusely, most n otably to L heel w/ malodorous ulcer to heel w/ wound vac in place, no sig erythema)) Edema: Yes Edema: LLE: 1+, RLE: 1+ Peripheral Pulses WNL: No Peripheral Pulses: Left Radial: 2+, Right Radial: 2+, Left Doralis Pedis: 1+, Right Dorsalis Pedis: 2+, Left Femoral: 2+, Right Femoral: 2+ Integumentary: Yes: Erythema, Other (Swelling (to L foot diffusely, most notably to L heel w/ malodorous ulcer to heel w/ wound vac in place, no sig erythema)) Wound/Incision: Yes: Other (vac dressing in place to left foot) Neurological: Yes: WNL, Alert, Oriented ...Motor Strength: WNL Psychiatric: Yes: WNL Labs: CBC, BMP 06/01/19 10:00 06/01/19 10:00 Imaging - Results MRI: Pending (MRI right/left foot) Problem List - Problems (1) Prophylactic measure Assessment/Plan: FEN Fluids: adequate PO intake Electrolytes: monitor & replete as needed Nutrition: diabetic diet DVT moderate risk sq heparin Dispo Maintain as inpatient full code discharge planning Code(s): Z29.9 - ENCOUNTER FOR PROPHYLACTIC MEASURES, UNSPECIFIED (2) CKD stage 4 due to type 2 diabetes mellitus Assessment/Plan: Cr 4.3 not on HD but AVF in place avoid nephrotoxic agents consult placed for Dr Rosales (seen in past) Code(s): E11.22 - TYPE 2 DIABETES MELLITUS W DIABETIC CHRONIC KIDNEY DISEASE; N18.4 - CHRONIC KIDNEY DISEASE, STAGE 4 (SEVERE) (3) HTN (hypertension) Assessment/Plan: c/w home dose of valsartan, norvasc Code(s): I10 - ESSENTIAL (PRIMARY) HYPERTENSION (4) T2DM (type 2 diabetes mellitus) Assessment/Plan: BGM AC/HS with novolg sliding scale diabetic diet Code(s): E11.9 - TYPE 2 DIABETES MELLITUS WITHOUT COMPLICATIONS Qualifiers: Diabetes mellitus complication status: with neurologic complications Diabetes mellitus complication detail: with polyneuropathy (5) Wound infection Assessment/Plan: wound vac in place following with Dr Peguero in wound clinic seen by Dr kat and amita and one dose of vaco given f/u cx-previous wound cx with pseudomonas/enterococcus/e coli Code(s): T14.8XXA - OTHER INJURY OF UNSPECIFIED BODY REGION, INITIAL ENCOUNTER; L08.9 - LOCAL INFECTION OF THE SKIN AND SUBCUTANEOUS TISSUE, UNSP (6) Diabetic foot ulcer Assessment/Plan: chronic wounds to left dousum/feel after walking on hot pavement 2 years ago chronic wound infection with mutiple decrodements wound vac applied now with malodorous drainage MRI pending to r/o osteo Dr Kat ID following Dr Peguero to see Code(s): E11.621 - TYPE 2 DIABETES MELLITUS WITH FOOT ULCER; L97.509 - NON- PRESSURE CHRONIC ULCER OTH PRT UNSP FOOT W UNSP SEVERITY Qualifiers: Diabetic foot ulcer location: heel Diabetes mellitus type: other specified (including NICHO) Laterality: left Non-pressure ulcer stage: with other severity Qualified Code(s): E13.621 - Other specified diabetes mellitus with foot ulcer; L97.428 - Non-pressure chronic ulcer of left heel and midfoot with other specified severity Visit type - Emergency Visit Emergency Visit: Yes ED Registration Date: 06/01/19 Care time: The patient presented to the Emergency Department on the above date and was hospitalized for further evaluation of their emergent condition. - New Patient This patient is new to me today: Yes Date on this admission: 06/01/19 - Critical Care Critical Care patient: No
--- NOTE | 2019-06-01 14:09 | CON.ID ---
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 History of Recent Travel: No Home Medications - Allergies Allergies/Adverse Reactions: Allergies Allergy/AdvReac Type Severity Reaction Status Date / Time No Known Allergies Allergy Verified 06/01/19 08:59 - Home Medications Home Medications: Ambulatory Orders Gabapentin 100 mg PO HS 10/05/17 Glipizide [Glipizide ER] 5 mg PO DAILY 10/05/17 Tamsulosin HCl 0.4 mg PO HS 10/05/17 Latanoprost/Pf [Latanoprost 0.005% Eye Drop] 1 drop OU HS 10/26/17 Timolol 0.25% [Timoptic 0.25%] 1 drop OU BID 10/26/17 Amlodipine Besylate [Norvasc -] 5 mg PO HS 01/07/18 Valsartan 160 mg PO DAILY 01/15/18 Brinzolamide/Brimonidine Tart [Simbrinza 1%-0.2% Eye Drops] 1 drop OU BID 04/27/19 Physical Exam Vital Signs: Vital Signs Temperature 99.5 F 06/01/19 11:46 Pulse Rate 96 H 06/01/19 11:46 Respiratory Rate 18 06/01/19 11:46 Blood Pressure 156/79 06/01/19 11:46 O2 Sat by Pulse Oximetry (%) 98 06/01/19 11:46 Labs: CBC, BMP 06/01/19 10:00 06/01/19 10:00
--- NOTE | 2019-06-01 16:06 | EKG ---
Test Reason : Blood Pressure : / mmHG Vent. Rate : 096 BPM Atrial Rate : 096 BPM P-R Int : 172 ms QRS Dur : 134 ms QT Int : 366 ms P-R-T Axes : 028 068 029 degrees QTc Int : 462 ms NORMAL SINUS RHYTHM RIGHT BUNDLE BRANCH BLOCK ABNORMAL ECG WHEN COMPARED WITH ECG OF 26-OCT-2017 16:48, NO SIGNIFICANT CHANGE WAS FOUND Confirmed by AMPARO VELAZQUEZ MD ([id number]) on 06/01/2019 4:06:01 PM Referred By: Confirmed By:AMPARO VELAZQUEZ MD
[2019-06-01] MEDS ORDERED: INSULIN (NOVOLOG) ASPART 100 UNITS/ML 10ML VIAL ONE (16:37)
[2019-06-01] MEDS ORDERED: PIPERACILLIN/TAZOBACTAM 2.25 GM VIAL IVPB ONE (16:37)
[2019-06-01] MEDS ORDERED: DEXTROSE 5%-WATER - 50 ML IVPB ONE (16:37)
[2019-06-01] MEDS: PIPERACILLIN/TAZOB 2.25 GM 2.25 GM in DEXTROSE 5%-WATER - 50 ML IVPB SCH ×2 (16:44→17:45)
[2019-06-01] MEDS: INSULIN SLIDING SCALE (NOVOLOG) 1 VIAL SQ SCH ×2 (16:51→21:43)
[2019-06-01] MEDS ORDERED: ACETAMINOPHEN 325 MG TABLET (FP) PO PRN ×2 (17:34→17:37)
[2019-06-01] MEDS: oxyCODONE HCL 5 MG TABLET PO PRN (18:33)
[2019-06-01 19:54] VITALS: BMI 22.6
[2019-06-01] MEDS ORDERED: PT OWN MED DRAWER 7, Y5N ONE (21:05)
[2019-06-01] MEDS: TAMSULOSIN HCL 0.4 MG CAP PO SCH (21:43)
[2019-06-01] MEDS: GABAPENTIN 100 MG CAPSULE PO SCH (21:43)
[2019-06-01] MEDS: amLODIPine BESYLATE 5 MG TABLET (FP) PO SCH (21:43)
[2019-06-01] MEDS: HEPARIN NA (PORCINE) 5,000 UNITS/ML 1ML VIAL SQ SCH (21:44)
[2019-06-01] MEDS: LATANOPROST 0.005% OPHTH SOLN 2.5ML BOTTLE OU SCH (21:44)
[2019-06-01 22:06] LABS: INR 1.44 (0.83-1.09)
[2019-06-01] MEDS: TIMOLOL 0.25% OPHTHALMIC SOL 5 ML BOTTLE OU SCH (23:36)
[2019-06-02] MEDS ORDERED: PIPERACILLIN/TAZOBACTAM 2.25 GM VIAL IVPB ONE ×4 (02:22→17:48)
[2019-06-02] MEDS ORDERED: DEXTROSE 5%-WATER - 50 ML IVPB ONE ×4 (02:23→17:48)
[2019-06-02] MEDS: PIPERACILLIN/TAZOB 2.25 GM 2.25 GM in DEXTROSE 5%-WATER - 50 ML IVPB SCH ×3 (02:54→17:46)
[2019-06-02] MEDS: INSULIN SLIDING SCALE (NOVOLOG) 1 VIAL SQ SCH ×4 (06:40→21:45)
[2019-06-02] MEDS ORDERED: PT OWN MED DRAWER 7, Y5N ONE ×2 (07:58→10:44)
[2019-06-02 08:19] LABS: HEMATOCRIT 25.5 % (35.4-49); HEMOGLOBIN 8.1 GM/dL (11.7-16.9); MCH 26.8 pg (25.7-33.7); MCHC 31.7 g/dl (32.0-35.9); MEAN CELL VOLUME 84.3 fl (80-96); PLATELET COUNT 295 K/MM3 (134-434); RBC 3.03 M/mm3 (4.00-5.60); RDW 15.7 % (11.9-15.9); WHITE BLOOD COUNT 11.5 K/mm3 (4.0-10.0)
[2019-06-02 08:32] LABS: ALBUMIN 2.4 g/dl (3.4-5.0); BILIRUBIN,TOTAL 0.6 mg/dL (0.2-1); BLOOD UREA NITROGEN 37.2 mg/dL (7-18); CALCIUM 8.2 mg/dL (8.5-10.1); CREATININE 4.2 mg/dL (0.55-1.3); MAGNESIUM 1.9 mg/dL (1.8-2.4); PHOSPHOROUS 3.1 mg/dL (2.5-4.9); POTASSIUM 5.8 mmol/L (3.5-5.1); TOT PROT 6.2 g/dl (6.4-8.2)
[2019-06-02] MEDS ORDERED: SODIUM POLYSTYRENE SULFONATE 15 GM/60 ML BOTTLE PO ONE (09:15)
--- NOTE | 2019-06-02 09:45 | PN ---
Physical Exam: SUBJECTIVE: Patient seen and examined at the bedside. reports soreness of the left foot, otherwise he is comfortable and resting. denies shortness of breath or any other discomfort. OBJECTIVE: left foot edematous, bandage intact Patient is a 68 year old male with a significant past medical history of hypertension, CKD, w/ RUE fistula in place for possible HD in the near future, diabetes with multiple admissions for diabetic foot, osteomyelitis, s/p multiple debridement to L foot with wound VAC in place to left heel for the past 3 weeks, no recent antibiotics, seen by Dr Kat of ID several days ago and told that he should come to the ED for admission today as left heel wound appears infected. Vital Signs Period Temp Pulse Resp BP Sys/Dudley Pulse Ox Last 24 Hr 98.1 F-99.8 F 84-109 18-18 122-156/64-84 96-100 GENERAL: The patient is awake, alert, and fully oriented, in no acute distress. HEAD: Normal with no signs of trauma. EYES: PERRL, extraocular movements intact, sclera anicteric, conjunctiva clear. No ptosis. ENT: Ears normal, nares patent, oropharynx clear without exudates, moist mucous membranes. NECK: Trachea midline, full range of motion, supple. LUNGS: Breath sounds equal, clear to auscultation bilaterally, no wheezes. tolerating room patti ABDOMEN: Soft, nontender, nondistended, normoactive bowel sounds, no guarding, no rebound, no hepatosplenomegaly, no masses. EXTREMITIES: left lower ext edema from romero to foot, non pitting + diabetic foot ulcer - negative for dvt NEUROLOGICAL: Normal speech, gait not observed. PSYCH: Normal mood, normal affect. SKIN: Warm, dry, normal turgor, no rashes or lesions noted Laboratory Results - last 24 hr 06/01/19 06/01/19 06/01/19 10:00 10:00 16:47 WBC 9.4 RBC 3.42 L Hgb 9.3 L Hct 29.0 L MCV 84.8 MCH 27.2 MCHC 32.0 RDW 15.9 Plt Count 395 D MPV 8.6 Absolute Neuts (auto) 7.2 Neutrophils % 76.6 D Lymphocytes % 13.3 D Monocytes % 7.1 Eosinophils % 1.6 Basophils % 1.4 Nucleated RBC % 0 PT with INR INR Sodium 134 L Potassium 5.5 H Chloride 106 Carbon Dioxide 19 L Anion Gap 9 BUN 37.5 H Creatinine 4.3 H Est GFR (CKD-EPI)AfAm 15.30 Est GFR (CKD-EPI)NonAf 13.20 POC Glucometer 99 Random Glucose 113 H Calcium 8.7 Phosphorus Magnesium Total Bilirubin 0.6 AST 12 L ALT 11 L Alkaline Phosphatase 125 H C-Reactive Protein Total Protein 7.8 Albumin 3.2 L Blood Type Antibody Screen 06/01/19 06/01/19 06/01/19 21:00 21:00 21:27 WBC RBC Hgb Hct MCV MCH MCHC RDW Plt Count MPV Absolute Neuts (auto) Neutrophils % Lymphocytes % Monocytes % Eosinophils % Basophils % Nucleated RBC % PT with INR 17.00 H INR 1.44 H Sodium Potassium Chloride Carbon Dioxide Anion Gap BUN Creatinine Est GFR (CKD-EPI)AfAm Est GFR (CKD-EPI)NonAf POC Glucometer 57 Random Glucose Calcium Phosphorus Magnesium Total Bilirubin AST ALT Alkaline Phosphatase C-Reactive Protein Total Protein Albumin Blood Type A POSITIVE Antibody Screen Negative 06/02/19 06/02/19 06/02/19 02:53 06:38 07:20 WBC 11.5 H RBC 3.03 L Hgb 8.1 L Hct 25.5 L MCV 84.3 MCH 26.8 MCHC 31.7 L RDW 15.7 Plt Count 295 D MPV 9.0 Absolute Neuts (auto) Neutrophils % Lymphocytes % Monocytes % Eosinophils % Basophils % Nucleated RBC % PT with INR INR Sodium Potassium Chloride Carbon Dioxide Anion Gap BUN Creatinine Est GFR (CKD-EPI)AfAm Est GFR (CKD-EPI)NonAf POC Glucometer 70 82 Random Glucose Calcium Phosphorus Magnesium Total Bilirubin AST ALT Alkaline Phosphatase C-Reactive Protein Total Protein Albumin Blood Type Antibody Screen 06/02/19 07:25 WBC RBC Hgb Hct MCV MCH MCHC RDW Plt Count MPV Absolute Neuts (auto) Neutrophils % Lymphocytes % Monocytes % Eosinophils % Basophils % Nucleated RBC % PT with INR INR Sodium 133 L Potassium 5.8 H Chloride 107 Carbon Dioxide 18 L Anion Gap 8 BUN 37.2 H Creatinine 4.2 H Est GFR (CKD-EPI)AfAm 15.74 Est GFR (CKD-EPI)NonAf 13.58 POC Glucometer Random Glucose 136 H Calcium 8.2 L Phosphorus 3.1 Magnesium 1.9 Total Bilirubin 0.6 AST 13 L ALT 11 L Alkaline Phosphatase 102 C-Reactive Protein 14.6 H Total Protein 6.2 L Albumin 2.4 L Blood Type Antibody Screen Active Medications Generic Name Dose Route Start Last Admin Trade Name Freq PRN Reason Stop Dose Admin Acetaminophen 650 mg 06/01/19 17:37 Tylenol - PO Q6H PRN PAIN LEVEL 1 - 3 Amlodipine Besylate 5 mg 06/01/19 22:00 06/01/19 21:43 Norvasc - PO 5 mg HS FORD Administration Gabapentin 100 mg 06/01/19 22:00 06/01/19 21:43 Neurontin - PO 100 mg HS FORD Administration Heparin Sodium (Porcine) 5,000 unit 06/01/19 22:00 06/01/19 21:44 Heparin - SQ 5,000 unit BID FORD Administration Piperacillin Sod/Tazobactam 50 mls @ 100 mls/hr 06/01/19 14:15 06/02/19 02:54 Sod 2.25 gm/ Dextrose IVPB 100 mls/hr Q8H-IV FORD Administration Protocol Insulin Aspart 1 vial 06/01/19 16:30 06/02/19 06:40 Novolog Vial Sliding Scale - SQ Not Given ACHS [facility] Protocol Latanoprost 1 drop 06/01/19 22:00 06/01/19 21:44 Xalatan 0.005% Eye Drops - OU 1 drop HS FORD Administration Oxycodone HCl 5 mg 06/01/19 17:36 Roxicodone - PO Q6H PRN PAIN LEVEL 4 - 6 Oxycodone HCl 10 mg 06/01/19 17:36 06/01/19 18:33 Roxicodone - PO 10 mg Q6H PRN Administration PAIN LEVEL 7 - 10 Tamsulosin HCl 0.4 mg 06/01/19 22:00 06/01/19 21:43 Flomax - PO 0.4 mg HS FORD Administration Timolol Maleate 1 drop 06/01/19 22:00 06/01/19 23:36 Timoptic 0.25% OU 1 drop BID FORD Administration ASSESSMENT/PLAN: Problem List - Problems (1) Wound infection Assessment/Plan: per ID patient will need 6 weeks of Zosyn for left foot wound infection/osteomyelitis Code(s): T14.8XXA - OTHER INJURY OF UNSPECIFIED BODY REGION, INITIAL ENCOUNTER; L08.9 - LOCAL INFECTION OF THE SKIN AND SUBCUTANEOUS TISSUE, UNSP (2) Diabetic foot ulcer Assessment/Plan: chronic wounds to left dousum foot per MRI, patient likely has osteomyelitis and as per ID will need approximately 6 weeks of IV antibiotics (zosyn) to be administered via picc line at [place]. Dr [place] KEYES following Code(s): E11.621 - TYPE 2 DIABETES MELLITUS WITH FOOT ULCER; L97.509 - NON- PRESSURE CHRONIC ULCER OTH PRT UNSP FOOT W UNSP SEVERITY Qualifiers: Diabetic foot ulcer location: heel Diabetes mellitus type: other specified (including NICHO) Laterality: left Non-pressure ulcer stage: with other sev erity Qualified Code(s): E13.621 - Other specified diabetes mellitus with foot ulcer; L97.428 - Non-pressure chronic ulcer of left heel and midfoot with other specified severity (3) Acute on chronic kidney failure Assessment/Plan: Cr 4.2. not on HD, but AVF in place avoid nephrotoxic agents Dr. Rosales following Code(s): N17.9 - ACUTE KIDNEY FAILURE, UNSPECIFIED; N18.9 - CHRONIC KIDNEY DISEASE, UNSPECIFIED Qualifiers: Chronic kidney disease stage: stage 4 (severe) (4) Anemia Assessment/Plan: Given epogen and to be started on oral iron therapy Code(s): D64.9 - ANEMIA, UNSPECIFIED Qualifiers: Anemia type: due to chronic kidney disease Chronic kidney disease stage: stage 4 (severe) Qualified Code(s): N18.4 - Chronic kidney disease, stage 4 (severe); D63.1 - Anemia in chronic kidney disease (5) HTN (hypertension) Assessment/Plan: on norvasc, valsartan on hold for UMER Code(s): I10 - ESSENTIAL (PRIMARY) HYPERTENSION (6) Hyperkalemia Code(s): E87.5 - HYPERKALEMIA (7) Osteomyelitis Assessment/Plan: osteo of left foot/heel will need 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 Code(s): E11.9 - TYPE 2 DIABETES MELLITUS WITHOUT COMPLICATIONS Qualifiers: Diabetes mellitus complication status: with neurologic complications Diabetes mellitus complication detail: with polyneuropathy (9) Prophylactic measure Assessment/Plan: Fluids: adequate PO intake Electrolytes: monitor & replete as needed Nutrition: diabetic diet DVT moderate risk sq heparin Dispo Maintain as inpatient full code discharge planning Code(s): Z29.9 - ENCOUNTER FOR PROPHYLACTIC MEASURES, UNSPECIFIED Visit type - Emergency Visit Emergency Visit: Yes ED Registration Date: 06/01/19 Care time: The patient presented to the Emergency Department on the above date and was hospitalized for further evaluation of their emergent condition. - New Patient This patient is new to me today: No - Critical Care Critical Care patient: No - Discharge Referral Referred to [facility] Med P.C.: No
--- NOTE | 2019-06-02 09:50 | CON.NEP ---
Consult Consult Specialty:: Nephrology Referred by:: Hospitalist Reason for Consultation:: CKD stage 5 - History of Present Illness Chief Complaint: LE ulcer History of Present Illness: This is a 68 year old gentleman with history of CKD stage 5, hypertension, DM, PVD, GERD, chronic anemia, peripheral neuropathy who presented from home with non-healing LE ulcer and admitted for suspected osteomylitis and noted to have elevated BUN/Cr and potassium. Seen and examined at the bedside. He denies any fever, chills, cough, pain, chest pain, N/V/D, swelling, rash, confusion, lethargy, LUCIANO or weakness. Making urine. Appetite is preserved. No metallic taste in the mouth. No flank pain. No hematuria or dysuria. s - History Source History Provided By: Patient Limitations to Obtaining History: No Limitations - Past Medical History [employer]: Yes: Peripheral Neuropathy (from diabetes) Cardio/Vascular: Yes: HTN Gastrointestinal: Yes: Diverticulosis, GERD (with Agarwal's esophagus), Other (hyperplastic colon polyps remoevd 2012) Renal/: Yes: Renal Failure, BPH Musculoskeletal: Yes: Chronic low back pain (recent lumbar microdiscectomy) Endocrine: Yes: Diabetes Mellitus Additional Medical History: right retinal detachment. 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 History of Recent Travel: No Home Medications - Allergies Allergies/Adverse Reactions: Allergies Allergy/AdvReac Type Severity Reaction Status Date / Time No Known Allergies Allergy Verified 06/01/19 08:59 - Home Medications Home Medications: Ambulatory Orders Gabapentin 100 mg PO HS 10/05/17 Glipizide [Glipizide ER] 5 mg PO DAILY 10/05/17 Tamsulosin HCl 0.4 mg PO HS 10/05/17 Latanoprost/Pf [Latanoprost 0.005% Eye Drop] 1 drop OU HS 10/26/17 Timolol 0.25% [Timoptic 0.25%] 1 drop OU BID 10/26/17 Amlodipine Besylate [Norvasc -] 5 mg PO HS 01/07/18 Valsartan 160 mg PO DAILY 01/15/18 Brinzolamide/Brimonidine Tart [Simbrinza 1%-0.2% Eye Drops] 1 drop OU BID 04/27/19 Family Medical History Family History: Unremarkable Review of Systems - Review of Systems Constitutional: denies: Chills, Diaphoresis, Fever, Lethargy, Loss of Appetite, Night Sweats, Unintentional Wgt. Loss, Weakness Eyes: reports: No Symptoms HENT: reports: No Symptoms Neck: reports: No Symptoms Cardiovascular: denies: Chest Pain, Edema, Palpitations, Shortness of Breath Respiratory: denies: Cough, Hemoptysis, Orthopnea, PND, SOB, SOB on Exertion, Wheezing Gastrointestinal: denies: Abdominal Pain, Constipation, Diarrhea, Melena, Nausea, Vomiting Genitourinary: denies: Dysuria, Flank Pain, Hematuria, Urgency Musculoskeletal: reports: Back Pain Neurological: denies: Change in LOC, Change in Speech, Confusion, Dizziness, Headache, Incoordination, Numbness, Parasthesia Endocrine: reports: No Symptoms Hematology/Lymphatic: reports: No Symptoms Psychiatric: reports: No Symptoms Nephrology Consult - Height Height: 6 ft 2 in - Weight Weight: 79.841 kg - BMI Body Mass Index (BMI): 22.6 - Lab Results CBC,BMP: CBC, BMP 06/02/19 07:20 06/02/19 07:25 Anion Gap: Anion Gap Anion Gap 8 MMOL/L (8-16) 06/02/19 07:25 - Imaging Chest X-ray: Report Reviewed MRI: Report Reviewed - Physical Examination Vital Signs: Vital Signs Temperature 98.1 F 06/02/19 06:00 Pulse Rate 84 06/02/19 06:00 Respiratory Rate 18 06/02/19 06:00 Blood Pressure 122/64 06/02/19 06:00 O2 Sat by Pulse Oximetry (%) 100 06/01/19 21:00 Constitutional: Yes: Well Nourished, No Distress, Calm Eyes: Yes: Conjunctiva Clear HENT: Yes: Atraumatic, Normocephalic Neck: Yes: Supple, Trachea Midline Cardiovascular: Yes: Regular Rate and Rhythm, S1, S2. No: JVD, Murmur, Rub Respiratory: Yes: Regular, CTA Bilaterally. No: On Nasal O2, Rhonchi, SOB, Wheezes Gastrointestinal: Yes: Normal Bowel Sounds, Soft. No: Distention, Hepatomegaly, Tenderness Renal/: No: Anuria, Bladder Distention, CVA Tenderness - Right, [place] Present, Hematuria Extremities: Yes: Other (foot in dressing). No: Cold, Cool, Cyanosis Edema: Yes Edema: RLE: 2+ Neurological: Yes: Alert, Oriented Psychiatric: Yes: Alert, Oriented Assessment/Plan 68 year old gentleman with history of CKD stage 5, hypertension, DM, PVD, GERD, chronic anemia, peripheral neuropathy who presented from home with non-healing LE ulcer and admitted for suspected osteomylitis and noted to have elevated BUN/Cr and potassium. 1. Chronic kidney disease stage 5 2. Hyperkalemia 3. LE ulcer 4. Osteomylitis 5. Hypertension 6. DM 7. Peripheral neuropathy 8. Chronic Anemia Renal function stable. Despite low eGFR there is no emergent indication for dialysis at this time Continue Renal diet Aviod NSAIDs for pain control, avoid IV contrast exposure dose all meds for CrCl ~10 Will give Lokelma daily for mangemetn of hyperkalemia Holding ARB given hyperkalemia to get 2L of NS over 24 hours repeat K in the evening Abx as per ID wound care Trend H/H, check iron studies Thank you Will follow Marvin Rosales DO
[2019-06-02] MEDS ORDERED: VALSARTAN 160 MG TABLET (UD) PO SCH (10:00)
[2019-06-02] MEDS: TIMOLOL 0.25% OPHTHALMIC SOL 5 ML BOTTLE OU SCH ×2 (10:33→21:40)
[2019-06-02] MEDS: HEPARIN NA (PORCINE) 5,000 UNITS/ML 1ML VIAL SQ SCH ×2 (10:33→21:29)
[2019-06-02] MEDS: SODIUM ZIRCONIUM CYCLOSILICATE (LOKELMA) 5 GM PACKET PO SCH (10:52)
[2019-06-02 11:20] LABS: INR 1.67 (0.82-1.09); PROTHROMBIN TIME (PATIENT) 18.5 SEC (10.2-13.0)
--- NOTE | 2019-06-02 11:57 | PN ---
Progress Note, Physician History of Present Illness: stable no new issues mri result noted - Current Medication List Current Medications: Active Medications Acetaminophen (Tylenol -) 650 mg PO Q6H PRN PRN Reason: PAIN LEVEL 1 - 3 Amlodipine Besylate (Norvasc -) 5 mg PO [facility] Last Admin: 06/01/19 21:43 Dose: 5 mg Documented by: Gabapentin (Neurontin -) 100 mg PO [facility] Last Admin: 06/01/19 21:43 Dose: 100 mg Documented by: Heparin Sodium (Porcine) (Heparin -) 5,000 unit SQ BID [facility] Last Admin: 06/02/19 10:33 Dose: 5,000 unit Documented by: Piperacillin Sod/Tazobactam (Sod 2.25 gm/ Dextrose) 50 mls @ 100 mls/hr IVPB Q8H-IV [facility]; Protocol Last Admin: 06/02/19 10:33 Dose: 100 mls/hr Documented by: Insulin Aspart (Novolog Vial Sliding Scale -) 1 vial SQ ACHS [facility]; Protocol Last Admin: 06/02/19 11:29 Dose: Not Given Documented by: Latanoprost (Xalatan 0.005% Eye Drops -) 1 drop OU [facility] Last Admin: 06/01/19 21:44 Dose: 1 drop Documented by: Oxycodone HCl (Roxicodone -) 5 mg PO Q6H PRN PRN Reason: PAIN LEVEL 4 - 6 Oxycodone HCl (Roxicodone -) 10 mg PO Q6H PRN PRN Reason: PAIN LEVEL 7 - 10 Last Admin: 06/01/19 18:33 Dose: 10 mg Documented by: Sodium Zirconium Cyclosilicate (Lokelma) 10 gm PO DAILY [facility] Last Admin: 06/02/19 10:52 Dose: 10 gm Documented by: Tamsulosin HCl (Flomax -) 0.4 mg PO [facility] Last Admin: 06/01/19 21:43 Dose: 0.4 mg Documented by: Timolol Maleate (Timoptic 0.25%) 1 drop OU BID [facility] Last Admin: 06/02/19 10:33 Dose: 1 drop Documented by: - Objective Vital Signs: Vital Signs Temperature 98.1 F 06/02/19 06:00 Pulse Rate 84 06/02/19 06:00 Respiratory Rate 18 06/02/19 06:00 Blood Pressure 122/64 06/02/19 06:00 O2 Sat by Pulse Oximetry (%) 100 06/01/19 21:00 Constitutional: Yes: No Distress, Calm Cardiovascular: Yes: S1, S2 Respiratory: Yes: Regular, CTA Bilaterally Gastrointestinal: Yes: Normal Bowel Sounds, Soft Musculoskeletal: Yes: WNL Extremities: Yes: Other Wound/Incision: Yes: Dressing Dry and Intact Neurological: Yes: Alert, Oriented Psychiatric: Yes: Alert, Oriented Labs: CBC, BMP 06/02/19 07:20 06/02/19 07:25 INR, PTT INR 1.67 (0.82-1.09) H 06/02/19 07:25 Assessment/Plan CKD stage 4 due to type 2 diabetes mellitus Code(s): E11.22 - TYPE 2 DIABETES MELLITUS W DIABETIC CHRONIC KIDNEY DISEASE; N18.4 - CHRONIC KIDNEY DISEASE, STAGE 4 (SEVERE) (3) HTN (hypertension) Code(s): I10 - ESSENTIAL (PRIMARY) HYPERTENSION (4) T2DM (type 2 diabetes mellitus) Code(s): E11.9 - TYPE 2 DIABETES MELLITUS WITHOUT COMPLICATIONS Qualifiers: Diabetes mellitus complication status: with neurologic complications Diabetes mellitus complication detail: with polyneuropathy (5) Wound infection Code(s): T14.8XXA - OTHER INJURY OF UNSPECIFIED BODY REGION, INITIAL ENCOUNTER; L08.9 - LOCAL INFECTION OF THE SKIN AND SUBCUTANEOUS TISSUE, UNSP (6) Diabetic foot ulcer Code(s): E11.621 - TYPE 2 DIABETES MELLITUS WITH FOOT ULCER; L97.509 - NON- PRESSURE CHRONIC ULCER OTH PRT UNSP FOOT W UNSP SEVERITY Qualifiers: Diabetic foot ulcer location: heel Diabetes mellitus type: other specified (including NICHO) Laterality: left Non-pressure ulcer stage: with other severity Qualified Code(s): E13.621 - Other specified diabetes mellitus with foot ulcer; L97.428 - Non-pressure chronic ulcer of left heel and midfoot with other specified severity 7 osteo of the foot/heel plan continue current mgmt will need abx for 6 weeks wound care might need wound vac rest as per the team
[2019-06-02] MEDS: oxyCODONE HCL 5 MG TABLET PO PRN ×2 (12:25→21:36)
[2019-06-02] MEDS ORDERED: INSULIN (NOVOLOG) ASPART 100 UNITS/ML 10ML VIAL ONE (16:49)
[2019-06-02] MEDS: GABAPENTIN 100 MG CAPSULE PO SCH (21:36)
[2019-06-02] MEDS: amLODIPine BESYLATE 5 MG TABLET (FP) PO SCH (21:39)
[2019-06-02] MEDS: TAMSULOSIN HCL 0.4 MG CAP PO SCH (21:39)
[2019-06-02] MEDS: LATANOPROST 0.005% OPHTH SOLN 2.5ML BOTTLE OU SCH (21:41)
[2019-06-03] MEDS ORDERED: DEXTROSE 5%-WATER - 50 ML IVPB ONE ×3 (00:41→17:06)
[2019-06-03] MEDS ORDERED: PIPERACILLIN/TAZOBACTAM 2.25 GM VIAL IVPB ONE ×3 (00:41→17:06)
[2019-06-03] MEDS: PIPERACILLIN/TAZOB 2.25 GM 2.25 GM in DEXTROSE 5%-WATER - 50 ML IVPB SCH ×3 (01:19→17:16)
[2019-06-03] MEDS: INSULIN SLIDING SCALE (NOVOLOG) 1 VIAL SQ SCH ×4 (06:47→21:51)
[2019-06-03 08:53] LABS: BASO % 0.6 % (0-2.0); EOS % 0.5 % (0-4.5); HEMOGLOBIN 7.8 GM/dL (11.7-16.9); LYMPH % 12.9 % (8-40); MCH 27.6 pg (25.7-33.7); MCHC 32.7 g/dl (32.0-35.9); MEAN CELL VOLUME 84.5 fl (80-96); MEAN PLT VOLUME 8.8 fl (7.5-11.1); MONO % 7.9 % (3.8-10.2); NEUT % 78.1 % (42.8-82.8); PLATELET COUNT 279 K/MM3 (134-434); RBC 2.84 M/mm3 (4.00-5.60); RDW 15.8 % (11.9-15.9); WHITE BLOOD COUNT 10.1 K/mm3 (4.0-10.0)
[2019-06-03 09:29] LABS: ALBUMIN 2.2 g/dl (3.4-5.0); BILIRUBIN,TOTAL 0.5 mg/dL (0.2-1); BLOOD UREA NITROGEN 43.9 mg/dL (7-18); CREATININE 4.5 mg/dL (0.55-1.3); MAGNESIUM 1.8 mg/dL (1.8-2.4); POTASSIUM 4.9 mmol/L (3.5-5.1)
[2019-06-03] MEDS: oxyCODONE HCL 5 MG TABLET PO PRN ×2 (09:55→17:24)
[2019-06-03] MEDS: SODIUM ZIRCONIUM CYCLOSILICATE (LOKELMA) 5 GM PACKET PO SCH (09:56)
[2019-06-03] MEDS: HEPARIN NA (PORCINE) 5,000 UNITS/ML 1ML VIAL SQ SCH ×2 (09:58→21:52)
[2019-06-03] MEDS: TIMOLOL 0.25% OPHTHALMIC SOL 5 ML BOTTLE OU SCH ×2 (10:03→21:58)
--- NOTE | 2019-06-03 10:55 | PN ---
Progress Note, Physician History of Present Illness: Seen and examined at the bedside awake and alert offers no acute complaints denies any fever, chills, sob, cough, abd pain, N/V/D making urine no swelling - Current Medication List Current Medications: Active Medications Acetaminophen (Tylenol -) 650 mg PO Q6H PRN PRN Reason: PAIN LEVEL 1 - 3 Amlodipine Besylate (Norvasc -) 5 mg PO [facility] Last Admin: 06/02/19 21:39 Dose: 5 mg Documented by: Gabapentin (Neurontin -) 100 mg PO [facility] Last Admin: 06/02/19 21:36 Dose: 100 mg Documented by: Heparin Sodium (Porcine) (Heparin -) 5,000 unit SQ BID [facility] Last Admin: 06/03/19 09:58 Dose: 5,000 unit Documented by: Piperacillin Sod/Tazobactam (Sod 2.25 gm/ Dextrose) 50 mls @ 100 mls/hr IVPB Q8H-IV [facility]; Protocol Last Admin: 06/03/19 09:58 Dose: 100 mls/hr Documented by: Insulin Aspart (Novolog Vial Sliding Scale -) 1 vial SQ [facility]; Protocol Last Admin: 06/03/19 06:47 Dose: Not Given Documented by: Latanoprost (Xalatan 0.005% Eye Drops -) 1 drop OU [facility] Last Admin: 06/02/19 21:41 Dose: 1 drop Documented by: Oxycodone HCl (Roxicodone -) 5 mg PO Q6H PRN PRN Reason: PAIN LEVEL 4 - 6 Last Admin: 06/03/19 09:55 Dose: 5 mg Documented by: Oxycodone HCl (Roxicodone -) 10 mg PO Q6H PRN PRN Reason: PAIN LEVEL 7 - 10 Last Admin: 06/01/19 18:33 Dose: 10 mg Documented by: Sodium Zirconium Cyclosilicate (Lokelma) 10 gm PO DAILY [facility] Last Admin: 06/03/19 09:56 Dose: 10 gm Documented by: Tamsulosin HCl (Flomax -) 0.4 mg PO [facility] Last Admin: 06/02/19 21:39 Dose: 0.4 mg Documented by: Timolol Maleate (Timoptic 0.25%) 1 drop OU BID [facility] Last Admin: 06/03/19 10:03 Dose: 1 drop Documented by: - Objective Vital Signs: Vital Signs Temperature 98.8 F 06/03/19 04:00 Pulse Rate 78 06/03/19 04:00 Respiratory Rate 18 06/03/19 04:00 Blood Pressure 100/56 L 06/03/19 04:00 O2 Sat by Pulse Oximetry (%) 100 06/02/19 20:33 Constitutional: Yes: No Distress, Calm Eyes: Yes: Conjunctiva Clear HENT: Yes: Atraumatic, Normocephalic Neck: Yes: Supple Cardiovascular: Yes: Regular Rate and Rhythm Respiratory: Yes: Regular, CTA Bilaterally Gastrointestinal: Yes: Normal Bowel Sounds, Soft. No: Tenderness Extremities: No: Cold, Cool, Cyanosis Edema: Yes Edema: LLE: 1+ Neurological: Yes: Alert, Oriented Labs: CBC, BMP 06/03/19 07:50 06/03/19 07:50 INR, PTT INR 1.67 (0.82-1.09) H 06/02/19 07:25 Assessment/Plan 68 year old gentleman with history of CKD stage 5, hypertension, DM, PVD, GERD, chronic anemia, peripheral neuropathy who presented from home with non-healing LE ulcer and admitted for suspected osteomylitis and noted to have elevated BUN/Cr and potassium. 1. Chronic kidney disease stage 5 2. Hyperkalemia 3. LE ulcer 4. Osteomylitis 5. Hypertension 6. DM 7. Peripheral neuropathy 8. Chronic Anemia 9. Metabolic acidosis 10. iron deficiency Renal function stable. Despite low eGFR there is no emergent indication for dialysis at this time Continue Renal diet Aviod NSAIDs for pain control, avoid IV contrast exposure dose all meds for CrCl ~10 continue Lokelma daily for management of hyperkalemia start sodium bicarbonate 650mg BID for metabolic acidosis Give Epogen 51174 units SC for anemia start oral iron holding off IV iron given active infection Holding ARB given hyperkalemia and low eGFR to get 2L of NS over 24 hours Abx as per ID wound care Thank you Will follow Marvin Rosales DO
[2019-06-03] MEDS: SODIUM BICARBONATE 650 MG TABLET PO SCH ×2 (11:24→21:51)
[2019-06-03] MEDS: FERROUS SO4 325 MG TABLET (FP) PO SCH ×2 (11:24→17:14)
[2019-06-03] MEDS ORDERED: EPOETIN ALFA 20,000 UNIT/1 ML VIAL SQ ONE (12:00)
--- NOTE | 2019-06-03 13:11 | PN ---
Progress Note, Physician History of Present Illness: stable no new issues - Current Medication List Current Medications: Active Medications Acetaminophen (Tylenol -) 650 mg PO Q6H PRN PRN Reason: PAIN LEVEL 1 - 3 Amlodipine Besylate (Norvasc -) 5 mg PO [facility] Last Admin: 06/02/19 21:39 Dose: 5 mg Documented by: Ferrous Sulfate (Feosol -) 325 mg PO TIDCM [facility] Last Admin: 06/03/19 11:24 Dose: 325 mg Documented by: Gabapentin (Neurontin -) 100 mg PO [facility] Last Admin: 06/02/19 21:36 Dose: 100 mg Documented by: Heparin Sodium (Porcine) (Heparin -) 5,000 unit SQ BID [facility] Last Admin: 06/03/19 09:58 Dose: 5,000 unit Documented by: Piperacillin Sod/Tazobactam (Sod 2.25 gm/ Dextrose) 50 mls @ 100 mls/hr IVPB Q8H-IV [facility]; Protocol Last Admin: 06/03/19 09:58 Dose: 100 mls/hr Documented by: Insulin Aspart (Novolog Vial Sliding Scale -) 1 vial SQ [facility]; Protocol Last Admin: 06/03/19 11:18 Dose: 2 units Documented by: Latanoprost (Xalatan 0.005% Eye Drops -) 1 drop OU [facility] Last Admin: 06/02/19 21:41 Dose: 1 drop Documented by: Oxycodone HCl (Roxicodone -) 5 mg PO Q6H PRN PRN Reason: PAIN LEVEL 4 - 6 Last Admin: 06/03/19 09:55 Dose: 5 mg Documented by: Oxycodone HCl (Roxicodone -) 10 mg PO Q6H PRN PRN Reason: PAIN LEVEL 7 - 10 Last Admin: 06/01/19 18:33 Dose: 10 mg Documented by: Sodium Bicarbonate (Sodium Bicarbonate -) 650 mg PO BID [facility] Last Admin: 06/03/19 11:24 Dose: 650 mg Documented by: Sodium Zirconium Cyclosilicate (Lokelma) 10 gm PO DAILY [facility] Last Admin: 06/03/19 09:56 Dose: 10 gm Documented by: Tamsulosin HCl (Flomax -) 0.4 mg PO [facility] Last Admin: 06/02/19 21:39 Dose: 0.4 mg Documented by: Timolol Maleate (Timoptic 0.25%) 1 drop OU BID [facility] Last Admin: 06/03/19 10:03 Dose: 1 drop Documented by: - Objective Vital Signs: Vital Signs Temperature 98.8 F 06/03/19 04:00 Pulse Rate 96 H 06/03/19 10:00 Respiratory Rate 18 06/03/19 10:00 Blood Pressure 126/60 06/03/19 10:00 O2 Sat by Pulse Oximetry (%) 98 06/03/19 09:00 Constitutional: Yes: No Distress, Calm Cardiovascular: Yes: S1, S2 Respiratory: Yes: Regular, CTA Bilaterally Gastrointestinal: Yes: Normal Bowel Sounds, Soft Musculoskeletal: Yes: WNL Extremities: Yes: Other Wound/Incision: Yes: Dressing Dry and Intact Neurological: Yes: Alert, Oriented Psychiatric: Yes: Alert, Oriented Labs: CBC, BMP 06/03/19 07:50 06/03/19 07:50 INR, PTT INR 1.67 (0.82-1.09) H 06/02/19 07:25 Assessment/Plan CKD stage 4 due to type 2 diabetes mellitus Code(s): E11.22 - TYPE 2 DIABETES MELLITUS W DIABETIC CHRONIC KIDNEY DISEASE; N18.4 - CHRONIC KIDNEY DISEASE, STAGE 4 (SEVERE) (3) HTN (hypertension) Code(s): I10 - ESSENTIAL (PRIMARY) HYPERTENSION (4) T2DM (type 2 diabetes mellitus) Code(s): E11.9 - TYPE 2 DIABETES MELLITUS WITHOUT COMPLICATIONS Qualifiers: Diabetes mellitus complication status: with neurologic complications Diabetes mellitus complication detail: with polyneuropathy (5) Wound infection Code(s): T14.8XXA - OTHER INJURY OF UNSPECIFIED BODY REGION, INITIAL ENCOUNTER; L08.9 - LOCAL INFECTION OF THE SKIN AND SUBCUTANEOUS TISSUE, UNSP (6) Diabetic foot ulcer Code(s): E11.621 - TYPE 2 DIABETES MELLITUS WITH FOOT ULCER; L97.509 - NON- PRESSURE CHRONIC ULCER OTH PRT UNSP FOOT W UNSP SEVERITY Qualifiers: Diabetic foot ulcer location: heel Diabetes mellitus type: other specified (including NICHO) Laterality: left Non-pressure ulcer stage: with other severity Qualified Code(s): E13.621 - Other specified diabetes mellitus with foot ulcer; L97.428 - Non-pressure chronic ulcer of left heel and midfoot with other specified severity 7 osteo of the foot/heel plan continue current mgmt will need abx for 6 weeks wound care rest as per the team
[2019-06-03] MEDS: GABAPENTIN 100 MG CAPSULE PO SCH (21:51)
[2019-06-03] MEDS: TAMSULOSIN HCL 0.4 MG CAP PO SCH (21:51)
[2019-06-03] MEDS: LATANOPROST 0.005% OPHTH SOLN 2.5ML BOTTLE OU SCH (21:58)
[2019-06-04] MEDS: amLODIPine BESYLATE 5 MG TABLET (FP) PO SCH (00:19)
[2019-06-04] MEDS: oxyCODONE HCL 5 MG TABLET PO PRN ×2 (00:23→10:45)
[2019-06-04] MEDS ORDERED: PIPERACILLIN/TAZOBACTAM 2.25 GM VIAL IVPB ONE ×2 (00:35→09:37)
[2019-06-04] MEDS ORDERED: DEXTROSE 5%-WATER - 50 ML IVPB ONE ×2 (00:35→09:37)
[2019-06-04] MEDS: PIPERACILLIN/TAZOB 2.25 GM 2.25 GM in DEXTROSE 5%-WATER - 50 ML IVPB SCH ×2 (02:33→09:49)
[2019-06-04] MEDS: INSULIN SLIDING SCALE (NOVOLOG) 1 VIAL SQ SCH ×2 (06:40→12:13)
[2019-06-04 09:08] LABS: BLOOD UREA NITROGEN 48.4 mg/dL (7-18); CALCIUM 7.7 mg/dL (8.5-10.1); CREATININE 4.7 mg/dL (0.55-1.3); MAGNESIUM 1.9 mg/dL (1.8-2.4); PHOSPHOROUS 4.9 mg/dL (2.5-4.9); POTASSIUM 4.6 mmol/L (3.5-5.1)
[2019-06-04] MEDS ORDERED: PT OWN MED DRAWER 7, Y5N ONE ×2 (09:37→09:57)
[2019-06-04] MEDS: HEPARIN NA (PORCINE) 5,000 UNITS/ML 1ML VIAL SQ SCH (09:49)
[2019-06-04] MEDS: FERROUS SO4 325 MG TABLET (FP) PO SCH ×2 (09:49→12:12)
[2019-06-04] MEDS: SODIUM BICARBONATE 650 MG TABLET PO SCH (09:49)
[2019-06-04] MEDS: TIMOLOL 0.25% OPHTHALMIC SOL 5 ML BOTTLE OU SCH (09:50)
[2019-06-04] MEDS: SODIUM ZIRCONIUM CYCLOSILICATE (LOKELMA) 5 GM PACKET PO SCH (09:50)
--- NOTE | 2019-06-04 10:25 | DS ---
Physical Exam: SUBJECTIVE: Patient seen and examined OBJECTIVE: Vital Signs Period Temp Pulse Resp BP Sys/Dudley Pulse Ox Last 24 Hr 98.4 F-99.8 F 81-98 18-20 101-133/50-72 99 PHYSICAL EXAM GENERAL: The patient is awake, alert, and fully oriented, in no acute distress. HEAD: Normal with no signs of trauma. EYES: PERRL, extraocular movements intact, sclera anicteric, conjunctiva clear. ENT: Ears normal, nares patent, oropharynx clear without exudates, moist mucous membranes. NECK: Trachea midline, full range of motion, supple. LUNGS: Breath sounds equal, clear to auscultation bilaterally, no wheezes, no crackles, no accessory muscle use. HEART: Regular rate and rhythm, S1, S2 without murmur, rub or gallop. ABDOMEN: Soft, nontender, nondistended, normoactive bowel sounds, no guarding, no rebound, no hepatosplenomegaly, no masses. EXTREMITIES: 2+ pulses, warm, well-perfused, no edema. NEUROLOGICAL: Cranial nerves II through XII grossly intact. Normal speech, gait not observed. PSYCH: Normal mood, normal affect. SKIN: Warm, dry, normal turgor, no rashes or lesions noted. LABS Laboratory Results - last 24 hr 06/03/19 06/03/19 06/03/19 11:17 16:40 20:54 Sodium Potassium Chloride Carbon Dioxide Anion Gap BUN Creatinine Est GFR (CKD-EPI)AfAm Est GFR (CKD-EPI)NonAf POC Glucometer 153 146 162 Random Glucose Calcium Phosphorus Magnesium 06/04/19 06/04/19 06:38 07:24 Sodium 135 L Potassium 4.6 Chloride 106 Carbon Dioxide 18 L Anion Gap 11 BUN 48.4 H Creatinine 4.7 H Est GFR (CKD-EPI)AfAm 13.74 Est GFR (CKD-EPI)NonAf 11.85 POC Glucometer 99 Random Glucose 93 Calcium 7.7 L Phosphorus 4.9 Magnesium 1.9 HOSPITAL COURSE: Date of Admission:06/01/19 Date of Discharge: 06/04/19 Discharge Summary Problems reviewed: Yes Reason For Visit: DIABETIC FOOT ULCER Current Active Problems Diabetic foot ulcer (Acute) Osteomyelitis (Acute) Prophylactic measure (Acute) Condition: Fair - Instructions Diet, Activity, Other Instructions: Patient to be discharged to [facility] for [address] Kat Please hold Valsartan/ARB for CKD Referrals: Mina Paz MD [Primary Care Provider] - Disposition: LONGTERM FACILITY - Home Medications Comprehensive Discharge Medication List: Ambulatory Orders Gabapentin 100 mg PO HS 10/05/17 Tamsulosin HCl 0.4 mg PO HS 10/05/17 Latanoprost/Pf [Latanoprost 0.005% Eye Drop] 1 drop OU HS 10/26/17 Timolol 0.25% [Timoptic 0.25%] 1 drop OU BID 10/26/17 Amlodipine Besylate [Norvasc -] 5 mg PO HS 01/07/18 Brinzolamide/Brimonidine Tart [Simbrinza 1%-0.2% Eye Drops] 1 drop OU BID 04/27/19 Acetaminophen [Tylenol .Regular Strength -] 650 mg PO Q6H PRN tablet 06/04/19 Ferrous Sulfate [Feosol] 325 mg PO TIDCM ud 06/04/19 Heparin - 5,000 unit SQ BID vial 06/04/19 Insulin Sliding Scale [Novolog Vial Sliding Scale -] 1 vial SQ ACHS units 06/04/19 Latanoprost 0.005% Eye Drops [Xalatan 0.005% Eye Drops -] 1 drop OU HS drops 06/04/19 Piperacillin/Tazob 2.25 gm [Zosyn -] 2.25 gm IVPB Q8H-IV vial 06/04/19 Sodium Bicarbonate - 650 mg PO BID tablet 06/04/19 Sodium Zirconium Cyclosilicate [Lokelma] 10 gm PO DAILY packet 06/04/19 Problem List - Problems (1) Wound infection Code(s): T14.8XXA - OTHER INJURY OF UNSPECIFIED BODY REGION, INITIAL ENCOUNTER; L08.9 - LOCAL INFECTION OF THE SKIN AND SUBCUTANEOUS TISSUE, UNSP (2) Diabetic foot ulcer Code(s): E11.621 - TYPE 2 DIABETES MELLITUS WITH FOOT ULCER; L97.509 - NON- PRESSURE CHRONIC ULCER OTH PRT UNSP FOOT W UNSP SEVERITY Qualifiers: Diabetic foot ulcer location: heel Diabetes mellitus type: other specified (including NICHO) Laterality: left Non-pressure ulcer stage: with other severity Qualified Code(s): E13.621 - Other specified diabetes mellitus with foot ulcer; L97.428 - Non-pressure chronic ulcer of left heel and midfoot with other specified severity (3) Acute on chronic kidney failure Code(s): N17.9 - ACUTE KIDNEY FAILURE, UNSPECIFIED; N18.9 - CHRONIC KIDNEY DISEASE, UNSPECIFIED Qualifiers: Chronic kidney disease stage: stage 4 (severe) (4) Anemia Code(s): D64.9 - ANEMIA, UNSPECIFIED Qualifiers: Anemia type: due to chronic kidney disease Chronic kidney disease stage: stage 4 (severe) Qualified Code(s): N18.4 - Chronic kidney disease, stage 4 (severe); D63.1 - Anemia in chronic kidney disease (5) HTN (hypertension) Code(s): I10 - ESSENTIAL (PRIMARY) HYPERTENSION (6) Hyperkalemia Code(s): E87.5 - HYPERKALEMIA (7) Osteomyelitis Code(s): M86.9 - OSTEOMYELITIS, UNSPECIFIED (8) T2DM (type 2 diabetes mellitus) Code(s): E11.9 - TYPE 2 DIABETES MELLITUS WITHOUT COMPLICATIONS Qualifiers: Diabetes mellitus complication status: with neurologic complications Diabetes mellitus complication detail: with polyneuropathy (9) Prophylactic measure Code(s): Z29.9 - ENCOUNTER FOR PROPHYLACTIC MEASURES, UNSPECIFIED - Discharge Referral Referred to [facility] No
--- NOTE | 2019-06-04 11:53 | PN ---
Progress Note, Physician Chief Complaint: CKD stage 5 History of Present Illness: Seen and examined at the bedside awake and alert offers no acute complaints denies any fever, chills, sob, cough, abd pain, N/V/D tolerating diet making urine no swelling - Current Medication List Current Medications: Active Medications Acetaminophen (Tylenol -) 650 mg PO Q6H PRN PRN Reason: PAIN LEVEL 1 - 3 Amlodipine Besylate (Norvasc -) 5 mg PO [facility] Last Admin: 06/04/19 00:19 Dose: Not Given Documented by: Ferrous Sulfate (Feosol -) 325 mg PO TIDCM [facility] Last Admin: 06/04/19 09:49 Dose: 325 mg Documented by: Gabapentin (Neurontin -) 100 mg PO [facility] Last Admin: 06/03/19 21:51 Dose: 100 mg Documented by: Heparin Sodium (Porcine) (Heparin -) 5,000 unit SQ BID [facility] Last Admin: 06/04/19 09:49 Dose: 5,000 unit Documented by: Piperacillin Sod/Tazobactam (Sod 2.25 gm/ Dextrose) 50 mls @ 100 mls/hr IVPB Q8H-IV [facility]; Protocol Last Admin: 06/04/19 09:49 Dose: 100 mls/hr Documented by: Insulin Aspart (Novolog Vial Sliding Scale -) 1 vial SQ ACHS [facility]; Protocol Last Admin: 06/04/19 06:40 Dose: Not Given Documented by: Latanoprost (Xalatan 0.005% Eye Drops -) 1 drop OU [facility] Last Admin: 06/03/19 21:58 Dose: 1 drop Documented by: Oxycodone HCl (Roxicodone -) 5 mg PO Q6H PRN PRN Reason: PAIN LEVEL 4 - 6 Last Admin: 06/03/19 09:55 Dose: 5 mg Documented by: Oxycodone HCl (Roxicodone -) 10 mg PO Q6H PRN PRN Reason: PAIN LEVEL 7 - 10 Last Admin: 06/04/19 10:45 Dose: 10 mg Documented by: Sodium Bicarbonate (Sodium Bicarbonate -) 650 mg PO BID [facility] Last Admin: 06/04/19 09:49 Dose: 650 mg Documented by: Sodium Zirconium Cyclosilicate (Lokelma) 10 gm PO DAILY [facility] Last Admin: 06/04/19 09:50 Dose: 10 gm Documented by: Tamsulosin HCl (Flomax -) 0.4 mg PO HS [facility] Last Admin: 06/03/19 21:51 Dose: 0.4 mg Documented by: Timolol Maleate (Timoptic 0.25%) 1 drop OU BID [facility] Last Admin: 06/04/19 09:50 Dose: 1 drop Documented by: - Objective Vital Signs: Vital Signs Temperature 98.4 F 06/04/19 10:00 Pulse Rate 98 H 06/04/19 10:00 Respiratory Rate 18 06/04/19 10:00 Blood Pressure 120/68 06/04/19 10:00 O2 Sat by Pulse Oximetry (%) 99 06/03/19 21:00 Constitutional: Yes: No Distress, Calm HENT: Yes: Atraumatic Neck: Yes: Supple Cardiovascular: Yes: Regular Rate and Rhythm Respiratory: Yes: Regular, CTA Bilaterally Gastrointestinal: Yes: Normal Bowel Sounds, Soft Edema: No Neurological: Yes: Alert, Oriented Labs: CBC, BMP 06/03/19 07:50 06/04/19 07:24 INR, PTT INR 1.67 (0.82-1.09) H 06/02/19 07:25 Assessment/Plan 68 year old gentleman with history of CKD stage 5, hypertension, DM, PVD, GERD, chronic anemia, peripheral neuropathy who presented from home with non-healing LE ulcer and admitted for suspected osteomylitis and noted to have elevated BUN/Cr and potassium. 1. Chronic kidney disease stage 5 2. Hyperkalemia 3. LE ulcer 4. Osteomylitis 5. Hypertension 6. DM 7. Peripheral neuropathy 8. Chronic Anemia 9. Metabolic acidosis 10. iron deficiency Cr slowly trending up, change in eGFR not significant. Despite low eGFR there is no emergent indication for dialysis at this time Continue Renal diet. Aviod NSAIDs for pain control, avoid IV contrast exposure dose all meds for CrCl ~10 continue Lokelma daily for management of hyperkalemia continue sodium bicarbonate 650mg BID for metabolic acidosis likely will need additional ALYSSA for anemia, can get in office when he follows up continue oral iron holding off IV iron given active infection Holding ARB given hyperkalemia and low eGFR to get 2L of NS over 24 hours Abx as per ID wound care Thank you Will follow Marvin Rosales DO
--- NOTE | 2019-06-04 12:02 | CONSULT ---
Consult Consult Specialty:: Podiatry, Ritesh Peguero DPM Reason for Consultation:: Ulceration chronic with osteomyelitis of the left plantar calcaneus - History of Present Illness Chief Complaint: Wound inferior to the left heel that has been present for approximately 8 years History of Present Illness: Left plantar heel wound has been present for approximately 8 years and has undergone alternating periods of treatment and non-treatment. Since January of 2019 patient has been under my care and has been treated at the Wound Center at [facility] and the Wound Healing Center at [facility]. Diagnostics have included X-ray, MRI, and various blood and medical evaluations by the patient's PCP. Treatments have included 2 trips to the operating room for excision of the wound, power levage of the wound, Skin advancement flap to partially cover the wound, application of bone marrow concentrate to the wound, application of amnionic wound healing products to the wound, Oral antibiotics, Aperture Padding, Total Contact Casting, and weekly or biweekly wound care visits. 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 History of Recent Travel: No Home Medications - Allergies Allergies/Adverse Reactions: Allergies Allergy/AdvReac Type Severity Reaction Status Date / Time No Known Allergies Allergy Verified 06/01/19 08:59 - Home Medications Home Medications: Ambulatory Orders Gabapentin 100 mg PO HS 10/05/17 Tamsulosin HCl 0.4 mg PO HS 10/05/17 Latanoprost/Pf [Latanoprost 0.005% Eye Drop] 1 drop OU HS 10/26/17 Timolol 0.25% [Timoptic 0.25%] 1 drop OU BID 10/26/17 Amlodipine Besylate [Norvasc -] 5 mg PO HS 01/07/18 Brinzolamide/Brimonidine Tart [Simbrinza 1%-0.2% Eye Drops] 1 drop OU BID 04/27/19 Acetaminophen [Tylenol .Regular Strength -] 650 mg PO Q6H PRN tablet 06/04/19 Ferrous Sulfate [Feosol] 325 mg PO TIDCM ud 06/04/19 Heparin - 5,000 unit SQ BID vial 06/04/19 Insulin Sliding Scale [Novolog Vial Sliding Scale -] 1 vial SQ ACHS units 06/04/19 Latanoprost 0.005% Eye Drops [Xalatan 0.005% Eye Drops -] 1 drop OU HS drops 06/04/19 Piperacillin/Tazob 2.25 gm [Zosyn -] 2.25 gm IVPB Q8H-IV vial 06/04/19 Sodium Bicarbonate - 650 mg PO BID tablet 06/04/19 Sodium Zirconium Cyclosilicate [Lokelma] 10 gm PO DAILY packet 06/04/19 Physical Exam Vital Signs: Vital Signs Temperature 98.4 F 06/04/19 10:00 Pulse Rate 98 H 06/04/19 10:00 Respiratory Rate 18 06/04/19 10:00 Blood Pressure 120/68 06/04/19 10:00 O2 Sat by Pulse Oximetry (%) 99 06/03/19 21:00 Edema: No Peripheral Pulses WNL: Yes (pedal pulses are palpable +2/4 bilaterally and skin is pink and well hydrat) Wound/Incision: Yes: Other (Plantar ulcer left heel is clean with chronic inflammatory tissue in the base and no sign of erythema, edema, necrosis, drainage or temperature increase.) Labs: CBC, BMP 06/03/19 07:50 06/04/19 07:24 Imaging - Results MRI: Other (MRI Image shows left calcaneal sub posterior facet fracture of the posterior tubercle with bone marrow edema on T2 image throughout the posterior tubercle, calcaneus, talus, distal tibia and mid tarsus. Wound extends to the periosteum of the plantar aspect of the calcaneus.) Assessment/Plan Assessment Chronic ulceration of the left plantar heel with chronic reactive periostitis and probable osteomyelitis that has been unresponsive to all prior methods of treatment. Off weight bearing, and IV antibiosis are indicated along with wound vac dressing are medically necessary to achieve wound healing if possible. It should be noted that posterior tubercle fracture is almost certainly caused by extension of infection into the bone. It should be noted that the extensive bone marrow edema throughout the tarsus is most likely caused by diabetic osteopathy and the secondary inflammation caused by pathology fracture of the posterior tubercle. Plan Admit to [facility]. Limit or restrict all weight bearing on the left heel. IV Antibiosis as ordered by Dr. Kat Wound Vac to the left heel with medium standard wound vac sponge, applied q2days at 125mmHg continuous. Patient should have weekly visits to the Wound Healing Center at [facility] on Saturday afternoons at 2:00 from the [facility] beginning on the first Saturday after hospital discharge.
--- NOTE | 2019-06-04 13:06 | DS ---
Physical Exam: SUBJECTIVE: Patient seen and examined at the bedside. in no acute distress. feels well and aware that he will be discharged to rehab today for continuation of iv antibiotics. OBJECTIVE: Patient is a 68 year old male with a significant past medical history of hypertension, CKD, w/ RUE fistula in place for possible HD in the near future, diabetes with multiple admissions for diabetic foot, osteomyelitis, s/p multiple debridement to L foot with wound VAC in place to left heel for the past 3 weeks, no recent antibiotics, seen by Dr Kat of ID several days ago and told that he should come to the ED for admission today as left heel wound appears infected. Patient for a port placement today for continuation of IV antibiotics (zosyn) for 6 weeks total. Orders to be provided by Dr. Kat. Vital Signs Period Temp Pulse Resp BP Sys/Dudley Pulse Ox Last 24 Hr 98.4 F-99.8 F 81-98 18-20 101-133/50-72 99 PHYSICAL EXAM GENERAL: The patient is awake, alert, and fully oriented, in no acute distress. HEAD: Normal with no signs of trauma. EYES: PERRL, extraocular movements intact, sclera anicteric, conjunctiva clear. No ptosis. ENT: Ears normal, nares patent, oropharynx clear without exudates, moist mucous membranes. NECK: Trachea midline, full range of motion, supple. LUNGS: Breath sounds equal, clear to auscultation bilaterally, no wheezes. tolerating room patti ABDOMEN: Soft, nontender, nondistended, normoactive bowel sounds, no guarding, no rebound, no hepatosplenomegaly, no masses. EXTREMITIES: left lower ext edema from romero to foot, non pitting + diabetic foot ulcer - negative for dvt NEUROLOGICAL: Normal speech, gait not observed. PSYCH: Normal mood, normal affect. SKIN: Warm, dry, normal turgor, no rashes or lesions noted LABS Laboratory Results - last 24 hr 06/03/19 06/03/19 06/04/19 16:40 20:54 06:38 Sodium Potassium Chloride Carbon Dioxide Anion Gap BUN Creatinine Est GFR (CKD-EPI)AfAm Est GFR (CKD-EPI)NonAf POC Glucometer 146 162 99 Random Glucose Calcium Phosphorus Magnesium 06/04/19 06/04/19 07:24 12:11 Sodium 135 L Potassium 4.6 Chloride 106 Carbon Dioxide 18 L Anion Gap 11 BUN 48.4 H Creatinine 4.7 H Est GFR (CKD-EPI)AfAm 13.74 Est GFR (CKD-EPI)NonAf 11.85 POC Glucometer 137 Random Glucose 93 Calcium 7.7 L Phosphorus 4.9 Magnesium 1.9 HOSPITAL COURSE: Date of Admission:06/01/19 Date of Discharge: 06/04/19 Minutes to complete discharge: 45 Discharge Summary Problems reviewed: Yes Reason For Visit: DIABETIC FOOT ULCER Current Active Problems Diabetic foot ulcer (Acute) Osteomyelitis (Acute) Prophylactic measure (Acute) Condition: Fair - Instructions Diet, Activity, Other Instructions: Patient to be discharged to [facility] for [address] Kat Please hold Valsartan/ARB for CKD Referrals: Mina Paz MD [Primary Care Provider] - Disposition: SNF FACILITY - Home Medications Comprehensive Discharge Medication List: Ambulatory Orders Gabapentin 100 mg PO HS 10/05/17 Tamsulosin HCl 0.4 mg PO HS 10/05/17 Latanoprost/Pf [Latanoprost 0.005% Eye Drop] 1 drop OU HS 10/26/17 Timolol 0.25% [Timoptic 0.25%] 1 drop OU BID 10/26/17 Amlodipine Besylate [Norvasc -] 5 mg PO HS 01/07/18 Brinzolamide/Brimonidine Tart [Simbrinza 1%-0.2% Eye Drops] 1 drop OU BID 04/27/19 Acetaminophen [Tylenol .Regular Strength -] 650 mg PO Q6H PRN tablet 06/04/19 Ferrous Sulfate [Feosol] 325 mg PO TIDCM ud 06/04/19 Heparin - 5,000 unit SQ BID vial 06/04/19 Insulin Sliding Scale [Novolog Vial Sliding Scale -] 1 vial SQ ACHS units 06/04/19 Latanoprost 0.005% Eye Drops [Xalatan 0.005% Eye Drops -] 1 drop OU HS drops 06/04/19 Piperacillin/Tazob 2.25 gm [Zosyn -] 2.25 gm IVPB Q8H-IV vial 06/04/19 Sodium Bicarbonate - 650 mg PO BID tablet 06/04/19 Sodium Zirconium Cyclosilicate [Lokelma] 10 gm PO DAILY packet 06/04/19 Problem List - Problems (1) Wound infection Assessment/Plan: per ID patient will need 6 weeks of Zosyn for left foot wound infection/osteomyelitis Code(s): T14.8XXA - OTHER INJURY OF UNSPECIFIED BODY REGION, INITIAL ENCOUNTER; L08.9 - LOCAL INFECTION OF THE SKIN AND SUBCUTANEOUS TISSUE, UNSP (2) Diabetic foot ulcer Assessment/Plan: chronic wounds to left dousum foot per MRI, patient likely has osteomyelitis and as per ID will need approximately 6 weeks of IV antibiotics (zosyn) to be administered via picc line at [place] [place] following Code(s): E11.621 - TYPE 2 DIABETES MELLITUS WITH FOOT ULCER; L97.509 - NON- PRESSURE CHRONIC ULCER OTH PRT UNSP FOOT W UNSP SEVERITY Qualifiers: Diabetic foot ulcer location: heel Diabetes mellitus type: other specified (including NICHO) Laterality: left Non-pressure ulcer stage: with other severity Qualified Code(s): E13.621 - Other specified diabetes mellitus with foot ulcer; L97.428 - Non-pressure chronic ulcer of left heel and midfoot with other specified severity (3) Acute on chronic kidney failure Assessment/Plan: Cr 4.2. not on HD, but AVF in place avoid nephrotoxic agents Dr. Rosales following Code(s): N17.9 - ACUTE KIDNEY FAILURE, UNSPECIFIED; N18.9 - CHRONIC KIDNEY DISEASE, UNSPECIFIED Qualifiers: Chronic kidney disease stage: stage 4 (severe) (4) Anemia Assessment/Plan: Given epogen and to be started on oral iron therapy Code(s): D64.9 - ANEMIA, UNSPECIFIED Qualifiers: Anemia type: due to chronic kidney disease Chronic kidney disease stage: stage 4 (severe) Qualified Code(s): N18.4 - Chronic kidney disease, stage 4 (severe); D63.1 - Anemia in chronic kidney disease (5) HTN (hypertension) Assessment/Plan: on norvasc, valsartan on hold for UMER Code(s): I10 - ESSENTIAL (PRIMARY) HYPERTENSION (6) Hyperkalemia Code(s): E87.5 - HYPERKALEMIA (7) Osteomyelitis Assessment/Plan: osteo of left foot/heel will need buttermaker continuous churn antibiotics Code(s): M86.9 - OSTEOMYELITIS, UNSPECIFIED (8) T2DM (type 2 diabetes mellitus) Assessment/Plan: novolog based on BGMs. Code(s): E11.9 - TYPE 2 DIABETES MELLITUS WITHOUT COMPLICATIONS Qualifiers: Diabetes mellitus complication status: with neurologic complications Diabetes mellitus complication detail: with polyneuropathy (9) Prophylactic measure Assessment/Plan: discharge to rehab Code(s): Z29.9 - ENCOUNTER FOR PROPHYLACTIC MEASURES, UNSPECIFIED This patient is new to me today: No Emergency Visit: Yes ED Registration Date: 06/01/19 Care time: The patient presented to the Emergency Department on the above date and was hospitalized for further evaluation of their emergent condition. Critical Care patient: No - Discharge Referral Referred to [facility] Med P.C.: No
--- NOTE | 2019-06-04 13:23 | PN ---
Progress Note, Physician History of Present Illness: stable no new issues for port placement - Current Medication List Current Medications: Active Medications Acetaminophen (Tylenol -) 650 mg PO Q6H PRN PRN Reason: PAIN LEVEL 1 - 3 Amlodipine Besylate (Norvasc -) 5 mg PO [facility] Last Admin: 06/04/19 00:19 Dose: Not Given Documented by: Ferrous Sulfate (Feosol -) 325 mg PO TIDCM [facility] Last Admin: 06/04/19 12:12 Dose: 325 mg Documented by: Gabapentin (Neurontin -) 100 mg PO [facility] Last Admin: 06/03/19 21:51 Dose: 100 mg Documented by: Heparin Sodium (Porcine) (Heparin -) 5,000 unit SQ BID [facility] Last Admin: 06/04/19 09:49 Dose: 5,000 unit Documented by: Piperacillin Sod/Tazobactam (Sod 2.25 gm/ Dextrose) 50 mls @ 100 mls/hr IVPB Q8H-IV [facility]; Protocol Last Admin: 06/04/19 09:49 Dose: 100 mls/hr Documented by: Insulin Aspart (Novolog Vial Sliding Scale -) 1 vial SQ [facility]; Protocol Last Admin: 06/04/19 12:13 Dose: Not Given Documented by: Latanoprost (Xalatan 0.005% Eye Drops -) 1 drop OU [facility] Last Admin: 06/03/19 21:58 Dose: 1 drop Documented by: Oxycodone HCl (Roxicodone -) 5 mg PO Q6H PRN PRN Reason: PAIN LEVEL 4 - 6 Last Admin: 06/03/19 09:55 Dose: 5 mg Documented by: Oxycodone HCl (Roxicodone -) 10 mg PO Q6H PRN PRN Reason: PAIN LEVEL 7 - 10 Last Admin: 06/04/19 10:45 Dose: 10 mg Documented by: Sodium Bicarbonate (Sodium Bicarbonate -) 650 mg PO BID [facility] Last Admin: 06/04/19 09:49 Dose: 650 mg Documented by: Sodium Zirconium Cyclosilicate (Lokelma) 10 gm PO DAILY [facility] Last Admin: 06/04/19 09:50 Dose: 10 gm Documented by: Tamsulosin HCl (Flomax -) 0.4 mg PO [facility] Last Admin: 06/03/19 21:51 Dose: 0.4 mg Documented by: Timolol Maleate (Timoptic 0.25%) 1 drop OU BID [facility] Last Admin: 06/04/19 09:50 Dose: 1 drop Documented by: - Objective Vital Signs: Vital Signs Temperature 98.4 F 06/04/19 10:00 Pulse Rate 98 H 06/04/19 10:00 Respiratory Rate 18 06/04/19 10:00 Blood Pressure 120/68 06/04/19 10:00 O2 Sat by Pulse Oximetry (%) 99 06/03/19 21:00 Constitutional: Yes: No Distress, Calm Cardiovascular: Yes: S1, S2 Respiratory: Yes: Regular, CTA Bilaterally Gastrointestinal: Yes: Normal Bowel Sounds, Soft Musculoskeletal: Yes: WNL Extremities: Yes: WNL Wound/Incision: Yes: Dressing Dry and Intact Neurological: Yes: Alert, Oriented Labs: CBC, BMP 06/03/19 07:50 06/04/19 07:24 INR, PTT INR 1.67 (0.82-1.09) H 06/02/19 07:25 Assessment/Plan CKD stage 4 due to type 2 diabetes mellitus Code(s): E11.22 - TYPE 2 DIABETES MELLITUS W DIABETIC CHRONIC KIDNEY DISEASE; N18.4 - CHRONIC KIDNEY DISEASE, STAGE 4 (SEVERE) (3) HTN (hypertension) Code(s): I10 - ESSENTIAL (PRIMARY) HYPERTENSION (4) T2DM (type 2 diabetes mellitus) Code(s): E11.9 - TYPE 2 DIABETES MELLITUS WITHOUT COMPLICATIONS Qualifiers: Diabetes mellitus complication status: with neurologic complications Diabetes mellitus complication detail: with polyneuropathy (5) Wound infection Code(s): T14.8XXA - OTHER INJURY OF UNSPECIFIED BODY REGION, INITIAL ENCOUNTER; L08.9 - LOCAL INFECTION OF THE SKIN AND SUBCUTANEOUS TISSUE, UNSP (6) Diabetic foot ulcer Code(s): E11.621 - TYPE 2 DIABETES MELLITUS WITH FOOT ULCER; L97.509 - NON- PRESSURE CHRONIC ULCER OTH PRT UNSP FOOT W UNSP SEVERITY Qualifiers: Diabetic foot ulcer location: heel Diabetes mellitus type: other specified (including NICHO) Laterality: left Non-pressure ulcer stage: with other severity Qualified Code(s): E13.621 - Other specified diabetes mellitus with foot ulcer; L97.428 - Non-pressure chronic ulcer of left heel and midfoot with other specified severity 7 osteo of the foot/heel plan continue current mgmt will need abx for 6 weeks wound care rest as per the team wound vac
[2019-06-04 15:53] VITALS: BP 112/68; PULSE 85; TEMP 98.8
== END 2019-06-04 16:51 | DRG 638 ==
LOC: SUPCPDRO 08:52 → JER 08:52 → JERBED 13:39 → J5S 15:58
PROVIDERS: ATTEND Nurse Practitioner Family
PROC: 02HV33Z Insertion of Infusion Device into Superior Vena Cava, Percutaneous Approach (ICD-10-PCS; principal; 2019-06-04)
PROC: B548ZZA Ultrasonography of Superior Vena Cava, Guidance (ICD-10-PCS; 2019-06-04)
DX: E11.69 Type 2 diabetes mellitus with other specified complication (principal); L97.428 Non-pressure chronic ulcer of left heel and midfoot with other specified severity; M86.9 Osteomyelitis, unspecified; E87.1 Hypo-osmolality and hyponatremia; E87.2 Acidosis; E11.621 Type 2 diabetes mellitus with foot ulcer; N40.0 Benign prostatic hyperplasia without lower urinary tract symptoms; E11.42 Type 2 diabetes mellitus with diabetic polyneuropathy; E87.5 Hyperkalemia; N17.9 Acute kidney failure, unspecified; K57.90 Diverticulosis of intestine, part unspecified, without perforation or abscess without bleeding; E11.319 Type 2 diabetes mellitus with unspecified diabetic retinopathy without macular edema; M54.5 Low back pain; D63.8 Anemia in other chronic diseases classified elsewhere; K22.70 Barrett's esophagus without dysplasia; K21.9 Gastro-esophageal reflux disease without esophagitis; I12.9 Hypertensive chronic kidney disease with stage 1 through stage 4 chronic kidney disease, or unspecified chronic kidney disease; E11.22 Type 2 diabetes mellitus with diabetic chronic kidney disease; N18.5 Chronic kidney disease, stage 5; D50.0 Iron deficiency anemia secondary to blood loss (chronic); L08.9 Local infection of the skin and subcutaneous tissue, unspecified
CPT/HCPCS: 36415; 36558; 71045-TC-FY; 73630-TC-LT; 73718-TC-LT; 77001-TC-FY; 80048; 80053; 82728; 82962; 83540; 83550; 83735; 84100; 84132; 85025; 85027; 85610; 85651; 86140; 86850; 86900; 86901; 93005; 93010; 93971-TC; 97116-GP; 97161-GP; 99285-25; C1751; G0277; J0885; J1644

== ENCOUNTER 2020-05-03 12:37 | Inpatient (IN) | payer OTHER ==
[2020-05-03] MEDS ORDERED: PIPERACILLIN/TAZOB 2.25 GM 2.25 GM in DEXTROSE 5%-WATER - 50 ML IVPB SCH (14:15)
[2020-05-03] MEDS ORDERED: PIPERACILLIN/TAZOB 2.25 GM 2.25 GM/50 ML BAG IVPB ONE (16:14)
[2020-05-03] MEDS: PIPERACILLIN/TAZOB 2.25 GM 2.25 GM in DEXTROSE 5%-WATER - 50 ML IVPB SCH (16:51)
[2020-05-03 17:04] LABS: BASO % 0.3 % (0-2.0); EOS % 0.9 % (0-4.5); HEMATOCRIT 30.3 % (35.4-49); HEMOGLOBIN 9.9 GM/dL (11.7-16.9); LYMPH % 9.9 % (8-40); MCH 27.5 pg (25.7-33.7); MCHC 32.8 g/dl (32.0-35.9); MEAN CELL VOLUME 83.7 fl (80-96); MEAN PLT VOLUME 8.2 fl (7.5-11.1); MONO % 6.5 % (3.8-10.2); NEUT % 82.4 % (42.8-82.8); PLATELET COUNT 467 K/MM3 (134-434); RBC 3.62 M/mm3 (4.00-5.60); RDW 15.4 % (11.9-15.9); WHITE BLOOD COUNT 18.6 K/mm3 (4.0-10.0)
[2020-05-03 17:23] LABS: INR 1.13 (0.83-1.09); PROTHROMBIN TIME (PATIENT) 13.8 SEC (9.7-13.0)
[2020-05-03 17:24] LABS: ALBUMIN 2.9 g/dl (3.4-5.0); BLOOD UREA NITROGEN 80.2 mg/dL (7-18); CALCIUM 8.9 mg/dL (8.5-10.1)
[2020-05-03 17:27] LABS: CREATININE 5.8 mg/dL (0.55-1.3)
[2020-05-03 17:29] LABS: BILIRUBIN,TOTAL 0.9 mg/dL (0.2-1); TOT PROT 7.3 g/dl (6.4-8.2)
[2020-05-03 18:07] LABS: ERYTHROCYTE SEDIMENTATION RATE 94 mm/hr (0-20)
[2020-05-03] MEDS ORDERED: INSULIN SLIDING SCALE (NOVOLOG) 1 VIAL SQ ONE (22:44)
[2020-05-03] MEDS: INSULIN SLIDING SCALE (NOVOLOG) 1 VIAL SQ SCH (22:59)
[2020-05-04] MEDS ORDERED: SODIUM CHLORIDE 1,000 ML IV SCH
[2020-05-04] MEDS: PIPERACILLIN/TAZOB 2.25 GM 2.25 GM in DEXTROSE 5%-WATER - 50 ML IVPB SCH ×4 (00:06→17:24)
[2020-05-04] MEDS ORDERED: PIPERACILLIN/TAZOB 2.25 GM 2.25 GM/50 ML BAG IVPB ONE (01:27)
[2020-05-04] MEDS ORDERED: oxyCODONE HCL 5 MG TABLET PO PRN (02:36)
[2020-05-04 05:27] VITALS: BMI 20.7
[2020-05-04] MEDS: INSULIN SLIDING SCALE (NOVOLOG) 1 VIAL SQ SCH ×4 (06:19→22:13)
[2020-05-04] MEDS ORDERED: VANCOMYCIN 1 GM in D5W (PRE-DOCKED) 1,000 MG/250 ML IVPB ONE (08:08)
[2020-05-04 09:04] LABS: BASO % 0.4 % (0-2.0); EOS % 1.6 % (0-4.5); HEMATOCRIT 28.3 % (35.4-49); HEMOGLOBIN 9.3 GM/dL (11.7-16.9); LYMPH % 13.8 % (8-40); MCH 27.5 pg (25.7-33.7); MEAN CELL VOLUME 83.3 fl (80-96); MEAN PLT VOLUME 8.1 fl (7.5-11.1); MONO % 7.1 % (3.8-10.2); NEUT % 77.1 % (42.8-82.8); PLATELET COUNT 423 K/MM3 (134-434); RDW 15.6 % (11.9-15.9); WHITE BLOOD COUNT 17.1 K/mm3 (4.0-10.0)
[2020-05-04 09:27] LABS: POTASSIUM 4.7 mmol/L (3.5-5.1)
[2020-05-04] MEDS ORDERED: PIPERACILLIN/TAZOBACTAM 2.25 GM VIAL IVPB ONE ×2 (09:30→16:53)
[2020-05-04] MEDS ORDERED: DEXTROSE 5%-WATER - 50 ML IVPB ONE ×2 (09:30→16:53)
[2020-05-04 09:35] LABS: ALBUMIN 2.4 g/dl (3.4-5.0); BLOOD UREA NITROGEN 85.6 mg/dL (7-18); CALCIUM 8.3 mg/dL (8.5-10.1); MAGNESIUM 2.4 mg/dL (1.8-2.4)
[2020-05-04 09:37] LABS: BILIRUBIN,TOTAL 0.8 mg/dL (0.2-1); TOT PROT 6.2 g/dl (6.4-8.2)
[2020-05-04 09:38] LABS: CREATININE 5.9 mg/dL (0.55-1.3); PHOSPHOROUS 5.2 mg/dL (2.5-4.9)
[2020-05-04 11:56] LABS: EPI CELLS >36 /uL (0-25.1); HYALINE CASTS 6 /uL (0-3.1); URINE APPEARANCE TURBID; URINE BACTERIA 47 /uL (0-1359); URINE BILIRUBIN NEGATIVE (NEGATIVE); URINE COLOR YELLOW; URINE GLUCOSE (UA) 1+ (NEGATIVE); URINE KETONE NEGATIVE (NEGATIVE); URINE LEUK ESTERASE 1+ (NEGATIVE); URINE NITRITE NEGATIVE (NEGATIVE); URINE PROTEIN 2+ (NEGATIVE); URINE RBC 11 /uL (0-23.9); URINE UROBILINOGEN 0.2 mg/dL (0.2-1.0); URINE WBC 205 /uL (0-25.8)
[2020-05-04] MEDS: KETOCONAZOLE 2% CREAM - 60GM TUBE TP SCH (11:59)
[2020-05-04] MEDS: SEVELAMER CARBONATE 800 MG TAB (FP) PO SCH ×2 (14:34→18:23)
[2020-05-04] MEDS ORDERED: PT OWN MED DRAWER 7, Y5N ONE (14:38)
[2020-05-04] MEDS: SODIUM BICARBONATE 325 MG TABLET PO SCH (17:23)
[2020-05-04] MEDS: amLODIPine BESYLATE 5 MG TABLET (FP) PO SCH (17:24)
[2020-05-04] MEDS: HEPARIN NA (PORCINE) 5,000 UNITS/ML 1ML VIAL SQ SCH (22:06)
[2020-05-04] MEDS: clonazePAM 0.5 MG TABLET PO SCH (22:07)
[2020-05-04] MEDS: ACETAMINOPHEN 325 MG TABLET (FP) PO PRN (22:07)
[2020-05-05] MEDS ORDERED: PIPERACILLIN/TAZOBACTAM 2.25 GM VIAL IVPB ONE ×3 (01:30→18:19)
[2020-05-05] MEDS ORDERED: DEXTROSE 5%-WATER - 50 ML IVPB ONE ×3 (01:31→18:19)
[2020-05-05] MEDS: PIPERACILLIN/TAZOB 2.25 GM 2.25 GM in DEXTROSE 5%-WATER - 50 ML IVPB SCH ×3 (01:42→18:36)
[2020-05-05] MEDS: HEPARIN NA (PORCINE) 5,000 UNITS/ML 1ML VIAL SQ SCH ×3 (06:13→22:14)
[2020-05-05] MEDS: clonazePAM 0.5 MG TABLET PO SCH ×3 (06:13→22:11)
[2020-05-05] MEDS: INSULIN SLIDING SCALE (NOVOLOG) 1 VIAL SQ SCH ×4 (06:21→22:11)
[2020-05-05 09:14] LABS: HEMATOCRIT 26.5 % (35.4-49); HEMOGLOBIN 8.8 GM/dL (11.7-16.9); MCH 27.9 pg (25.7-33.7); MCHC 33.4 g/dl (32.0-35.9); MEAN CELL VOLUME 83.6 fl (80-96); MEAN PLT VOLUME 8.2 fl (7.5-11.1); PLATELET COUNT 425 K/MM3 (134-434); RBC 3.17 M/mm3 (4.00-5.60); RDW 15.6 % (11.9-15.9); WHITE BLOOD COUNT 12.8 K/mm3 (4.0-10.0)
[2020-05-05 09:48] LABS: POTASSIUM 4.7 mmol/L (3.5-5.1)
[2020-05-05] MEDS ORDERED: amLODIPine BESYLATE 5 MG TABLET (FP) PO SCH (10:00)
[2020-05-05 10:06] LABS: ALBUMIN 2.1 g/dl (3.4-5.0); CALCIUM 8.1 mg/dL (8.5-10.1)
[2020-05-05 10:07] LABS: BLOOD UREA NITROGEN 80.8 mg/dL (7-18); MAGNESIUM 2.4 mg/dL (1.8-2.4)
[2020-05-05 10:10] LABS: BILIRUBIN,TOTAL 1.1 mg/dL (0.2-1); TOT PROT 5.9 g/dl (6.4-8.2)
[2020-05-05] MEDS ORDERED: PT OWN MED DRAWER 7, Y5N ONE (10:31)
[2020-05-05] MEDS: SEVELAMER CARBONATE 800 MG TAB (FP) PO SCH ×3 (10:39→18:37)
[2020-05-05] MEDS: GABAPENTIN 100 MG CAPSULE PO SCH (10:39)
[2020-05-05] MEDS: KETOCONAZOLE 2% CREAM - 60GM TUBE TP SCH (10:39)
[2020-05-05] MEDS: amLODIPine BESYLATE 5 MG TABLET (FP) PO SCH (10:40)
[2020-05-05] MEDS: SODIUM BICARBONATE 325 MG TABLET PO SCH ×2 (10:40→22:11)
[2020-05-05] MEDS: ACETAMINOPHEN 325 MG TABLET (FP) PO PRN (22:11)
[2020-05-06] MEDS ORDERED: PIPERACILLIN/TAZOBACTAM 2.25 GM VIAL IVPB ONE ×3 (02:22→17:08)
[2020-05-06] MEDS ORDERED: DEXTROSE 5%-WATER - 50 ML IVPB ONE ×3 (02:23→17:08)
[2020-05-06] MEDS: PIPERACILLIN/TAZOB 2.25 GM 2.25 GM in DEXTROSE 5%-WATER - 50 ML IVPB SCH ×3 (02:29→17:14)
[2020-05-06] MEDS: HEPARIN NA (PORCINE) 5,000 UNITS/ML 1ML VIAL SQ SCH ×3 (05:52→21:54)
[2020-05-06] MEDS: clonazePAM 0.5 MG TABLET PO SCH ×3 (05:53→21:54)
[2020-05-06] MEDS: INSULIN SLIDING SCALE (NOVOLOG) 1 VIAL SQ SCH ×4 (06:04→21:55)
[2020-05-06 08:06] LABS: BASO % 0.8 % (0-2.0); EOS % 3.7 % (0-4.5); HEMOGLOBIN 9.5 GM/dL (11.7-16.9); LYMPH % 16.6 % (8-40); MCHC 33.8 g/dl (32.0-35.9); MEAN CELL VOLUME 82.8 fl (80-96); MEAN PLT VOLUME 7.6 fl (7.5-11.1); MONO % 7.5 % (3.8-10.2); NEUT % 71.4 % (42.8-82.8); PLATELET COUNT 483 K/MM3 (134-434); RBC 3.38 M/mm3 (4.00-5.60); WHITE BLOOD COUNT 10.6 K/mm3 (4.0-10.0)
[2020-05-06 08:19] LABS: POTASSIUM 4.9 mmol/L (3.5-5.1)
[2020-05-06 08:23] LABS: ALBUMIN 2.1 g/dl (3.4-5.0); BLOOD UREA NITROGEN 84.2 mg/dL (7-18); CALCIUM 8.4 mg/dL (8.5-10.1)
[2020-05-06 08:24] LABS: MAGNESIUM 2.4 mg/dL (1.8-2.4)
[2020-05-06 08:27] LABS: CREATININE 6.1 mg/dL (0.55-1.3); PHOSPHOROUS 4.5 mg/dL (2.5-4.9)
[2020-05-06 08:28] LABS: BILIRUBIN,TOTAL 0.6 mg/dL (0.2-1); TOT PROT 6.4 g/dl (6.4-8.2)
[2020-05-06] MEDS: SEVELAMER CARBONATE 800 MG TAB (FP) PO SCH ×3 (09:56→17:21)
[2020-05-06] MEDS ORDERED: PT OWN MED DRAWER 7, Y5N ONE ×2 (10:50→21:08)
[2020-05-06] MEDS ORDERED: GABAPENTIN 100 MG CAPSULE PO SCH (11:00)
[2020-05-06] MEDS: GABAPENTIN 100 MG CAPSULE PO SCH (11:01)
[2020-05-06] MEDS: amLODIPine BESYLATE 5 MG TABLET (FP) PO SCH (11:01)
[2020-05-06] MEDS: SODIUM BICARBONATE 325 MG TABLET PO SCH ×2 (11:02→21:55)
[2020-05-06] MEDS: KETOCONAZOLE 2% CREAM - 60GM TUBE TP SCH (11:27)
[2020-05-06] MEDS: oxyCODONE HCL 10 MG SUSTAINED ACTING TABLET PO SCH ×2 (13:48→21:56)
[2020-05-06] MEDS ORDERED: EPOETIN ALFA-EPBX 20,000 UNIT/ML VIAL SQ ONE (18:22)
[2020-05-06] MEDS: PATIENT'S OWN MEDICATION (NON-FORMULARY) (Brinzolamide/Brimonidine Tart [Simbrinza 1%-0.2% OU SCH (18:30)
[2020-05-06] MEDS ORDERED: INSULIN (NOVOLOG) ASPART 100 UNITS/ML 10ML VIAL ONE (21:11)
[2020-05-06] MEDS: TIMOLOL MALEATE 0.25% GFS OPHTHALMIC SOLN 5 ML BOTTLE OU SCH (21:54)
[2020-05-06] MEDS: POLYETHYLENE GLYCOL 3350 119 GM BTL PO SCH (21:55)
[2020-05-06] MEDS: SENNOSIDES 8.6MG TABLET (FP) PO SCH (21:55)
[2020-05-06] MEDS: LIDOCAINE PATCH REMOVAL MC SCH (21:55)
[2020-05-07] MEDS ORDERED: DEXTROSE 5%-WATER - 50 ML IVPB ONE ×5 (01:31→23:59)
[2020-05-07] MEDS ORDERED: PIPERACILLIN/TAZOBACTAM 2.25 GM VIAL IVPB ONE ×5 (01:31→23:58)
[2020-05-07] MEDS: PIPERACILLIN/TAZOB 2.25 GM 2.25 GM in DEXTROSE 5%-WATER - 50 ML IVPB SCH ×3 (02:34→17:46)
[2020-05-07] MEDS: HEPARIN NA (PORCINE) 5,000 UNITS/ML 1ML VIAL SQ SCH ×3 (06:33→21:07)
[2020-05-07] MEDS: clonazePAM 0.5 MG TABLET PO SCH ×3 (06:33→21:08)
[2020-05-07] MEDS: INSULIN SLIDING SCALE (NOVOLOG) 1 VIAL SQ SCH ×3 (06:33→17:48)
[2020-05-07 08:04] LABS: BASO % 1.1 % (0-2.0); EOS % 4.2 % (0-4.5); HEMATOCRIT 29.4 % (35.4-49); HEMOGLOBIN 9.5 GM/dL (11.7-16.9); LYMPH % 20.6 % (8-40); MCH 27.3 pg (25.7-33.7); MCHC 32.2 g/dl (32.0-35.9); MEAN CELL VOLUME 84.8 fl (80-96); MEAN PLT VOLUME 7.8 fl (7.5-11.1); MONO % 10.5 % (3.8-10.2); NEUT % 63.6 % (42.8-82.8); PLATELET COUNT 461 K/MM3 (134-434); RBC 3.47 M/mm3 (4.00-5.60); RDW 15.9 % (11.9-15.9)
[2020-05-07 08:16] LABS: POTASSIUM 5.1 mmol/L (3.5-5.1)
[2020-05-07 08:18] LABS: CALCIUM 8.3 mg/dL (8.5-10.1)
[2020-05-07 08:19] LABS: ALBUMIN 2.1 g/dl (3.4-5.0); BLOOD UREA NITROGEN 76.9 mg/dL (7-18); MAGNESIUM 2.5 mg/dL (1.8-2.4)
[2020-05-07 08:22] LABS: CREATININE 6.2 mg/dL (0.55-1.3); PHOSPHOROUS 5.6 mg/dL (2.5-4.9)
[2020-05-07 08:24] LABS: BILIRUBIN,TOTAL 0.5 mg/dL (0.2-1); TOT PROT 6.3 g/dl (6.4-8.2)
[2020-05-07] MEDS: LIDOCAINE 5% TOPICAL PATCH TP SCH (10:00)
[2020-05-07] MEDS: PATIENT'S OWN MEDICATION (NON-FORMULARY) (Brinzolamide/Brimonidine Tart [Simbrinza 1%-0.2% OU SCH ×2 (10:01→11:34)
[2020-05-07] MEDS: SEVELAMER CARBONATE 800 MG TAB (FP) PO SCH ×3 (10:05→17:48)
[2020-05-07] MEDS: oxyCODONE HCL 10 MG SUSTAINED ACTING TABLET PO SCH ×2 (12:04→21:08)
[2020-05-07] MEDS: TIMOLOL MALEATE 0.25% GFS OPHTHALMIC SOLN 5 ML BOTTLE OU SCH (14:35)
[2020-05-07] MEDS: KETOCONAZOLE 2% CREAM - 60GM TUBE TP SCH (14:36)
[2020-05-07] MEDS ORDERED: PT OWN MED DRAWER 7, Y5N ONE (15:42)
[2020-05-07] MEDS: GABAPENTIN 100 MG CAPSULE PO SCH (17:47)
[2020-05-07] MEDS: POLYETHYLENE GLYCOL 3350 119 GM BTL PO SCH ×2 (17:47→21:08)
[2020-05-07] MEDS: amLODIPine BESYLATE 5 MG TABLET (FP) PO SCH (17:48)
[2020-05-07] MEDS: SODIUM BICARBONATE 325 MG TABLET PO SCH (17:50)
[2020-05-07] MEDS: LIDOCAINE PATCH REMOVAL MC SCH (21:08)
[2020-05-07] MEDS: SENNOSIDES 8.6MG TABLET (FP) PO SCH (21:09)
[2020-05-07] MEDS: SODIUM BICARBONATE 650 MG TABLET PO SCH (21:09)
[2020-05-08] MEDS: PIPERACILLIN/TAZOB 2.25 GM 2.25 GM in DEXTROSE 5%-WATER - 50 ML IVPB SCH ×3 (01:15→17:31)
[2020-05-08] MEDS: clonazePAM 0.5 MG TABLET PO SCH (06:10)
[2020-05-08] MEDS: INSULIN SLIDING SCALE (NOVOLOG) 1 VIAL SQ SCH ×3 (06:10→17:32)
[2020-05-08] MEDS: HEPARIN NA (PORCINE) 5,000 UNITS/ML 1ML VIAL SQ SCH ×2 (06:10→14:06)
[2020-05-08] MEDS ORDERED: DEXTROSE 5%-WATER - 50 ML IVPB ONE ×4 (08:58→22:55)
[2020-05-08] MEDS ORDERED: PIPERACILLIN/TAZOBACTAM 2.25 GM VIAL IVPB ONE ×4 (08:58→22:55)
[2020-05-08] MEDS ORDERED: PT OWN MED DRAWER 7, Y5N ONE (08:58)
[2020-05-08] MEDS: LIDOCAINE 5% TOPICAL PATCH TP SCH (09:13)
[2020-05-08] MEDS: SODIUM BICARBONATE 650 MG TABLET PO SCH ×2 (09:14→21:03)
[2020-05-08] MEDS: GABAPENTIN 100 MG CAPSULE PO SCH (09:15)
[2020-05-08] MEDS: amLODIPine BESYLATE 5 MG TABLET (FP) PO SCH (09:16)
[2020-05-08] MEDS: SEVELAMER CARBONATE 800 MG TAB (FP) PO SCH ×3 (09:16→17:32)
[2020-05-08] MEDS: KETOCONAZOLE 2% CREAM - 60GM TUBE TP SCH (09:17)
[2020-05-08] MEDS: POLYETHYLENE GLYCOL 3350 119 GM BTL PO SCH ×2 (09:18→21:02)
[2020-05-08] MEDS: TIMOLOL MALEATE 0.25% GFS OPHTHALMIC SOLN 5 ML BOTTLE OU SCH (09:19)
[2020-05-08] MEDS: oxyCODONE HCL 10 MG SUSTAINED ACTING TABLET PO SCH (09:55)
[2020-05-08] MEDS ORDERED: clonazePAM 0.5 MG TABLET PO PRN (13:36)
[2020-05-08] MEDS ORDERED: INSULIN (LEVEMIR) 100 UNITS/ML UNITS SQ ONE (16:57)
[2020-05-08] MEDS: LIDOCAINE PATCH REMOVAL MC SCH (21:02)
[2020-05-08] MEDS: SENNOSIDES 8.6MG TABLET (FP) PO SCH (21:03)
[2020-05-09] MEDS: PIPERACILLIN/TAZOB 2.25 GM 2.25 GM in DEXTROSE 5%-WATER - 50 ML IVPB SCH ×3 (01:19→17:15)
[2020-05-09] MEDS: INSULIN SLIDING SCALE (NOVOLOG) 1 VIAL SQ SCH ×3 (06:07→17:25)
[2020-05-09] MEDS ORDERED: DEXTROSE 5%-WATER - 50 ML IVPB ONE ×2 (08:32→17:09)
[2020-05-09] MEDS ORDERED: PIPERACILLIN/TAZOBACTAM 2.25 GM VIAL IVPB ONE ×2 (08:32→17:08)
[2020-05-09 08:50] LABS: BASO % 0.6 % (0-2.0); EOS % 3.5 % (0-4.5); HEMATOCRIT 30.2 % (35.4-49); MCH 27.7 pg (25.7-33.7); MCHC 33.2 g/dl (32.0-35.9); MEAN CELL VOLUME 83.2 fl (80-96); MEAN PLT VOLUME 7.4 fl (7.5-11.1); NEUT % 70.9 % (42.8-82.8); PLATELET COUNT 434 K/MM3 (134-434); RBC 3.63 M/mm3 (4.00-5.60)
[2020-05-09 09:05] LABS: POTASSIUM 5.2 mmol/L (3.5-5.1)
[2020-05-09 09:24] LABS: CALCIUM 8.5 mg/dL (8.5-10.1)
[2020-05-09 09:26] LABS: ALBUMIN 2.1 g/dl (3.4-5.0); BILIRUBIN,TOTAL 0.7 mg/dL (0.2-1); BLOOD UREA NITROGEN 88.8 mg/dL (7-18); MAGNESIUM 2.7 mg/dL (1.8-2.4)
[2020-05-09 09:28] LABS: CREATININE 7.1 mg/dL (0.55-1.3); TOT PROT 6.8 g/dl (6.4-8.2)
[2020-05-09 09:29] LABS: PHOSPHOROUS 5.8 mg/dL (2.5-4.9)
[2020-05-09] MEDS: SODIUM BICARBONATE 650 MG TABLET PO SCH ×2 (09:34→22:10)
[2020-05-09] MEDS: TIMOLOL MALEATE 0.25% GFS OPHTHALMIC SOLN 5 ML BOTTLE OU SCH (09:34)
[2020-05-09] MEDS: amLODIPine BESYLATE 5 MG TABLET (FP) PO SCH (09:34)
[2020-05-09] MEDS: GABAPENTIN 100 MG CAPSULE PO SCH (09:43)
[2020-05-09] MEDS: SEVELAMER CARBONATE 800 MG TAB (FP) PO SCH ×3 (09:43→17:16)
[2020-05-09] MEDS: LIDOCAINE 5% TOPICAL PATCH TP SCH (09:43)
[2020-05-09] MEDS: POLYETHYLENE GLYCOL 3350 119 GM BTL PO SCH ×2 (09:59→22:08)
[2020-05-09] MEDS: SODIUM CHLORIDE 1,000 ML IV SCH (12:33)
[2020-05-09] MEDS: KETOCONAZOLE 2% CREAM - 60GM TUBE TP SCH (16:56)
[2020-05-09] MEDS ORDERED: INSULIN (NOVOLOG) ASPART 100 UNITS/ML 10ML VIAL ONE (17:08)
[2020-05-09] MEDS: HEPARIN NA (PORCINE) 5,000 UNITS/ML 1ML VIAL SQ SCH (22:07)
[2020-05-09] MEDS: LIDOCAINE PATCH REMOVAL MC SCH (22:08)
[2020-05-09] MEDS: SENNOSIDES 8.6MG TABLET (FP) PO SCH (22:10)
[2020-05-10] MEDS ORDERED: PIPERACILLIN/TAZOBACTAM 2.25 GM VIAL IVPB ONE ×2 (01:59→11:05)
[2020-05-10] MEDS ORDERED: DEXTROSE 5%-WATER - 50 ML IVPB ONE ×2 (01:59→11:06)
[2020-05-10] MEDS: PIPERACILLIN/TAZOB 2.25 GM 2.25 GM in DEXTROSE 5%-WATER - 50 ML IVPB SCH ×2 (02:11→11:25)
[2020-05-10] MEDS: HEPARIN NA (PORCINE) 5,000 UNITS/ML 1ML VIAL SQ SCH ×3 (06:09→21:23)
[2020-05-10] MEDS: INSULIN SLIDING SCALE (NOVOLOG) 1 VIAL SQ SCH ×3 (06:09→17:02)
[2020-05-10] MEDS: ACETAMINOPHEN 325 MG TABLET (FP) PO PRN ×2 (06:10→16:50)
[2020-05-10] MEDS: oxyCODONE HCL 10 MG SUSTAINED ACTING TABLET PO PRN ×2 (08:20→21:09)
[2020-05-10] MEDS: SEVELAMER CARBONATE 800 MG TAB (FP) PO SCH ×2 (08:21→13:48)
[2020-05-10 08:44] LABS: HEMATOCRIT 31.7 % (35.4-49); HEMOGLOBIN 10.6 GM/dL (11.7-16.9); MCH 27.9 pg (25.7-33.7); MCHC 33.3 g/dl (32.0-35.9); MEAN CELL VOLUME 83.7 fl (80-96); MEAN PLT VOLUME 7.6 fl (7.5-11.1); PLATELET COUNT 429 K/MM3 (134-434); RBC 3.79 M/mm3 (4.00-5.60); RDW 15.6 % (11.9-15.9); WHITE BLOOD COUNT 7.8 K/mm3 (4.0-10.0)
[2020-05-10 09:10] LABS: POTASSIUM 5.2 mmol/L (3.5-5.1)
[2020-05-10 09:19] LABS: CALCIUM 8.6 mg/dL (8.5-10.1)
[2020-05-10 09:21] LABS: ALBUMIN 2.1 g/dl (3.4-5.0)
[2020-05-10 09:22] LABS: CREATININE 6.1 mg/dL (0.55-1.3)
[2020-05-10 09:24] LABS: BILIRUBIN,TOTAL 0.9 mg/dL (0.2-1); PHOSPHOROUS 4.7 mg/dL (2.5-4.9); TOT PROT 6.9 g/dl (6.4-8.2)
[2020-05-10] MEDS: SODIUM BICARBONATE 650 MG TABLET PO SCH ×2 (11:25→21:25)
[2020-05-10] MEDS: amLODIPine BESYLATE 5 MG TABLET (FP) PO SCH (11:25)
[2020-05-10] MEDS: GABAPENTIN 100 MG CAPSULE PO SCH (11:25)
[2020-05-10] MEDS: LIDOCAINE 5% TOPICAL PATCH TP SCH (11:31)
[2020-05-10] MEDS: POLYETHYLENE GLYCOL 3350 119 GM BTL PO SCH ×2 (11:32→21:24)
[2020-05-10] MEDS: KETOCONAZOLE 2% CREAM - 60GM TUBE TP SCH (11:32)
[2020-05-10] MEDS: TIMOLOL MALEATE 0.25% GFS OPHTHALMIC SOLN 5 ML BOTTLE OU SCH (11:33)
[2020-05-10] MEDS ORDERED: PT OWN MED DRAWER 7, Y5N ONE (14:37)
[2020-05-10] MEDS: SODIUM CHLORIDE 1,000 ML IV SCH (14:54)
[2020-05-10] MEDS: SODIUM ZIRCONIUM CYCLOSILICATE (LOKELMA) 10 GM PACKET PO SCH (16:36)
[2020-05-10] MEDS: AMOX TR/POT CLAV 500MG/125MG TABLETS (FP) PO SCH (16:51)
[2020-05-10] MEDS ORDERED: AMOX TR/POT CLAV 875MG/125MG TABLETS (FP) PO SCH (17:30)
[2020-05-10] MEDS: LIDOCAINE PATCH REMOVAL MC SCH (21:24)
[2020-05-10] MEDS: SENNOSIDES 8.6MG TABLET (FP) PO SCH (21:24)
[2020-05-11] MEDS: oxyCODONE HCL 10 MG SUSTAINED ACTING TABLET PO PRN ×2 (06:34→18:47)
[2020-05-11] MEDS: HEPARIN NA (PORCINE) 5,000 UNITS/ML 1ML VIAL SQ SCH ×3 (06:35→21:42)
[2020-05-11] MEDS: INSULIN SLIDING SCALE (NOVOLOG) 1 VIAL SQ SCH ×3 (07:08→17:35)
[2020-05-11] MEDS: AMOX TR/POT CLAV 500MG/125MG TABLETS (FP) PO SCH ×2 (08:00→17:43)
[2020-05-11] MEDS: SEVELAMER CARBONATE 800 MG TAB (FP) PO SCH ×4 (08:04→17:44)
[2020-05-11 10:07] LABS: POTASSIUM 4.4 mmol/L (3.5-5.1)
[2020-05-11] MEDS: LIDOCAINE 5% TOPICAL PATCH TP SCH (10:20)
[2020-05-11] MEDS: amLODIPine BESYLATE 5 MG TABLET (FP) PO SCH (10:21)
[2020-05-11] MEDS: GABAPENTIN 100 MG CAPSULE PO SCH (10:21)
[2020-05-11] MEDS: POLYETHYLENE GLYCOL 3350 119 GM BTL PO SCH ×2 (10:23→21:44)
[2020-05-11] MEDS: KETOCONAZOLE 2% CREAM - 60GM TUBE TP SCH (10:24)
[2020-05-11] MEDS: TIMOLOL MALEATE 0.25% GFS OPHTHALMIC SOLN 5 ML BOTTLE OU SCH (10:25)
[2020-05-11 10:28] LABS: ALBUMIN 2.1 g/dl (3.4-5.0); BLOOD UREA NITROGEN 68.4 mg/dL (7-18); CALCIUM 8.2 mg/dL (8.5-10.1); MAGNESIUM 2.3 mg/dL (1.8-2.4)
[2020-05-11] MEDS: SODIUM BICARBONATE 650 MG TABLET PO SCH ×4 (10:30→21:43)
[2020-05-11 10:31] LABS: BILIRUBIN,DIRECT 0.3 mg/dL (0.0-0.2); CREATININE 5.5 mg/dL (0.55-1.3)
[2020-05-11 10:32] LABS: BILIRUBIN,TOTAL 0.5 mg/dL (0.2-1)
[2020-05-11 10:33] LABS: TOT PROT 6.7 g/dl (6.4-8.2)
[2020-05-11] MEDS: SODIUM ZIRCONIUM CYCLOSILICATE (LOKELMA) 10 GM PACKET PO SCH (12:05)
[2020-05-11] MEDS: SODIUM CHLORIDE 1,000 ML IV SCH (17:35)
[2020-05-11] MEDS: LIDOCAINE PATCH REMOVAL MC SCH (21:43)
[2020-05-11] MEDS: SENNOSIDES 8.6MG TABLET (FP) PO SCH (21:44)
[2020-05-12] MEDS: oxyCODONE HCL 10 MG SUSTAINED ACTING TABLET PO PRN (03:17)
[2020-05-12] MEDS: INSULIN SLIDING SCALE (NOVOLOG) 1 VIAL SQ SCH ×2 (06:23→11:39)
[2020-05-12] MEDS: HEPARIN NA (PORCINE) 5,000 UNITS/ML 1ML VIAL SQ SCH (06:25)
[2020-05-12] MEDS ORDERED: PT OWN MED DRAWER 7, Y5N ONE ×2 (09:39→14:24)
[2020-05-12] MEDS: amLODIPine BESYLATE 5 MG TABLET (FP) PO SCH (10:04)
[2020-05-12] MEDS: POLYETHYLENE GLYCOL 3350 119 GM BTL PO SCH (10:04)
[2020-05-12] MEDS: AMOX TR/POT CLAV 500MG/125MG TABLETS (FP) PO SCH (10:04)
[2020-05-12] MEDS: SODIUM ZIRCONIUM CYCLOSILICATE (LOKELMA) 10 GM PACKET PO SCH (10:04)
[2020-05-12] MEDS: GABAPENTIN 100 MG CAPSULE PO SCH (10:04)
[2020-05-12] MEDS: SODIUM BICARBONATE 650 MG TABLET PO SCH (10:05)
[2020-05-12] MEDS: LIDOCAINE 5% TOPICAL PATCH TP SCH ×2 (10:05→10:14)
[2020-05-12] MEDS: KETOCONAZOLE 2% CREAM - 60GM TUBE TP SCH (10:06)
[2020-05-12] MEDS: TIMOLOL MALEATE 0.25% GFS OPHTHALMIC SOLN 5 ML BOTTLE OU SCH (10:06)
[2020-05-12] MEDS: SEVELAMER CARBONATE 800 MG TAB (FP) PO SCH ×2 (10:12→12:40)
[2020-05-12 12:28] VITALS: BP 119/66; PULSE 103; TEMP 98
[2020-05-12] MEDS: SODIUM CHLORIDE 1,000 ML IV SCH (12:40)
== END 2020-05-12 14:48 | disposition home health service (06) | DRG 638 ==
LOC: JER 12:37 → JERBED 18:13 → J8W 05-04 05:03
PROVIDERS: ADMIT Internal Medicine; ATTEND Internal Medicine
DX: E11.621 Type 2 diabetes mellitus with foot ulcer (principal); L97.528 Non-pressure chronic ulcer of other part of left foot with other specified severity; M86.672 Other chronic osteomyelitis, left ankle and foot; I12.0 Hypertensive chronic kidney disease with stage 5 chronic kidney disease or end stage renal disease; H33.21 Serous retinal detachment, right eye; N17.9 Acute kidney failure, unspecified; E11.42 Type 2 diabetes mellitus with diabetic polyneuropathy; E11.22 Type 2 diabetes mellitus with diabetic chronic kidney disease; N18.5 Chronic kidney disease, stage 5; E11.69 Type 2 diabetes mellitus with other specified complication; N40.0 Benign prostatic hyperplasia without lower urinary tract symptoms; M54.5 Low back pain; K21.9 Gastro-esophageal reflux disease without esophagitis; K57.90 Diverticulosis of intestine, part unspecified, without perforation or abscess without bleeding; K22.70 Barrett's esophagus without dysplasia; E11.319 Type 2 diabetes mellitus with unspecified diabetic retinopathy without macular edema; D64.9 Anemia, unspecified; B95.1 Streptococcus, group B, as the cause of diseases classified elsewhere; M81.0 Age-related osteoporosis without current pathological fracture; D63.1 Anemia in chronic kidney disease
CPT/HCPCS: 36415; 70450-TC; 71046-TC-FY; 72220-TC-FY; 73030-TC-LT-FY; 73070-TC-LT-FY; 73630-TC-LT; 80048; 80053; 80076; 81003; 82962; 83605; 83735; 84100; 85025; 85027; 85610; 85651; 85730; 86140; 86850; 86900; 86901; 87040; 87086; 87186; 93005; 93010; 93306-TC; 93922; 93925-TC; 93931; 93971; 97116-GP; 97162-GP; 99285-25; C9803; J1644; U0003

== ENCOUNTER 2020-06-08 10:50 | Inpatient (IN) | payer OTHER ==
[2020-06-08] MEDS ORDERED: LACTATED RINGERS SOLUTION 1000 ML INFUS.BAG IV ONE (11:29)
[2020-06-08] MEDS ORDERED: DEXTROSE 50%-WATER - 25 GM/50 ML VIAL IVPUSH ONE (11:29)
[2020-06-08] MEDS ORDERED: DEXTROSE 50%-WATER 25 GM/50 ML DISP.SYRIN ONE (11:30)
[2020-06-08 11:55] LABS: BASO % 0.3 % (0-2.0); EOS % 0.4 % (0-4.5); HEMATOCRIT 28.2 % (35.4-49); LYMPH % 1.9 % (8-40); MCHC 31.8 g/dl (32.0-35.9); MEAN CELL VOLUME 81.7 fl (80-96); MEAN PLT VOLUME 7.9 fl (7.5-11.1); MONO % 2.4 % (3.8-10.2); PLATELET COUNT 451 K/MM3 (134-434); RBC 3.45 M/mm3 (4.00-5.60); WHITE BLOOD COUNT 20.4 K/mm3 (4.0-10.0)
[2020-06-08 11:58] LABS: VENOUS BASE EXCESS -12.9 mmol/L (-2-2); VENOUS O2 SATURATION 45.1 % (70-80); VENOUS PCO2 41.1 mmHg (38-52)
[2020-06-08 12:01] LABS: VENOUS PH 7.177 (7.310-7.410)
[2020-06-08 12:02] LABS: INR 1.44 (0.83-1.09); PROTHROMBIN TIME (PATIENT) 17.2 SEC (9.7-13.0)
[2020-06-08 12:05] LABS: ACTIVATED PTT 31.2 SECONDS (25.2-36.5)
[2020-06-08] MEDS ORDERED: PIPERACILLIN/TAZOB 2.25 GM 2.25 GM in DEXTROSE 5%-WATER - 50 ML IVPB ONE (12:16)
[2020-06-08] MEDS ORDERED: VANCOMYCIN 1 GM in D5W (PRE-DOCKED) 1,000 MG/250 ML IVPB ONE (12:16)
[2020-06-08] MEDS ORDERED: SODIUM CHLORIDE 0.9% 1000 ML INFUS.BAG IV ONE (12:19)
[2020-06-08 12:26] LABS: CHLORIDE 100 mmol/L (98-107); SODIUM 132 mmol/L (136-145)
[2020-06-08 12:29] LABS: ANION GAP 16 MMOL/L (8-16); CALCIUM 9.2 mg/dL (8.5-10.1); CO2 17 mmol/L (21-32)
[2020-06-08 12:30] LABS: BLOOD UREA NITROGEN 95.4 mg/dL (7-18); MAGNESIUM 2.3 mg/dL (1.8-2.4)
[2020-06-08 12:33] LABS: CREATININE 7.2 mg/dL (0.55-1.3); SGOT/AST 34 U/L (15-37); SGPT/ALT 14 U/L (13-61)
[2020-06-08 12:34] LABS: BILIRUBIN,TOTAL 1.3 mg/dL (0.2-1); TOT PROT 6.8 g/dl (6.4-8.2)
[2020-06-08 12:36] LABS: ALK PHOS 277 U/L (45-117)
[2020-06-08] MEDS ORDERED: VANCOMYCIN 1 GRAM (PRE-DOCKED) 1,000 MG/250 ML BAG IVPB ONE (12:41)
[2020-06-08 13:05] LABS: GLUCOSE,RANDOM 33 mg/dL (74-106)
[2020-06-08 13:55] LABS: ANISOCYTOSIS 1+; MACROCYTOSIS 0; OVALOCYTE 1+; PLATELET ESTIMATE NORMAL
[2020-06-08] MEDS ORDERED: SODIUM CHLORIDE 250 ML IV PRN (14:03)
[2020-06-08] MEDS: ALBUMIN HUMAN 25% 12.5 GM/50 ML VIAL IVPB SCH ×4 (14:55→16:10)
[2020-06-08] MEDS ORDERED: ACETAMINOPHEN 325 MG TABLET (FP) PO PRN (15:16)
[2020-06-08] MEDS: INSULIN SLIDING SCALE (NOVOLOG) 1 VIAL SQ SCH ×2 (20:59→22:28)
[2020-06-08] MEDS: PIPERACILLIN/TAZOB 2.25 GM 2.25 GM in DEXTROSE 5%-WATER - 50 ML IVPB SCH (21:00)
[2020-06-08] MEDS: PANTOPRAZOLE 40 MG TABLET PO SCH (21:11)
[2020-06-08] MEDS: SODIUM BICARBONATE 8.4% - 150 MEQ in DEXTROSE 5%-WATER - 1,000 ML IV SCH (21:11)
[2020-06-08] MEDS ORDERED: PIPERACILLIN/TAZOBACTAM 2.25 GM VIAL IVPB ONE (21:14)
[2020-06-08] MEDS ORDERED: DEXTROSE 5%-WATER - 50 ML IVPB ONE (21:14)
[2020-06-08 23:47] LABS: HEMATOCRIT 23.7 % (35.4-49); HEMOGLOBIN 7.6 GM/dL (11.7-16.9); MCH 25.9 pg (25.7-33.7); MCHC 32.2 g/dl (32.0-35.9); MEAN CELL VOLUME 80.4 fl (80-96); MEAN PLT VOLUME 7.7 fl (7.5-11.1); PLATELET COUNT 357 K/MM3 (134-434); RBC 2.95 M/mm3 (4.00-5.60); RDW 15.9 % (11.9-15.9); WHITE BLOOD COUNT 12.1 K/mm3 (4.0-10.0)
[2020-06-09] MEDS ORDERED: PIPERACILLIN/TAZOBACTAM 2.25 GM VIAL IVPB ONE ×3 (03:24→19:00)
[2020-06-09] MEDS ORDERED: DEXTROSE 5%-WATER - 50 ML IVPB ONE ×3 (03:25→19:00)
[2020-06-09] MEDS: PIPERACILLIN/TAZOB 2.25 GM 2.25 GM in DEXTROSE 5%-WATER - 50 ML IVPB SCH ×3 (03:39→19:15)
[2020-06-09] MEDS: SODIUM BICARBONATE 8.4% - 150 MEQ in DEXTROSE 5%-WATER - 1,000 ML IV SCH (03:39)
[2020-06-09] MEDS: INSULIN SLIDING SCALE (NOVOLOG) 1 VIAL SQ SCH ×3 (06:20→21:25)
[2020-06-09 07:37] LABS: INR 1.49 (0.83-1.09); PROTHROMBIN TIME (PATIENT) 17.8 SEC (9.7-13.0)
[2020-06-09 07:43] LABS: BASO % 0.3 % (0-2.0); EOS % 0.6 % (0-4.5); HEMATOCRIT 22.9 % (35.4-49); HEMOGLOBIN 7.6 GM/dL (11.7-16.9); LYMPH % 6.2 % (8-40); MCH 26.3 pg (25.7-33.7); MCHC 33.1 g/dl (32.0-35.9); MEAN CELL VOLUME 79.3 fl (80-96); MEAN PLT VOLUME 7.6 fl (7.5-11.1); MONO % 3.7 % (3.8-10.2); NEUT % 89.2 % (42.8-82.8); PLATELET COUNT 366 K/MM3 (134-434); RBC 2.89 M/mm3 (4.00-5.60); RDW 16.1 % (11.9-15.9); WHITE BLOOD COUNT 12.9 K/mm3 (4.0-10.0)
[2020-06-09 07:46] LABS: POTASSIUM 4.2 mmol/L (3.5-5.1)
[2020-06-09 07:49] LABS: MAGNESIUM 2.1 mg/dL (1.8-2.4)
[2020-06-09 07:53] LABS: PHOSPHOROUS 3.8 mg/dL (2.5-4.9)
[2020-06-09 07:54] LABS: BILIRUBIN,TOTAL 1.6 mg/dL (0.2-1); TOT PROT 5.2 g/dl (6.4-8.2)
[2020-06-09 07:55] LABS: ALBUMIN 1.5 g/dl (3.4-5.0); BLOOD UREA NITROGEN 62.8 mg/dL (7-18)
[2020-06-09 09:54] LABS: ANISOCYTOSIS 2+; MACROCYTOSIS 0; PLATELET ESTIMATE NORMAL; TARGET CELLS 1+
[2020-06-09] MEDS ORDERED: FUROSEMIDE 40 MG/4 ML INJECTABLE VIAL IVPUSH ONE (09:55)
[2020-06-09] MEDS ORDERED: PATIENT'S OWN MEDICATION (NON-FORMULARY) (Brinzolamide/Brimonidine Tart [Simbrinza 1%-0.2% OU SCH (10:00)
[2020-06-09] MEDS ORDERED: TIMOLOL 0.25% OPHTHALMIC SOL 5 ML BOTTLE OU SCH (10:00)
[2020-06-09] MEDS: PANTOPRAZOLE 40 MG TABLET PO SCH (10:00)
[2020-06-09 12:48] LABS: ARTERIAL BLD GAS O2 SATURATION 96.4 mmHg (95-98); ARTERIAL BLOOD GAS BASE EXCESS -0.6 mmol/L (-2-2); ARTERIAL BLOOD GAS PO2 82.5 mmHg (80-100); ARTERIAL BLOOD GAS pH 7.422 (7.350-7.450)
[2020-06-09 12:49] LABS: ALLENS TEST POSITIVE
[2020-06-09] MEDS ORDERED: LIDOCAINE HCL/PF 2% SDV 5ML VIAL ONE (17:10)
[2020-06-09] MEDS ORDERED: ETOMIDATE 20 MG/10 ML AMPUL IVPUSH ONE (17:19)
[2020-06-09] MEDS ORDERED: NEOSTIGMINE METHYLSULFATE 0.5 MG/ML - 10 ML MDV ONE (17:23)
[2020-06-09] MEDS ORDERED: PROPOFOL 20 ML ONE (17:23)
[2020-06-09] MEDS ORDERED: SUCCINYLCHOLINE CHLORIDE 200 MG/10 ML SYRINGE ONE (17:23)
[2020-06-09] MEDS ORDERED: EPHEDRINE SULFATE/0.9% NACL/PF 50 MG/10 ML SYRINGE NR ONE (17:23)
[2020-06-09] MEDS ORDERED: KETAMINE HCL 200 MG/20 ML VIAL ONE (17:24)
[2020-06-09] MEDS ORDERED: morphine CARPU-JECT 4 MG/1 ML DISP.SYRIN IVPUSH PRN (19:13)
[2020-06-09] MEDS ORDERED: SODIUM CHLORIDE 1,000 ML IV SCH ×2 (19:15→19:30)
[2020-06-09] MEDS ORDERED: ONDANSETRON 4 MG/2 ML VIAL IVPUSH PRN (19:24)
[2020-06-09] MEDS: MUPIROCIN 2% TOPICAL OINTMENT FOR DECOLONIZATION NS SCH (21:24)
[2020-06-09] MEDS: CHLORHEXIDINE GLUCONATE 4% CLEANSER FOR DECOLONIZATION TP SCH (21:25)
[2020-06-09] MEDS: oxyCODONE HCL 5 MG TABLET PO PRN (22:11)
[2020-06-09] MEDS: ACETAMINOPHEN 325 MG TABLET (FP) PO PRN (22:12)
[2020-06-09] MEDS ORDERED: morphine SULFATE 4 MG/ML VIAL IVPUSH PRN (22:29)
[2020-06-10] MEDS ORDERED: PIPERACILLIN/TAZOBACTAM 2.25 GM VIAL IVPB ONE ×3 (01:36→17:18)
[2020-06-10] MEDS ORDERED: DEXTROSE 5%-WATER - 50 ML IVPB ONE ×3 (01:37→17:18)
[2020-06-10] MEDS: PIPERACILLIN/TAZOB 2.25 GM 2.25 GM in DEXTROSE 5%-WATER - 50 ML IVPB SCH ×3 (01:38→17:21)
[2020-06-10] MEDS: ACETAMINOPHEN 325 MG TABLET (FP) PO PRN ×3 (01:39→21:23)
[2020-06-10] MEDS: oxyCODONE HCL 5 MG TABLET PO PRN ×3 (01:39→21:24)
[2020-06-10] MEDS: INSULIN SLIDING SCALE (NOVOLOG) 1 VIAL SQ SCH ×4 (06:35→21:20)
[2020-06-10 06:45] LABS: BASO % 0.1 % (0-2.0); EOS % 2.7 % (0-4.5); HEMATOCRIT 29.6 % (35.4-49); HEMOGLOBIN 9.9 GM/dL (11.7-16.9); LYMPH % 14.2 % (8-40); MCH 27.4 pg (25.7-33.7); MCHC 33.3 g/dl (32.0-35.9); MEAN CELL VOLUME 82.3 fl (80-96); MONO % 4.7 % (3.8-10.2); NEUT % 78.3 % (42.8-82.8); PLATELET COUNT 320 K/MM3 (134-434); RDW 16.1 % (11.9-15.9); WHITE BLOOD COUNT 14.1 K/mm3 (4.0-10.0)
[2020-06-10 07:01] LABS: CHLORIDE 131 mmol/L (98-107); POTASSIUM 5.4 mmol/L (3.5-5.1)
[2020-06-10 07:02] LABS: CALCIUM 8.3 mg/dL (8.5-10.1)
[2020-06-10 07:03] LABS: BLOOD UREA NITROGEN 70.1 mg/dL (7-18); CO2 27 mmol/L (21-32)
[2020-06-10 07:04] LABS: GLUCOSE,RANDOM 168 mg/dL (74-106)
[2020-06-10 07:07] LABS: CREATININE 5.3 mg/dL (0.55-1.3)
[2020-06-10] MEDS ORDERED: SODIUM CHLORIDE 250 ML IV PRN (07:21)
[2020-06-10 07:27] LABS: IRON SERUM 42 ug/dL (50-175)
[2020-06-10 07:28] LABS: TOTAL IRON BINDING CAPACITY 105 ug/dL (250-450)
[2020-06-10 07:47] LABS: ANION GAP 16 MMOL/L (8-16); SODIUM 173 mmol/L (136-145)
[2020-06-10] MEDS ORDERED: EPHEDRINE SULFATE/0.9% NACL/PF 50 MG/10 ML SYRINGE NR ONE (08:47)
[2020-06-10] MEDS ORDERED: SUCCINYLCHOLINE CHLORIDE 200 MG/10 ML SYRINGE ONE (08:47)
[2020-06-10] MEDS ORDERED: LIDOCAINE HCL/PF 2% SDV 5ML VIAL ONE (08:49)
[2020-06-10] MEDS: PANTOPRAZOLE 40 MG TABLET PO SCH (09:08)
[2020-06-10] MEDS: MUPIROCIN 2% TOPICAL OINTMENT FOR DECOLONIZATION NS SCH ×2 (09:09→21:19)
[2020-06-10] MEDS ORDERED: TIMOLOL 0.25% OPHTHALMIC SOL 5 ML BOTTLE OU SCH (10:00)
[2020-06-10 10:08] LABS: POTASSIUM 4.2 mmol/L (3.5-5.1)
[2020-06-10 10:10] LABS: ALBUMIN 1.5 g/dl (3.4-5.0)
[2020-06-10 10:11] LABS: BLOOD UREA NITROGEN 72.5 mg/dL (7-18); MAGNESIUM 2.2 mg/dL (1.8-2.4)
[2020-06-10 10:14] LABS: CREATININE 5.4 mg/dL (0.55-1.3)
[2020-06-10 10:15] LABS: PHOSPHOROUS 4.2 mg/dL (2.5-4.9); TOT PROT 5.4 g/dl (6.4-8.2)
[2020-06-10] MEDS ORDERED: EPOETIN ALFA-EPBX 10,000 UNIT/ML VIAL IVPUSH ONE (10:30)
[2020-06-10] MEDS: TIMOLOL 0.25% OPHTHALMIC SOL 5 ML BOTTLE OU SCH ×2 (10:35→21:20)
[2020-06-10 12:48] LABS: ANISOCYTOSIS 0; MACROCYTOSIS 0; PLATELET ESTIMATE NORMAL
[2020-06-10] MEDS ORDERED: LIDOCAINE 5% TOPICAL PATCH TP ONE (12:52)
[2020-06-10] MEDS: SODIUM CHLORIDE 1,000 ML IV SCH (14:15)
[2020-06-10] MEDS: CHLORHEXIDINE GLUCONATE 4% CLEANSER FOR DECOLONIZATION TP SCH (21:20)
[2020-06-10] MEDS ORDERED: LIDOCAINE PATCH REMOVAL MC ONE (22:00)
[2020-06-11] MEDS ORDERED: PIPERACILLIN/TAZOBACTAM 2.25 GM VIAL IVPB ONE ×4 (00:46→20:50)
[2020-06-11] MEDS ORDERED: DEXTROSE 5%-WATER - 50 ML IVPB ONE ×4 (00:46→20:50)
[2020-06-11] MEDS: PIPERACILLIN/TAZOB 2.25 GM 2.25 GM in DEXTROSE 5%-WATER - 50 ML IVPB SCH ×3 (01:05→17:57)
[2020-06-11] MEDS: INSULIN SLIDING SCALE (NOVOLOG) 1 VIAL SQ SCH ×4 (06:18→21:09)
[2020-06-11] MEDS: oxyCODONE HCL 5 MG TABLET PO PRN ×2 (06:32→21:09)
[2020-06-11] MEDS: ACETAMINOPHEN 325 MG TABLET (FP) PO PRN ×2 (06:33→21:09)
[2020-06-11 06:40] LABS: HEMOGLOBIN 12.2 GM/dL (11.7-16.9); MCH 27.6 pg (25.7-33.7); MCHC 33.8 g/dl (32.0-35.9); MEAN CELL VOLUME 81.7 fl (80-96); MEAN PLT VOLUME 7.6 fl (7.5-11.1); PLATELET COUNT 310 K/MM3 (134-434); RDW 16.1 % (11.9-15.9); WHITE BLOOD COUNT 11.3 K/mm3 (4.0-10.0)
[2020-06-11 07:36] LABS: POTASSIUM 4.5 mmol/L (3.5-5.1)
[2020-06-11 07:38] LABS: ALBUMIN 1.6 g/dl (3.4-5.0); BLOOD UREA NITROGEN 47.9 mg/dL (7-18); CALCIUM 8.3 mg/dL (8.5-10.1)
[2020-06-11 07:39] LABS: MAGNESIUM 2.2 mg/dL (1.8-2.4)
[2020-06-11 07:41] LABS: PHOSPHOROUS 3.5 mg/dL (2.5-4.9)
[2020-06-11 07:42] LABS: CREATININE 4.2 mg/dL (0.55-1.3)
[2020-06-11 07:43] LABS: BILIRUBIN,TOTAL 0.9 mg/dL (0.2-1)
[2020-06-11 07:44] LABS: TOT PROT 5.9 g/dl (6.4-8.2)
[2020-06-11] MEDS: SODIUM CHLORIDE 1,000 ML IV SCH (09:45)
[2020-06-11] MEDS: TIMOLOL 0.25% OPHTHALMIC SOL 5 ML BOTTLE OU SCH ×2 (10:21→21:09)
[2020-06-11] MEDS: MUPIROCIN 2% TOPICAL OINTMENT FOR DECOLONIZATION NS SCH ×2 (10:21→21:08)
[2020-06-11] MEDS: PANTOPRAZOLE 40 MG TABLET PO SCH (10:21)
[2020-06-11 11:15] LABS: HEP B CORE AB, TOT Negative (Negative)
[2020-06-11] MEDS: CHLORHEXIDINE GLUCONATE 4% CLEANSER FOR DECOLONIZATION TP SCH (21:08)
[2020-06-12] MEDS: PIPERACILLIN/TAZOB 2.25 GM 2.25 GM in DEXTROSE 5%-WATER - 50 ML IVPB SCH ×3 (01:08→17:56)
[2020-06-12] MEDS ORDERED: amLODIPine BESYLATE 5 MG TABLET (FP) PO ONE (03:47)
[2020-06-12] MEDS: INSULIN SLIDING SCALE (NOVOLOG) 1 VIAL SQ SCH ×4 (06:09→22:35)
[2020-06-12] MEDS: oxyCODONE HCL 5 MG TABLET PO PRN ×2 (06:09→19:42)
[2020-06-12] MEDS ORDERED: DEXTROSE 5%-WATER - 50 ML IVPB ONE ×2 (10:31→17:54)
[2020-06-12] MEDS ORDERED: PIPERACILLIN/TAZOBACTAM 2.25 GM VIAL IVPB ONE ×2 (10:31→17:54)
[2020-06-12] MEDS: MUPIROCIN 2% TOPICAL OINTMENT FOR DECOLONIZATION NS SCH ×2 (10:33→22:35)
[2020-06-12] MEDS: amLODIPine BESYLATE 5 MG TABLET (FP) PO SCH (10:34)
[2020-06-12] MEDS: PANTOPRAZOLE 40 MG TABLET PO SCH (10:34)
[2020-06-12] MEDS: TIMOLOL 0.25% OPHTHALMIC SOL 5 ML BOTTLE OU SCH ×2 (10:41→22:40)
[2020-06-12 13:37] LABS: BASO % 0.3 % (0-2.0); EOS % 4.6 % (0-4.5); HEMATOCRIT 36.7 % (35.4-49); HEMOGLOBIN 12.1 GM/dL (11.7-16.9); LYMPH % 16.7 % (8-40); MCH 27.7 pg (25.7-33.7); MEAN CELL VOLUME 83.9 fl (80-96); MEAN PLT VOLUME 7.7 fl (7.5-11.1); MONO % 5.9 % (3.8-10.2); NEUT % 72.5 % (42.8-82.8); PLATELET COUNT 261 K/MM3 (134-434); RBC 4.37 M/mm3 (4.00-5.60); RDW 16.5 % (11.9-15.9); WHITE BLOOD COUNT 10.6 K/mm3 (4.0-10.0)
[2020-06-12 13:59] LABS: POTASSIUM 4.7 mmol/L (3.5-5.1)
[2020-06-12 14:03] LABS: CALCIUM 8.1 mg/dL (8.5-10.1)
[2020-06-12 14:04] LABS: ALBUMIN 1.6 g/dl (3.4-5.0); BLOOD UREA NITROGEN 55.8 mg/dL (7-18); MAGNESIUM 2.1 mg/dL (1.8-2.4)
[2020-06-12 14:06] LABS: ANISOCYTOSIS 2+; MACROCYTOSIS 0; PLATELET ESTIMATE NORMAL
[2020-06-12 14:07] LABS: CREATININE 4.7 mg/dL (0.55-1.3)
[2020-06-12 14:09] LABS: BILIRUBIN,TOTAL 0.7 mg/dL (0.2-1); TOT PROT 5.9 g/dl (6.4-8.2)
[2020-06-12] MEDS: SODIUM CHLORIDE 1,000 ML IV SCH (15:00)
[2020-06-12] MEDS: CHLORHEXIDINE GLUCONATE 4% CLEANSER FOR DECOLONIZATION TP SCH (22:35)
[2020-06-13] MEDS ORDERED: PATIENT'S OWN MEDICATION (NON-FORMULARY) (Netarsudil Mesylat/Latanoprost [Rocklatan 0.02%- OU SCH ×2 (00:15→22:00)
[2020-06-13] MEDS: PATIENT'S OWN MEDICATION (NON-FORMULARY) (Brinzolamide/Brimonidine Tart [Simbrinza 1%-0.2% OU SCH ×2 (01:29→10:33)
[2020-06-13] MEDS ORDERED: DEXTROSE 5%-WATER - 50 ML IVPB ONE ×3 (01:59→18:42)
[2020-06-13] MEDS ORDERED: PIPERACILLIN/TAZOBACTAM 2.25 GM VIAL IVPB ONE ×3 (01:59→18:42)
[2020-06-13] MEDS: PIPERACILLIN/TAZOB 2.25 GM 2.25 GM in DEXTROSE 5%-WATER - 50 ML IVPB SCH ×2 (02:01→10:34)
[2020-06-13] MEDS: INSULIN SLIDING SCALE (NOVOLOG) 1 VIAL SQ SCH ×3 (06:23→17:35)
[2020-06-13] MEDS ORDERED: SODIUM CHLORIDE 250 ML IV PRN (07:34)
[2020-06-13 07:43] LABS: BASO % 0.5 % (0-2.0); EOS % 4.3 % (0-4.5); HEMATOCRIT 36.5 % (35.4-49); HEMOGLOBIN 12.3 GM/dL (11.7-16.9); LYMPH % 20.5 % (8-40); MCH 27.8 pg (25.7-33.7); MCHC 33.8 g/dl (32.0-35.9); MEAN CELL VOLUME 82.1 fl (80-96); MEAN PLT VOLUME 7.5 fl (7.5-11.1); MONO % 6.3 % (3.8-10.2); NEUT % 68.4 % (42.8-82.8); PLATELET COUNT 256 K/MM3 (134-434); RBC 4.44 M/mm3 (4.00-5.60); RDW 16.8 % (11.9-15.9); WHITE BLOOD COUNT 9.9 K/mm3 (4.0-10.0)
[2020-06-13 07:51] LABS: POTASSIUM 4.3 mmol/L (3.5-5.1)
[2020-06-13 07:53] LABS: ALBUMIN 1.7 g/dl (3.4-5.0); CALCIUM 7.7 mg/dL (8.5-10.1); INR 1.1 (0.83-1.09); MAGNESIUM 1.8 mg/dL (1.8-2.4); PROTHROMBIN TIME (PATIENT) 13.3 SEC (9.7-13.0)
[2020-06-13 07:56] LABS: CREATININE 4.7 mg/dL (0.55-1.3)
[2020-06-13 07:58] LABS: BILIRUBIN,TOTAL 0.7 mg/dL (0.2-1); TOT PROT 6.1 g/dl (6.4-8.2)
[2020-06-13] MEDS: amLODIPine BESYLATE 5 MG TABLET (FP) PO SCH (10:30)
[2020-06-13] MEDS: PANTOPRAZOLE 40 MG TABLET PO SCH (10:30)
[2020-06-13] MEDS: MUPIROCIN 2% TOPICAL OINTMENT FOR DECOLONIZATION NS SCH (10:33)
[2020-06-13] MEDS: TIMOLOL 0.25% OPHTHALMIC SOL 5 ML BOTTLE OU SCH (10:48)
[2020-06-13 11:07] LABS: ANISOCYTOSIS 1+; MACROCYTOSIS 0; PLATELET ESTIMATE NORMAL
[2020-06-13] MEDS ORDERED: LIDOCAINE HCL 1%, 10 MG/ML (20ML VIAL) ONE (13:57)
[2020-06-13] MEDS ORDERED: PROPOFOL 20 ML ONE ×2 (15:49)
[2020-06-13] MEDS ORDERED: MIDAZOLAM HCL 2 MG/2 ML SINGLE DOSE VIAL ONE (15:49)
[2020-06-13] MEDS ORDERED: BACITRACIN 50,000 UNITS VIAL NR ONE (16:45)
[2020-06-13] MEDS ORDERED: morphine SULFATE 4 MG/ML VIAL IVPUSH PRN ×2 (17:58→18:13)
[2020-06-13] MEDS ORDERED: ACETAMINOPHEN 325 MG TABLET (FP) PO PRN ×2 (17:58→18:13)
[2020-06-13] MEDS ORDERED: ONDANSETRON 4 MG/2 ML VIAL IVPUSH PRN ×2 (17:58→18:13)
[2020-06-13] MEDS ORDERED: PIPERACILLIN/TAZOB 2.25 GM 2.25 GM in DEXTROSE 5%-WATER - 50 ML IVPB SCH ×2 (18:00→18:30)
[2020-06-13] MEDS ORDERED: SODIUM CHLORIDE 1,000 ML IV SCH (18:13)
[2020-06-13] MEDS ORDERED: oxyCODONE HCL 5 MG TABLET PO PRN (18:13)
[2020-06-13] MEDS ORDERED: CHLORHEXIDINE GLUCONATE 4% CLEANSER FOR DECOLONIZATION TP SCH ×3 (22:00)
[2020-06-13] MEDS ORDERED: MUPIROCIN 2% TOPICAL OINTMENT FOR DECOLONIZATION NS SCH ×3 (22:00)
[2020-06-13] MEDS ORDERED: TIMOLOL 0.25% OPHTHALMIC SOL 5 ML BOTTLE OU SCH ×2 (22:00)
[2020-06-13] MEDS ORDERED: PATIENT'S OWN MEDICATION (NON-FORMULARY) (Brinzolamide/Brimonidine Tart [Simbrinza 1%-0.2% OU SCH ×2 (22:00)
[2020-06-13] MEDS ORDERED: DOCUSATE SODIUM 100 MG CAPSULE (FP) PO SCH (22:00)
[2020-06-13] MEDS ORDERED: INSULIN SLIDING SCALE (NOVOLOG) 1 VIAL SQ SCH ×2 (22:00)
[2020-06-13] MEDS ORDERED: SENNOSIDES 8.6MG TABLET (FP) PO SCH (22:00)
[2020-06-14] MEDS ORDERED: morphine SULFATE 4 MG/ML VIAL IVPUSH PRN (00:57)
[2020-06-14] MEDS ORDERED: ONDANSETRON 4 MG/2 ML VIAL IVPUSH PRN (00:57)
[2020-06-14] MEDS: SODIUM CHLORIDE 1,000 ML IV SCH (01:05)
[2020-06-14] MEDS: oxyCODONE HCL 5 MG TABLET PO PRN ×2 (02:40→09:23)
[2020-06-14] MEDS ORDERED: SENNOSIDES 8.6MG TABLET (FP) PO ONE (03:07)
[2020-06-14] MEDS ORDERED: PIPERACILLIN/TAZOBACTAM 2.25 GM VIAL IVPB ONE ×3 (03:08→17:58)
[2020-06-14] MEDS ORDERED: DEXTROSE 5%-WATER - 50 ML IVPB ONE ×3 (03:09→17:58)
[2020-06-14] MEDS: PIPERACILLIN/TAZOB 2.25 GM 2.25 GM in DEXTROSE 5%-WATER - 50 ML IVPB SCH ×3 (03:12→18:23)
[2020-06-14] MEDS: INSULIN SLIDING SCALE (NOVOLOG) 1 VIAL SQ SCH ×4 (06:17→22:33)
[2020-06-14] MEDS: PANTOPRAZOLE 40 MG TABLET PO SCH (09:23)
[2020-06-14] MEDS: DOCUSATE SODIUM 100 MG CAPSULE (FP) PO SCH ×2 (09:23→22:33)
[2020-06-14] MEDS: amLODIPine BESYLATE 5 MG TABLET (FP) PO SCH (09:23)
[2020-06-14] MEDS ORDERED: amLODIPine BESYLATE 5 MG TABLET (FP) PO SCH (10:00)
[2020-06-14] MEDS ORDERED: PATIENT'S OWN MEDICATION (NON-FORMULARY) (Brinzolamide/Brimonidine Tart [Simbrinza 1%-0.2% OU SCH (10:00)
[2020-06-14] MEDS ORDERED: PANTOPRAZOLE 40 MG TABLET PO SCH ×2 (10:00)
[2020-06-14] MEDS ORDERED: MUPIROCIN 2% TOPICAL OINTMENT FOR DECOLONIZATION NS SCH (10:00)
[2020-06-14] MEDS: TIMOLOL 0.25% OPHTHALMIC SOL 5 ML BOTTLE OU SCH ×2 (10:42→22:34)
[2020-06-14 11:10] LABS: BASO % 0.5 % (0-2.0); EOS % 3.2 % (0-4.5); HEMATOCRIT 32.2 % (35.4-49); HEMOGLOBIN 10.5 GM/dL (11.7-16.9); LYMPH % 18.6 % (8-40); MCHC 32.5 g/dl (32.0-35.9); MEAN PLT VOLUME 7.8 fl (7.5-11.1); MONO % 7.7 % (3.8-10.2); PLATELET COUNT 220 K/MM3 (134-434); RBC 3.87 M/mm3 (4.00-5.60); RDW 16.5 % (11.9-15.9); WHITE BLOOD COUNT 11.4 K/mm3 (4.0-10.0)
[2020-06-14 11:56] LABS: ALBUMIN 1.6 g/dl (3.4-5.0); CALCIUM 7.5 mg/dL (8.5-10.1)
[2020-06-14 11:57] LABS: BLOOD UREA NITROGEN 34.8 mg/dL (7-18); MAGNESIUM 1.7 mg/dL (1.8-2.4)
[2020-06-14 11:58] LABS: BILIRUBIN,TOTAL 0.6 mg/dL (0.2-1); TOT PROT 5.6 g/dl (6.4-8.2)
[2020-06-14] MEDS ORDERED: oxyCODONE HCL 5 MG TABLET PO PRN (11:59)
[2020-06-14 12:00] LABS: CREATININE 3.5 mg/dL (0.55-1.3)
[2020-06-14] MEDS: BACITRACIN 15 GM TUBE TOPICAL OINTMENT TP SCH (12:24)
[2020-06-14] MEDS: HEPARIN NA (PORCINE) 5,000 UNITS/ML 1ML VIAL SQ SCH ×2 (12:24→18:23)
[2020-06-14 12:27] LABS: ANISOCYTOSIS 0; MACROCYTOSIS 0; PLATELET ESTIMATE NORMAL
[2020-06-14 14:33] VITALS: BMI 20.5
[2020-06-14] MEDS ORDERED: CHLORHEXIDINE GLUCONATE 4% CLEANSER FOR DECOLONIZATION TP SCH (22:00)
[2020-06-14] MEDS ORDERED: PATIENT'S OWN MEDICATION (NON-FORMULARY) (Netarsudil Mesylat/Latanoprost [Rocklatan 0.02%- OU SCH (22:00)
[2020-06-14] MEDS: SENNOSIDES 8.6MG TABLET (FP) PO SCH (22:34)
[2020-06-15] MEDS: SODIUM CHLORIDE 1,000 ML IV SCH (01:00)
[2020-06-15] MEDS: PIPERACILLIN/TAZOB 2.25 GM 2.25 GM in DEXTROSE 5%-WATER - 50 ML IVPB SCH ×3 (02:35→19:02)
[2020-06-15] MEDS ORDERED: PIPERACILLIN/TAZOBACTAM 2.25 GM VIAL IVPB ONE ×3 (03:26→17:33)
[2020-06-15] MEDS ORDERED: DEXTROSE 5%-WATER - 50 ML IVPB ONE ×3 (03:27→17:33)
[2020-06-15] MEDS: HEPARIN NA (PORCINE) 5,000 UNITS/ML 1ML VIAL SQ SCH ×3 (03:43→17:51)
[2020-06-15] MEDS: INSULIN SLIDING SCALE (NOVOLOG) 1 VIAL SQ SCH ×4 (06:34→21:53)
[2020-06-15] MEDS: AMINO ACIDS/PROTEIN HYDROLYS 30 ML LIQUID.PKT PO SCH (08:52)
[2020-06-15 09:04] LABS: BASO % 0.6 % (0-2.0); EOS % 3.6 % (0-4.5); HEMATOCRIT 31.5 % (35.4-49); HEMOGLOBIN 10.5 GM/dL (11.7-16.9); MCH 27.5 pg (25.7-33.7); MCHC 33.4 g/dl (32.0-35.9); MEAN CELL VOLUME 82.3 fl (80-96); MEAN PLT VOLUME 7.7 fl (7.5-11.1); MONO % 7.2 % (3.8-10.2); NEUT % 67.6 % (42.8-82.8); PLATELET COUNT 219 K/MM3 (134-434); RBC 3.82 M/mm3 (4.00-5.60); RDW 16.9 % (11.9-15.9); WHITE BLOOD COUNT 10.8 K/mm3 (4.0-10.0)
[2020-06-15 09:18] LABS: POTASSIUM 4.1 mmol/L (3.5-5.1)
[2020-06-15 09:24] LABS: ALBUMIN 1.6 g/dl (3.4-5.0); BLOOD UREA NITROGEN 37.9 mg/dL (7-18); CALCIUM 7.8 mg/dL (8.5-10.1); MAGNESIUM 1.7 mg/dL (1.8-2.4)
[2020-06-15 09:27] LABS: CREATININE 3.9 mg/dL (0.55-1.3)
[2020-06-15 09:28] LABS: BILIRUBIN,TOTAL 0.8 mg/dL (0.2-1)
[2020-06-15] MEDS ORDERED: SODIUM CHLORIDE 250 ML IV PRN (09:35)
[2020-06-15] MEDS: DOCUSATE SODIUM 100 MG CAPSULE (FP) PO SCH ×2 (10:00→21:53)
[2020-06-15] MEDS: POLYETHYLENE GLYCOL 3350 119 GM BTL PO SCH (10:00)
[2020-06-15] MEDS: ACETAMINOPHEN 325 MG TABLET (FP) PO PRN ×2 (10:25→21:52)
[2020-06-15] MEDS: PANTOPRAZOLE 40 MG TABLET PO SCH (12:47)
[2020-06-15] MEDS: amLODIPine BESYLATE 5 MG TABLET (FP) PO SCH (12:47)
[2020-06-15] MEDS: VITAMIN B COMP W-C 1 EA TABLET (NEPHRO-VITE) PO SCH (12:47)
[2020-06-15] MEDS: TIMOLOL 0.25% OPHTHALMIC SOL 5 ML BOTTLE OU SCH ×2 (12:54→21:52)
[2020-06-15] MEDS: BACITRACIN 15 GM TUBE TOPICAL OINTMENT TP SCH (13:09)
[2020-06-15] MEDS ORDERED: INSULIN (NOVOLOG) ASPART 100 UNITS/ML 10ML VIAL ONE (16:15)
[2020-06-15] MEDS: SENNOSIDES 8.6MG TABLET (FP) PO SCH (21:52)
[2020-06-16] MEDS: HEPARIN NA (PORCINE) 5,000 UNITS/ML 1ML VIAL SQ SCH ×3 (02:40→18:28)
[2020-06-16] MEDS ORDERED: PIPERACILLIN/TAZOBACTAM 2.25 GM VIAL IVPB ONE ×3 (02:42→17:03)
[2020-06-16] MEDS ORDERED: DEXTROSE 5%-WATER - 50 ML IVPB ONE ×3 (02:43→17:04)
[2020-06-16] MEDS: PIPERACILLIN/TAZOB 2.25 GM 2.25 GM in DEXTROSE 5%-WATER - 50 ML IVPB SCH ×3 (02:45→18:27)
[2020-06-16] MEDS: INSULIN SLIDING SCALE (NOVOLOG) 1 VIAL SQ SCH ×4 (06:31→21:40)
[2020-06-16] MEDS: SODIUM CHLORIDE 1,000 ML IV SCH ×2 (06:31→18:26)
[2020-06-16 08:24] LABS: BASO % 0.9 % (0-2.0); EOS % 3.6 % (0-4.5); HEMATOCRIT 29.4 % (35.4-49); HEMOGLOBIN 9.8 GM/dL (11.7-16.9); LYMPH % 26.4 % (8-40); MCH 27.5 pg (25.7-33.7); MCHC 33.5 g/dl (32.0-35.9); MEAN CELL VOLUME 82.2 fl (80-96); MEAN PLT VOLUME 8.1 fl (7.5-11.1); MONO % 8.3 % (3.8-10.2); NEUT % 60.8 % (42.8-82.8); PLATELET COUNT 229 K/MM3 (134-434); RBC 3.57 M/mm3 (4.00-5.60); RDW 17.5 % (11.9-15.9); WHITE BLOOD COUNT 8.9 K/mm3 (4.0-10.0)
[2020-06-16 08:29] LABS: POTASSIUM 3.7 mmol/L (3.5-5.1)
[2020-06-16 08:39] LABS: CALCIUM 7.4 mg/dL (8.5-10.1)
[2020-06-16 08:40] LABS: ALBUMIN 1.6 g/dl (3.4-5.0); BLOOD UREA NITROGEN 24.7 mg/dL (7-18); MAGNESIUM 1.6 mg/dL (1.8-2.4)
[2020-06-16 08:43] LABS: CREATININE 2.8 mg/dL (0.55-1.3)
[2020-06-16 08:44] LABS: BILIRUBIN,TOTAL 0.6 mg/dL (0.2-1); TOT PROT 5.6 g/dl (6.4-8.2)
[2020-06-16] MEDS: DOCUSATE SODIUM 100 MG CAPSULE (FP) PO SCH ×2 (09:22→21:33)
[2020-06-16] MEDS: AMINO ACIDS/PROTEIN HYDROLYS 30 ML LIQUID.PKT PO SCH (09:22)
[2020-06-16] MEDS: amLODIPine BESYLATE 5 MG TABLET (FP) PO SCH (09:22)
[2020-06-16] MEDS: PANTOPRAZOLE 40 MG TABLET PO SCH (09:22)
[2020-06-16] MEDS: VITAMIN B COMP W-C 1 EA TABLET (NEPHRO-VITE) PO SCH (09:22)
[2020-06-16] MEDS: BACITRACIN 15 GM TUBE TOPICAL OINTMENT TP SCH (09:26)
[2020-06-16] MEDS: TIMOLOL 0.25% OPHTHALMIC SOL 5 ML BOTTLE OU SCH ×2 (09:26→21:40)
[2020-06-16] MEDS: POLYETHYLENE GLYCOL 3350 119 GM BTL PO SCH (09:28)
[2020-06-16] MEDS: ACETAMINOPHEN 325 MG TABLET (FP) PO PRN (18:34)
[2020-06-16] MEDS: SENNOSIDES 8.6MG TABLET (FP) PO SCH (21:33)
[2020-06-16] MEDS ORDERED: PT OWN MED DRAWER 7, Y5N ONE (22:22)
[2020-06-17] MEDS ORDERED: DEXTROSE 5%-WATER - 50 ML IVPB ONE ×3 (00:17→16:51)
[2020-06-17] MEDS ORDERED: PIPERACILLIN/TAZOBACTAM 2.25 GM VIAL IVPB ONE ×3 (00:17→16:51)
[2020-06-17] MEDS: ACETAMINOPHEN 325 MG TABLET (FP) PO PRN ×2 (01:27→11:40)
[2020-06-17] MEDS: HEPARIN NA (PORCINE) 5,000 UNITS/ML 1ML VIAL SQ SCH ×2 (01:28→14:34)
[2020-06-17] MEDS: SODIUM CHLORIDE 1,000 ML IV SCH (01:29)
[2020-06-17] MEDS: PIPERACILLIN/TAZOB 2.25 GM 2.25 GM in DEXTROSE 5%-WATER - 50 ML IVPB SCH ×2 (01:29→14:34)
[2020-06-17] MEDS: INSULIN SLIDING SCALE (NOVOLOG) 1 VIAL SQ SCH ×2 (06:22→14:34)
[2020-06-17] MEDS ORDERED: INSULIN (NOVOLOG) ASPART 100 UNITS/ML 10ML VIAL ONE (06:42)
[2020-06-17] MEDS: AMINO ACIDS/PROTEIN HYDROLYS 30 ML LIQUID.PKT PO SCH (09:00)
[2020-06-17 09:12] LABS: EOS % 4.1 % (0-4.5); HEMATOCRIT 29.7 % (35.4-49); LYMPH % 28.4 % (8-40); MCH 27.7 pg (25.7-33.7); MCHC 33.7 g/dl (32.0-35.9); MEAN CELL VOLUME 82.2 fl (80-96); MEAN PLT VOLUME 7.9 fl (7.5-11.1); MONO % 7.4 % (3.8-10.2); NEUT % 59.1 % (42.8-82.8); PLATELET COUNT 283 K/MM3 (134-434); RBC 3.61 M/mm3 (4.00-5.60); RDW 17.1 % (11.9-15.9); WHITE BLOOD COUNT 8.8 K/mm3 (4.0-10.0)
[2020-06-17 09:21] LABS: POTASSIUM 3.8 mmol/L (3.5-5.1)
[2020-06-17 09:24] LABS: ALBUMIN 1.7 g/dl (3.4-5.0); CALCIUM 7.5 mg/dL (8.5-10.1)
[2020-06-17 09:25] LABS: BLOOD UREA NITROGEN 36.1 mg/dL (7-18); MAGNESIUM 1.6 mg/dL (1.8-2.4)
[2020-06-17 09:28] LABS: CREATININE 3.6 mg/dL (0.55-1.3)
[2020-06-17 09:29] LABS: BILIRUBIN,TOTAL 0.7 mg/dL (0.2-1)
[2020-06-17] MEDS ORDERED: SODIUM CHLORIDE 250 ML IV PRN ×2 (09:38)
[2020-06-17] MEDS ORDERED: EPOETIN ALFA-EPBX 10,000 UNIT/ML VIAL SQ ONE (10:00)
[2020-06-17] MEDS ORDERED: CEFAZOLIN 3 GM in DEXTROSE 5%-WATER - 50 ML IVPB ONE (10:00)
[2020-06-17] MEDS: TIMOLOL 0.25% OPHTHALMIC SOL 5 ML BOTTLE OU SCH (10:10)
[2020-06-17] MEDS ORDERED: PT OWN MED DRAWER 7, Y5N ONE (10:38)
[2020-06-17] MEDS: POLYETHYLENE GLYCOL 3350 119 GM BTL PO SCH (11:32)
[2020-06-17] MEDS: BACITRACIN 15 GM TUBE TOPICAL OINTMENT TP SCH (14:33)
[2020-06-17] MEDS: PANTOPRAZOLE 40 MG TABLET PO SCH (14:34)
[2020-06-17] MEDS: VITAMIN B COMP W-C 1 EA TABLET (NEPHRO-VITE) PO SCH (14:34)
[2020-06-17] MEDS: DOCUSATE SODIUM 100 MG CAPSULE (FP) PO SCH (14:34)
[2020-06-17] MEDS: amLODIPine BESYLATE 5 MG TABLET (FP) PO SCH (14:34)
[2020-06-17 14:50] VITALS: BP 160/87; PULSE 92; TEMP 97.7
[2020-06-17] MEDS ORDERED: MAGNESIUM OXIDE 400 MG TABLET (FP) PO ONE (17:30)
== END 2020-06-17 18:21 | DRG 853 ==
LOC: JER 10:50 → JERBED 13:30 → J4W 16:56 → JICU 06-09 13:36 → J6S 06-14 00:56
PROVIDERS: ADMIT Internal Medicine; ATTEND Nurse Practitioner Family
PROC: 30233N1 Transfusion of Nonautologous Red Blood Cells into Peripheral Vein, Percutaneous Approach (ICD-10-PCS; 2020-06-09)
PROC: 0Y6N0Z0 Detachment at Left Foot, Complete, Open Approach (ICD-10-PCS; principal; 2020-06-09 16:00)
PROC: 0Y6J0Z1 Detachment at Left Lower Leg, High, Open Approach (ICD-10-PCS; 2020-06-13)
PROC: 5A1D70Z Performance of Urinary Filtration, Intermittent, Less than 6 Hours Per Day (ICD-10-PCS; 2020-06-17)
DX: A41.9 Sepsis, unspecified organism (principal); M72.6 Necrotizing fasciitis; N18.6 End stage renal disease; I12.0 Hypertensive chronic kidney disease with stage 5 chronic kidney disease or end stage renal disease; E87.2 Acidosis; E11.52 Type 2 diabetes mellitus with diabetic peripheral angiopathy with gangrene; N17.9 Acute kidney failure, unspecified; M86.172 Other acute osteomyelitis, left ankle and foot; M86.672 Other chronic osteomyelitis, left ankle and foot; Z99.2 Dependence on renal dialysis; E78.5 Hyperlipidemia, unspecified; I95.9 Hypotension, unspecified; D63.1 Anemia in chronic kidney disease; N25.0 Renal osteodystrophy; E86.1 Hypovolemia; D72.829 Elevated white blood cell count, unspecified; E11.649 Type 2 diabetes mellitus with hypoglycemia without coma; E11.69 Type 2 diabetes mellitus with other specified complication; K21.9 Gastro-esophageal reflux disease without esophagitis
CPT/HCPCS: 36415; 36430; 36600; 70450-TC; 71045-TC-FY; 72125-TC; 73523-TC-FY; 73610-TC-LT-FY; 80048; 80053; 82550; 82553; 82728; 82803; 82962; 83036; 83540; 83550; 83605; 83735; 84100; 84484; 85025; 85027; 85610; 85730; 86317; 86704; 86706; 86707; 86708; 86709; 86803; 86850; 86900; 86901; 86922; 87040; 87070; 87077; 87186; 87205; 87340; 88307-TC; 88311-TC; 93005; 93010; 94760; 97116-GP; 97162-GP; 99285-25; C9803; J1644; P9047; P9058; Q5106; U0003; U0005

== ENCOUNTER 2020-08-25 07:17 | Observation (INO) | payer OTHER ==
[2020-08-25] MEDS ORDERED: ACETAMINOPHEN 500 MG TABLET (FP) PO ONE (07:56)
[2020-08-25] MEDS ORDERED: ACETAMINOPHEN 325 MG TABLET (FP) ONE (08:14)
[2020-08-25 08:43] LABS: BASO % 0.4 % (0-2.0); EOS % 0.8 % (0-4.5); HEMATOCRIT 34.5 % (35.4-49); HEMOGLOBIN 11.7 GM/dL (11.7-16.9); LYMPH % 20.6 % (8-40); MCH 29.8 pg (25.7-33.7); MCHC 33.8 g/dl (32.0-35.9); MEAN CELL VOLUME 88.2 fl (80-96); MEAN PLT VOLUME 7.3 fl (7.5-11.1); NEUT % 71.2 % (42.8-82.8); PLATELET COUNT 153 K/MM3 (134-434); RBC 3.91 M/mm3 (4.00-5.60); RDW 15.8 % (11.9-15.9); WHITE BLOOD COUNT 9.5 K/mm3 (4.0-10.0)
[2020-08-25 08:55] LABS: CHLORIDE 106 mmol/L (98-107); SODIUM 138 mmol/L (136-145)
[2020-08-25 08:57] LABS: CALCIUM 9.3 mg/dL (8.5-10.1)
[2020-08-25 08:58] LABS: ALBUMIN 3.4 g/dl (3.4-5.0); ANION GAP 9 MMOL/L (8-16); BLOOD UREA NITROGEN 42.9 mg/dL (7-18); CO2 23 mmol/L (21-32); GLUCOSE,RANDOM 112 mg/dL (74-106)
[2020-08-25 09:01] LABS: CREATININE 4.4 mg/dL (0.55-1.3); SGOT/AST 26 U/L (15-37); SGPT/ALT 18 U/L (13-61)
[2020-08-25 09:02] LABS: BILIRUBIN,TOTAL 0.4 mg/dL (0.2-1); TOT PROT 7.7 g/dl (6.4-8.2)
[2020-08-25 09:04] LABS: ALK PHOS 106 U/L (45-117)
[2020-08-25] MEDS ORDERED: SODIUM CHLORIDE 250 ML IV PRN (12:20)
[2020-08-25 12:49] LABS: EPI CELLS 1 /uL (0-25.1); HYALINE CASTS 0 /uL (0-3.1); PH,URINE 6.5 (5.0-8.0); URINE APPEARANCE TURBID; URINE BACTERIA >9,000 /uL (0-1359); URINE BILIRUBIN NEGATIVE (NEGATIVE); URINE COLOR YELLOW; URINE GLUCOSE (UA) NEGATIVE (NEGATIVE); URINE KETONE TRACE (NEGATIVE); URINE LEUK ESTERASE 3+ (NEGATIVE); URINE NITRITE NEGATIVE (NEGATIVE); URINE PROTEIN 2+ (NEGATIVE); URINE RBC 154 /uL (0-23.9); URINE UROBILINOGEN 0.2 mg/dL (0.2-1.0); URINE WBC 8067 /uL (0-25.8)
[2020-08-25] MEDS ORDERED: ACETAMINOPHEN 325 MG TABLET (FP) PO PRN (12:49)
[2020-08-25] MEDS ORDERED: oxyCODONE HCL 10 MG SUSTAINED ACTING TABLET PO PRN (12:49)
[2020-08-25] MEDS ORDERED: SODIUM CHLORIDE 500 ML IV STA (12:53)
[2020-08-25] MEDS ORDERED: GABAPENTIN 100 MG CAPSULE ONE (13:00)
[2020-08-25] MEDS ORDERED: HEPARIN NA (PORCINE) 5,000 UNITS/ML 1ML VIAL ONE (13:00)
[2020-08-25] MEDS ORDERED: SODIUM CHLORIDE 1,000 ML IV SCH (13:00)
[2020-08-25] MEDS: HEPARIN NA (PORCINE) 5,000 UNITS/ML 1ML VIAL SQ SCH ×2 (13:07→22:10)
[2020-08-25] MEDS: GABAPENTIN 100 MG CAPSULE PO SCH (13:07)
[2020-08-25] MEDS: INSULIN SLIDING SCALE (NOVOLOG) 1 VIAL SQ SCH ×2 (19:01→22:12)
[2020-08-25] MEDS: DOCUSATE SODIUM 100 MG CAPSULE (FP) PO SCH (22:10)
[2020-08-25] MEDS: amLODIPine BESYLATE 5 MG TABLET (FP) PO SCH (22:10)
[2020-08-26 03:51] VITALS: BMI 21.3
[2020-08-26] MEDS: HEPARIN NA (PORCINE) 5,000 UNITS/ML 1ML VIAL SQ SCH ×3 (07:09→21:14)
[2020-08-26] MEDS: INSULIN SLIDING SCALE (NOVOLOG) 1 VIAL SQ SCH ×4 (07:09→21:14)
[2020-08-26 08:33] LABS: HEMATOCRIT 34.2 % (35.4-49); HEMOGLOBIN 11.3 GM/dL (11.7-16.9); MCH 29.2 pg (25.7-33.7); MCHC 33.2 g/dl (32.0-35.9); MEAN CELL VOLUME 87.9 fl (80-96); MEAN PLT VOLUME 7.7 fl (7.5-11.1); PLATELET COUNT 165 K/MM3 (134-434); RBC 3.89 M/mm3 (4.00-5.60); RDW 15.4 % (11.9-15.9)
[2020-08-26 08:53] LABS: CALCIUM 8.9 mg/dL (8.5-10.1)
[2020-08-26 08:54] LABS: BLOOD UREA NITROGEN 25.3 mg/dL (7-18); MAGNESIUM 1.9 mg/dL (1.8-2.4)
[2020-08-26 08:57] LABS: CREATININE 3.4 mg/dL (0.55-1.3)
[2020-08-26 08:59] LABS: BILIRUBIN,TOTAL 0.6 mg/dL (0.2-1)
[2020-08-26] MEDS ORDERED: ACETAMINOPHEN 325 MG TABLET (FP) PO PRN (09:22)
[2020-08-26] MEDS: GABAPENTIN 100 MG CAPSULE PO SCH (10:03)
[2020-08-26] MEDS: DOCUSATE SODIUM 100 MG CAPSULE (FP) PO SCH ×2 (10:03→21:15)
[2020-08-26] MEDS: PANTOPRAZOLE 40 MG TABLET PO SCH (10:08)
[2020-08-26] MEDS: traMADol HCL 50 MG TABLET PO PRN (10:09)
[2020-08-26] MEDS: TIMOLOL 0.25% OPHTHALMIC SOL 5 ML BOTTLE OU SCH ×2 (11:00→21:14)
[2020-08-26] MEDS ORDERED: TIMOLOL 0.25% OPHTHALMIC SOL 5 ML BOTTLE OU SCH (11:15)
[2020-08-26] MEDS ORDERED: PATIENT'S OWN MEDICATION (NON-FORMULARY) (Brinzolamide/Brimonidine Tart [Simbrinza 1%-0.2% OU SCH (11:15)
[2020-08-26] MEDS ORDERED: SODIUM CHLORIDE 250 ML IV PRN (11:17)
[2020-08-26] MEDS ORDERED: DEXTROSE 5%-WATER - 50 ML IVPB ONE (12:54)
[2020-08-26] MEDS ORDERED: cefTRIAXone SODIUM 1 GM VIAL ONE (12:54)
[2020-08-26] MEDS: CEFTRIAXONE 1 GM in DEXTROSE 5%-WATER - 50 ML IVPB SCH (12:59)
[2020-08-26] MEDS: SEVELAMER CARBONATE 800 MG TAB (FP) PO SCH (16:30)
[2020-08-26] MEDS: BRIMONIDINE TARTRATE 0.2% OPHTHALMIC 5 ML BOTTLE OU SCH (21:14)
[2020-08-26] MEDS: amLODIPine BESYLATE 5 MG TABLET (FP) PO SCH (21:14)
[2020-08-26] MEDS: DORZOLAMIDE 2% HCL OPHTHALMIC SOLUTION 10 ML BOTTLE OU SCH (21:15)
[2020-08-26] MEDS ORDERED: PATIENT'S OWN MEDICATION (NON-FORMULARY) (Netarsudil Mesylate [Rhopressa] 2.5 ML Drops) OU SCH (22:00)
[2020-08-27] MEDS: traMADol HCL 50 MG TABLET PO PRN ×2 (02:32→12:04)
[2020-08-27] MEDS: INSULIN SLIDING SCALE (NOVOLOG) 1 VIAL SQ SCH ×3 (06:00→16:40)
[2020-08-27] MEDS: HEPARIN NA (PORCINE) 5,000 UNITS/ML 1ML VIAL SQ SCH ×2 (06:00→13:45)
[2020-08-27] MEDS ORDERED: DEXTROSE 5%-WATER - 50 ML IVPB ONE (09:29)
[2020-08-27] MEDS ORDERED: cefTRIAXone SODIUM 1 GM VIAL ONE (09:29)
[2020-08-27] MEDS: SEVELAMER CARBONATE 800 MG TAB (FP) PO SCH ×3 (09:33→16:35)
[2020-08-27] MEDS: PANTOPRAZOLE 40 MG TABLET PO SCH (09:33)
[2020-08-27] MEDS: TIMOLOL 0.25% OPHTHALMIC SOL 5 ML BOTTLE OU SCH (09:34)
[2020-08-27] MEDS: DORZOLAMIDE 2% HCL OPHTHALMIC SOLUTION 10 ML BOTTLE OU SCH (09:34)
[2020-08-27] MEDS: DOCUSATE SODIUM 100 MG CAPSULE (FP) PO SCH (09:34)
[2020-08-27] MEDS: BRIMONIDINE TARTRATE 0.2% OPHTHALMIC 5 ML BOTTLE OU SCH (09:34)
[2020-08-27] MEDS ORDERED: INSULIN (NOVOLOG) ASPART 100 UNITS/ML 10ML VIAL ONE (09:42)
[2020-08-27 09:59] LABS: HEMOGLOBIN 11.2 GM/dL (11.7-16.9); MCH 29.3 pg (25.7-33.7); MCHC 32.9 g/dl (32.0-35.9); MEAN CELL VOLUME 89.1 fl (80-96); MEAN PLT VOLUME 7.6 fl (7.5-11.1); PLATELET COUNT 168 K/MM3 (134-434); RBC 3.82 M/mm3 (4.00-5.60); RDW 15.7 % (11.9-15.9); WHITE BLOOD COUNT 6.1 K/mm3 (4.0-10.0)
[2020-08-27 10:14] LABS: CALCIUM 9.1 mg/dL (8.5-10.1)
[2020-08-27 10:15] LABS: ALBUMIN 3.1 g/dl (3.4-5.0); BLOOD UREA NITROGEN 26.6 mg/dL (7-18)
[2020-08-27 10:18] LABS: CREATININE 4.1 mg/dL (0.55-1.3)
[2020-08-27 10:20] LABS: BILIRUBIN,TOTAL 0.5 mg/dL (0.2-1); TOT PROT 7.3 g/dl (6.4-8.2)
[2020-08-27] MEDS: CEFTRIAXONE 1 GM in DEXTROSE 5%-WATER - 50 ML IVPB SCH (11:04)
[2020-08-27] MEDS ORDERED: SULFAMETHOXAZOLE/TRIMETHOPRIM 800MG/160MG D.S. TABLET PO ONE (13:15)
[2020-08-27 18:13] VITALS: BP 140/83; PULSE 92; TEMP 98.2
== END 2020-08-27 17:00 | disposition home or self-care (01) ==
LOC: JER 07:17 → JERBED 11:51 → J5S 18:20
PROVIDERS: ATTEND Student in an Organized Health Care Education/Training Program
PROC: 3E033GC Introduction of Other Therapeutic Substance into Peripheral Vein, Percutaneous Approach (ICD-10-PCS; principal; 2020-08-25)
PROC: 3E013GC Introduction of Other Therapeutic Substance into Subcutaneous Tissue, Percutaneous Approach (ICD-10-PCS; 2020-08-25)
DX: R26.2 Difficulty in walking, not elsewhere classified (principal); W18.39XA Other fall on same level, initial encounter; Y93.89 Activity, other specified; Y92.013 Bedroom of single-family (private) house as the place of occurrence of the external cause; Z89.512 Acquired absence of left leg below knee; Z97.14 Presence of artificial left leg (complete) (partial); I25.10 Atherosclerotic heart disease of native coronary artery without angina pectoris; I13.2 Hypertensive heart and chronic kidney disease with heart failure and with stage 5 chronic kidney disease, or end stage renal disease; N18.6 End stage renal disease; I50.9 Heart failure, unspecified; Z99.2 Dependence on renal dialysis; R82.71 Bacteriuria; E11.9 Type 2 diabetes mellitus without complications; Z79.4 Long term (current) use of insulin; K22.70 Barrett's esophagus without dysplasia; R00.0 Tachycardia, unspecified
CPT/HCPCS: 36415; 71045-TC-FY; 73523-TC-FY; 73562-TC-LT-FY; 73562-TC-RT-FY; 80053; 81003; 82550; 82962; 83735; 84100; 84484; 85025; 85027; 86803; 87086; 87186; 87340; 93005; 93010; 96360; 96372; 97116-GP; 97161-GP; 99285-25; C9803; G0378; J1644; U0003; U0005

== ENCOUNTER 2024-08-07 09:00 | Inpatient (IN) | payer OTHER ==
[2024-08-07] MEDS ORDERED: SODIUM CHLORIDE 250 ML IV PRN (11:09)
[2024-08-07] MEDS ORDERED: VANCOMYCIN HCL 1,500 MG in DEXTROSE 5%-WATER - 500 ML IVPB ONE (11:23)
[2024-08-07 11:38] LABS: ABSOLUTE IMMATURE GRANULOCYTES 0.15 x10^3/uL (0.0-0.031); BASOPHILS # 0.05 x10^3/uL (0.01-0.08); EOSINOPHIL % 0.2 % (0.8-7.0); EOSINOPHILS # 0.03 x10^3/uL (0.04-0.54); HEMATOCRIT 32.4 % (40.1-51.0); HEMOGLOBIN 10.3 g/dL (13.7-17.5); MCHC 31.8 g/dl (32.3-36.5); MEAN CELL VOLUME 94.2 fl (79.0-92.2); MEAN PLT VOLUME 10.2 fl (9.4-12.4); MONOCYTE # 0.94 x10^3/uL (0.30-0.82); MONOCYTE % 6.2 % (5.3-12.2); PLATELET COUNT 268 x10^3/uL (163-337); RDW 14.8 % (12.2-16.6)
[2024-08-07 11:48] LABS: INR 1.12 (0.83-1.09); PROTHROMBIN TIME (PATIENT) 12.2 SEC (9.7-13.0)
[2024-08-07 11:51] LABS: ACTIVATED PTT 28.5 SECONDS (25.2-36.5)
[2024-08-07 12:06] LABS: CHLORIDE 102 mmol/L (98-107); SODIUM 139 mmol/L (136-145)
[2024-08-07 12:08] LABS: CALCIUM 9.6 mg/dL (8.5-10.1)
[2024-08-07 12:09] LABS: ALBUMIN 2.9 g/dl (3.4-5.0); ANION GAP 21 mmol/L (4-13); BLOOD UREA NITROGEN 85.4 mg/dL (7-18); CO2 16 mmol/L (21-32); GLUCOSE,RANDOM 251 mg/dL (74-106); MAGNESIUM 2.4 mg/dL (1.8-2.4)
[2024-08-07 12:12] LABS: PHOSPHOROUS 7.4 mg/dL (2.5-4.9); SGOT/AST 10 U/L (15-37); SGPT/ALT < 6 U/L (13-61)
[2024-08-07 12:13] LABS: BILIRUBIN,TOTAL 0.4 mg/dL (0.2-1); TOT PROT 6.9 g/dl (6.4-8.2)
[2024-08-07 12:14] LABS: ALK PHOS 97 U/L (45-117)
[2024-08-07 12:22] LABS: VENOUS BASE EXCESS -12.1 mmol/L (-2-2); VENOUS O2 SATURATION 45.3 % (70-80); VENOUS PCO2 38.4 mmHg (38-52); VENOUS PH 7.209 (7.310-7.410)
[2024-08-07 12:29] LABS: CREATININE 11.1 mg/dL (0.55-1.3)
[2024-08-07] MEDS: PIPERACILLIN/TAZOB 3.375 GM 3.375 GM in DEXTROSE 5%-WATER - 50 ML IVPB ONE (12:29)
[2024-08-07] MEDS: VANCOMYCIN PREMIX 1.5 GM 1,500 MG/300 ML BAG IVPB ONE (12:51)
[2024-08-07] MEDS: SODIUM CHLORIDE 0.9% 500 ML INFUS.BAG IV ONE (12:52)
[2024-08-07 13:11] LABS: HEPATITIS B SURF AG NON-MATERN NON-REACTIVE (NONREACTIVE)
[2024-08-07 13:33] LABS: ERYTHROCYTE SEDIMENTATION RATE 110 mm/hr (0-20)
[2024-08-07 13:40] LABS: HCV DIAGNOSTIC IN-HOUSE W/RFLX NON-REACTIVE (NONREACTIVE)
[2024-08-07] MEDS: HEPARIN NA (PORCINE) 5,000 UNITS/ML 1ML VIAL SQ SCH (16:14)
[2024-08-07] MEDS ORDERED: HEPARIN NA (PORCINE) 5,000 UNITS/ML 1ML VIAL ONE (16:15)
[2024-08-07] MEDS: INSULIN ASPART SLIDING SCALE (NOVOLOG) 1 VIAL SQ SCH (16:43)
[2024-08-07] MEDS ORDERED: INSULIN ASPART SLIDING SCALE (NOVOLOG) 1 VIAL SQ ONE ×2 (16:44→16:46)
[2024-08-07] MEDS: SEVELAMER CARBONATE 800 MG TAB (FP) PO SCH (17:41)
[2024-08-07] MEDS ORDERED: PIPERACILLIN/TAZOB 3.375 GM 3.375 GM in DEXTROSE 5%-WATER - 50 ML IVPB SCH ×2 (18:00→20:00)
[2024-08-07] MEDS ORDERED: PIPERACILLIN/TAZOB 2.25 GM 2.25 GM in DEXTROSE 5%-WATER - 50 ML IVPB SCH (20:00)
[2024-08-07] MEDS ORDERED: PIPERACILLIN/TAZOB 2.25 GM 2.25 GM/50 ML BAG IVPB SCH (20:00)
[2024-08-07] MEDS: PIPERACILLIN/TAZOB 2.25 GM 2.25 GM in DEXTROSE 5%-WATER - 50 ML IVPB SCH (20:27)
[2024-08-07] MEDS: SENNOSIDES 8.6MG TABLET (FP) PO SCH (21:41)
[2024-08-07] MEDS ORDERED: NETARSUDIL MESYLATE (RHOPRESSA) (NON-FORMULARY) 0.02% 2.5 ML BOTTLE OU SCH (22:00)
[2024-08-07] MEDS ORDERED: PATIENT'S OWN MEDICATION (NON-FORMULARY) (Netarsudil Mesylat/Latanoprost [Rocklatan 0.02%- OU SCH (22:00)
[2024-08-07] MEDS ORDERED: PATIENT'S OWN MEDICATION (NON-FORMULARY) (Brinzolamide/Brimonidine Tart [Simbrinza 1%-0.2% OU SCH (22:00)
[2024-08-07] MEDS ORDERED: acetaZOLAMIDE 250 MG TABLET PO SCH (22:00)
[2024-08-07] MEDS: DORZOLAMIDE 2% HCL OPHTHALMIC SOLUTION 10 ML BOTTLE OU SCH (22:59)
[2024-08-07] MEDS: BRIMONIDINE TARTRATE 0.2% OPHTHALMIC 5 ML BOTTLE OU SCH (22:59)
[2024-08-08 07:02] LABS: HEMOGLOBIN 8.8 g/dL (13.7-17.5); MCHC 31.4 g/dl (32.3-36.5); MEAN PLT VOLUME 10.1 fl (9.4-12.4); PLATELET COUNT 210 x10^3/uL (163-337); RDW 14.7 % (12.2-16.6)
[2024-08-08 07:15] LABS: POTASSIUM 3.1 mmol/L (3.5-5.1)
[2024-08-08 07:25] LABS: CALCIUM 8.8 mg/dL (8.5-10.1)
[2024-08-08 07:26] LABS: ALBUMIN 2.4 g/dl (3.4-5.0); MAGNESIUM 1.9 mg/dL (1.8-2.4)
[2024-08-08 07:28] LABS: CREATININE 6.3 mg/dL (0.55-1.3)
[2024-08-08 07:29] LABS: BILIRUBIN,TOTAL 0.6 mg/dL (0.2-1); BLOOD UREA NITROGEN 43.8 mg/dL (7-18); PHOSPHOROUS 4.4 mg/dL (2.5-4.9)
[2024-08-08] MEDS: POTASSIUM CHLORIDE TABS 20 MEQ TABLET.ER (FP) PO ONE (09:42)
[2024-08-08] MEDS: PANTOPRAZOLE 40 MG TABLET PO SCH (09:42)
[2024-08-08] MEDS: GABAPENTIN 100 MG CAPSULE PO SCH (09:42)
[2024-08-08] MEDS: TIMOLOL 0.5% OPHTHALMIC SOL 5 ML BOTTLE OD SCH (09:44)
[2024-08-08] MEDS: ASPIRIN COATED 81 MG TABLET.EC PO ONE (09:47)
[2024-08-08] MEDS ORDERED: PATIENT'S OWN MEDICATION (NON-FORMULARY) (Sodium Zirconium Cyclosilicate 10 GM Packet) PO SCH (10:00)
[2024-08-08] MEDS ORDERED: TIMOLOL 0.25% OPHTHALMIC SOL 5 ML BOTTLE OU SCH (10:00)
[2024-08-08] MEDS: MIDODRINE HCL 5 MG TABLET PO SCH ×2 (12:15→14:06)
[2024-08-08] MEDS ORDERED: SODIUM CHLORIDE 250 ML IV PRN (12:52)
[2024-08-08] MEDS ORDERED: EPOETIN ALFA-EPBX 10,000 UNIT/ML VIAL SQ ONE (13:15)
[2024-08-08] MEDS: VANCOMYCIN/WATER FOR INJ (PEG) 1,000 MG/200 ML BAG IVPB SCH (13:31)
[2024-08-08] MEDS: ALBUMIN HUMAN 25% 12.5 GM/50 ML VIAL IV SCH (13:53)
[2024-08-08] MEDS ORDERED: MIDODRINE HCL 5 MG TABLET PO SCH (14:00)
[2024-08-08] MEDS: SODIUM CHLORIDE 250 ML IV STA (14:05)
[2024-08-08 16:09] LABS: HEMATOCRIT 31.1 % (40.1-51.0); HEMOGLOBIN 9.7 g/dL (13.7-17.5); MCHC 31.2 g/dl (32.3-36.5); MEAN CELL VOLUME 94.5 fl (79.0-92.2); MEAN PLT VOLUME 10.2 fl (9.4-12.4); PLATELET COUNT 218 x10^3/uL (163-337)
[2024-08-08] MEDS: INSULIN ASPART SLIDING SCALE (NOVOLOG) 1 VIAL SQ SCH (16:33)
[2024-08-08] MEDS ORDERED: HEPARIN NA (PORCINE) 5,000 UNITS/ML 1ML VIAL IVPUSH PRN (17:15)
[2024-08-08] MEDS: HEPARIN NA (PORCINE) 5,000 UNITS/ML 1ML VIAL IVPUSH PRN (19:37)
[2024-08-08] MEDS: HEPARIN - 25,000 UNIT in SODIUM CHLORIDE 495 ML IV SCH (19:40)
[2024-08-08] MEDS: ATORVASTATIN CA 40 MG TABLET (FP) PO SCH (21:57)
[2024-08-09 07:03] LABS: HEMATOCRIT 30.4 % (40.1-51.0); HEMOGLOBIN 9.3 g/dL (13.7-17.5); MCHC 30.6 g/dl (32.3-36.5); MEAN CELL VOLUME 95.3 fl (79.0-92.2); MEAN PLT VOLUME 10.1 fl (9.4-12.4); PLATELET COUNT 233 x10^3/uL (163-337); RDW 15.2 % (12.2-16.6)
[2024-08-09 07:20] LABS: POTASSIUM 3.8 mmol/L (3.5-5.1)
[2024-08-09 07:23] LABS: ALBUMIN 2.3 g/dl (3.4-5.0); BLOOD UREA NITROGEN 57.3 mg/dL (7-18); CALCIUM 9.1 mg/dL (8.5-10.1)
[2024-08-09 07:27] LABS: CREATININE 7.2 mg/dL (0.55-1.3)
[2024-08-09 07:28] LABS: BILIRUBIN,TOTAL 0.5 mg/dL (0.2-1); TOT PROT 5.8 g/dl (6.4-8.2)
[2024-08-09] MEDS: ASPIRIN 81 MG CHEWABLE TABLETS PO SCH (09:05)
[2024-08-09] MEDS: COLLAGENASE CLOSTRIDIUM HIST. 30 GRAMS TUBE TP SCH (17:25)
[2024-08-10 07:17] LABS: HEMATOCRIT 30.1 % (40.1-51.0); HEMOGLOBIN 9.2 g/dL (13.7-17.5); MCHC 30.6 g/dl (32.3-36.5); MEAN PLT VOLUME 10.1 fl (9.4-12.4); PLATELET COUNT 233 x10^3/uL (163-337); RDW 15.2 % (12.2-16.6)
[2024-08-10 07:29] LABS: CHLORIDE 99 mmol/L (98-107); POTASSIUM 3.6 mmol/L (3.5-5.1); SODIUM 135 mmol/L (136-145)
[2024-08-10 07:36] LABS: BLOOD UREA NITROGEN 71.5 mg/dL (7-18); GLUCOSE,RANDOM 148 mg/dL (74-106)
[2024-08-10 07:38] LABS: ANION GAP 17 mmol/L (4-13); CALCIUM 9.3 mg/dL (8.5-10.1); CO2 18 mmol/L (21-32)
[2024-08-10 07:40] LABS: CREATININE 7.9 mg/dL (0.55-1.3)
[2024-08-10] MEDS: ALBUMIN HUMAN 25% 12.5 GM/50 ML VIAL IV SCH (09:05)
[2024-08-10] MEDS: EPOETIN ALFA-EPBX 10,000 UNIT/ML VIAL SQ ONE (09:36)
[2024-08-11] MEDS: HEPARIN NA (PORCINE) 5,000 UNITS/ML 1ML VIAL SQ SCH (06:54)
[2024-08-11 07:22] LABS: POTASSIUM 3.9 mmol/L (3.5-5.1)
[2024-08-11 07:29] LABS: CALCIUM 9.5 mg/dL (8.5-10.1); HEMATOCRIT 28.6 % (40.1-51.0); HEMOGLOBIN 8.8 g/dL (13.7-17.5); MCHC 30.8 g/dl (32.3-36.5); MEAN CELL VOLUME 96.6 fl (79.0-92.2); MEAN PLT VOLUME 9.9 fl (9.4-12.4); PLATELET COUNT 229 x10^3/uL (163-337); RDW 15.7 % (12.2-16.6)
[2024-08-11 07:33] LABS: CREATININE 4.5 mg/dL (0.55-1.3)
[2024-08-11 07:45] LABS: BLOOD UREA NITROGEN 30.9 mg/dL (7-18)
[2024-08-11] MEDS ORDERED: VANCOMYCIN/WATER FOR INJ (PEG) 1,000 MG/200 ML BAG IVPB ONE (17:19)
[2024-08-11] MEDS: VANCOMYCIN/WATER FOR INJ (PEG) 1,000 MG/200 ML BAG IVPB ONE (17:48)
[2024-08-12 08:48] LABS: HEMATOCRIT 27.9 % (40.1-51.0); HEMOGLOBIN 8.6 g/dL (13.7-17.5); MCHC 30.8 g/dl (32.3-36.5); MEAN CELL VOLUME 96.2 fl (79.0-92.2); PLATELET COUNT 241 x10^3/uL (163-337); RDW 15.5 % (12.2-16.6)
[2024-08-12] MEDS ORDERED: SODIUM CHLORIDE 250 ML IV PRN (14:12)
[2024-08-12 14:47] LABS: POTASSIUM 3.2 mmol/L (3.5-5.1)
[2024-08-12 14:52] LABS: CALCIUM 9.4 mg/dL (8.5-10.1)
[2024-08-12 14:53] LABS: BLOOD UREA NITROGEN 35.5 mg/dL (7-18)
[2024-08-12 14:56] LABS: CREATININE 4.8 mg/dL (0.55-1.3)
[2024-08-12] MEDS: EPOETIN ALFA-EPBX 10,000 UNIT/ML VIAL IVPUSH ONE (15:37)
[2024-08-12] MEDS: POTASSIUM CHLORIDE ORAL LIQUID 20 MEQ/15 ML PO ONE (16:38)
[2024-08-12] MEDS ORDERED: PIPERACILLIN/TAZOBACTAM 2.25 GM VIAL IVPB ONE (17:13)
[2024-08-12] MEDS: MIDODRINE HCL 5 MG TABLET PO SCH (21:39)
[2024-08-13 07:09] LABS: HEMATOCRIT 29.7 % (40.1-51.0); HEMOGLOBIN 9.1 g/dL (13.7-17.5); MCHC 30.6 g/dl (32.3-36.5); MEAN CELL VOLUME 95.8 fl (79.0-92.2); MEAN PLT VOLUME 10.1 fl (9.4-12.4); PLATELET COUNT 241 x10^3/uL (163-337); RDW 15.6 % (12.2-16.6)
[2024-08-13 07:33] LABS: POTASSIUM 3.5 mmol/L (3.5-5.1)
[2024-08-13 07:38] LABS: BLOOD UREA NITROGEN 22.2 mg/dL (7-18); CALCIUM 9.2 mg/dL (8.5-10.1)
[2024-08-13 07:42] LABS: CREATININE 3.5 mg/dL (0.55-1.3)
[2024-08-13] MEDS ORDERED: SODIUM CHLORIDE 250 ML IV PRN (15:34)
[2024-08-13] MEDS: ACETAMINOPHEN 1000 MG/100 ML BAG IVPB PRN (18:56)
[2024-08-13] MEDS ORDERED: ATORVASTATIN CA 20 MG TABLET (FP) ONE (20:54)
[2024-08-14 07:22] LABS: HEMOGLOBIN 9.2 g/dL (13.7-17.5); MCHC 30.7 g/dl (32.3-36.5); MEAN CELL VOLUME 96.8 fl (79.0-92.2); MEAN PLT VOLUME 10.2 fl (9.4-12.4); PLATELET COUNT 250 x10^3/uL (163-337); RDW 15.8 % (12.2-16.6)
[2024-08-14 07:31] LABS: POTASSIUM 3.7 mmol/L (3.5-5.1)
[2024-08-14 07:40] LABS: CALCIUM 9.7 mg/dL (8.5-10.1)
[2024-08-14 07:41] LABS: BLOOD UREA NITROGEN 30.7 mg/dL (7-18)
[2024-08-14 07:44] LABS: CREATININE 4.6 mg/dL (0.55-1.3)
[2024-08-14] MEDS ORDERED: SODIUM CHLORIDE 250 ML IV PRN (09:39)
[2024-08-14] MEDS: EPOETIN ALFA-EPBX 10,000 UNIT/ML VIAL IVPUSH ONE (10:27)
[2024-08-15 07:21] LABS: HEMATOCRIT 30.5 % (40.1-51.0); HEMOGLOBIN 9.4 g/dL (13.7-17.5); MCHC 30.8 g/dl (32.3-36.5); MEAN CELL VOLUME 95.9 fl (79.0-92.2); MEAN PLT VOLUME 10.2 fl (9.4-12.4); PLATELET COUNT 252 x10^3/uL (163-337); RDW 15.9 % (12.2-16.6)
[2024-08-15 08:05] LABS: ALBUMIN 2.1 g/dl (3.4-5.0); CALCIUM 9.3 mg/dL (8.5-10.1)
[2024-08-15 08:07] LABS: BLOOD UREA NITROGEN 20.4 mg/dL (7-18)
[2024-08-15] MEDS: AMINO ACIDS/PROTEIN HYDROLYS 30 ML LIQUID.PKT PO SCH (08:07)
[2024-08-15 08:10] LABS: CREATININE 3.3 mg/dL (0.55-1.3); PHOSPHOROUS 2.8 mg/dL (2.5-4.9)
[2024-08-15 08:11] LABS: BILIRUBIN,TOTAL 0.7 mg/dL (0.2-1); TOT PROT 6.2 g/dl (6.4-8.2)
[2024-08-15] MEDS: VANCOMYCIN 1 GM PREMIX (F) 1 GM/200 ML BAG IVPB ONE (09:40)
[2024-08-15] MEDS: TRIMETHOBENZAMIDE HCL 200MG/2ML INJ IM PRN (13:38)
[2024-08-15] MEDS: ACETAMINOPHEN 1000 MG/100 ML BAG IVPB PRN (14:06)
[2024-08-15] MEDS ORDERED: PIPERACILLIN/TAZOBACTAM 2.25 GM VIAL IVPB ONE (17:34)
[2024-08-16 07:44] LABS: INR 1.34 (0.83-1.09); PROTHROMBIN TIME (PATIENT) 14.6 SEC (9.7-13.0)
[2024-08-16] MEDS ORDERED: SODIUM CHLORIDE 250 ML IV PRN (16:10)
[2024-08-16] MEDS: ACETAMINOPHEN 325 MG TABLET (FP) PO PRN (21:19)
[2024-08-16] MEDS: LACTOBACILLUS ACIDOPHILUS 1 TABLET PO SCH (21:20)
[2024-08-17 07:53] LABS: HEMATOCRIT 29.7 % (40.1-51.0); HEMOGLOBIN 9.1 g/dL (13.7-17.5); MCHC 30.6 g/dl (32.3-36.5); MEAN CELL VOLUME 94.3 fl (79.0-92.2); MEAN PLT VOLUME 9.7 fl (9.4-12.4); PLATELET COUNT 285 x10^3/uL (163-337); RDW 15.9 % (12.2-16.6)
[2024-08-17 07:54] LABS: INR 1.23 (0.83-1.09); PROTHROMBIN TIME (PATIENT) 13.5 SEC (9.7-13.0)
[2024-08-17 07:59] LABS: POTASSIUM 3.8 mmol/L (3.5-5.1)
[2024-08-17 08:09] LABS: ALBUMIN 1.9 g/dl (3.4-5.0)
[2024-08-17 08:13] LABS: BILIRUBIN,TOTAL 0.6 mg/dL (0.2-1)
[2024-08-17 08:24] LABS: BLOOD UREA NITROGEN 46.2 mg/dL (7-18); CREATININE 5.3 mg/dL (0.55-1.3)
[2024-08-17] MEDS: MIDODRINE HCL 5 MG TABLET PO SCH ×2 (10:00→15:39)
[2024-08-17] MEDS ORDERED: PROPOFOL 20 ML ONE (11:23)
[2024-08-17] MEDS ORDERED: LIDOCAINE HCL 1%, 10 MG/ML (20ML VIAL) ONE (11:32)
[2024-08-17] MEDS ORDERED: DEXAMETHASONE SOD PHOSPHATE 10 MG/1 ML VIAL ONE (11:33)
[2024-08-17] MEDS ORDERED: BUPIVACAINE HCL/PF 0.5% (5MG/ML) 10 ML VIAL ONE (11:33)
[2024-08-17] MEDS ORDERED: GENTAMICIN SO4 80 MG/2 ML VIAL ONE (11:34)
[2024-08-17] MEDS ORDERED: MIDAZOLAM HCL 2 MG/2 ML SINGLE DOSE VIAL ONE (11:51)
[2024-08-17] MEDS: PIPERACILLIN/TAZOBACTAM 3.375 GM VIAL IVPB ONE (12:02)
[2024-08-17] MEDS ORDERED: PIPERACILLIN/TAZOBACTAM 3.375 GM VIAL IVPB ONE (12:05)
[2024-08-17] MEDS ORDERED: SUCCINYLCHOLINE CHLORIDE 200 MG/10 ML SYRINGE ONE (12:11)
[2024-08-17] MEDS ORDERED: VANCOMYCIN 1,000 MG VIAL (RESTRICTED TO ID ONLY) ONE (12:19)
[2024-08-17] MEDS ORDERED: ONDANSETRON 4 MG/2 ML VIAL IVPUSH PRN (12:52)
[2024-08-17] MEDS ORDERED: oxyCODONE HCL 5 MG TABLET PO PRN (12:52)
[2024-08-17] MEDS ORDERED: TRIMETHOBENZAMIDE HCL 200MG/2ML INJ IM PRN (12:58)
[2024-08-17] MEDS ORDERED: SODIUM CHLORIDE 250 ML IV PRN (12:58)
[2024-08-17] MEDS: LACTATED RINGERS SOLUTION 1,000 ML IV SCH (14:11)
[2024-08-17] MEDS: HEPARIN NA (PORCINE) 5,000 UNITS/ML 1ML VIAL SQ SCH (15:41)
[2024-08-17] MEDS: INSULIN ASPART SLIDING SCALE (NOVOLOG) 1 VIAL SQ SCH (17:16)
[2024-08-17] MEDS: AMINO ACIDS/PROTEIN HYDROLYS 30 ML LIQUID.PKT PO SCH (18:06)
[2024-08-17] MEDS: SEVELAMER CARBONATE 800 MG TAB (FP) PO SCH (18:06)
[2024-08-17] MEDS: PIPERACILLIN/TAZOB 2.25 GM 2.25 GM in DEXTROSE 5%-WATER - 50 ML IVPB SCH (18:13)
[2024-08-17] MEDS: ACETAMINOPHEN 325 MG TABLET (FP) PO PRN (21:27)
[2024-08-17] MEDS: LACTOBACILLUS ACIDOPHILUS 1 TABLET PO SCH (21:27)
[2024-08-17] MEDS: ATORVASTATIN CA 40 MG TABLET (FP) PO SCH (21:28)
[2024-08-17] MEDS: SENNOSIDES 8.6MG TABLET (FP) PO SCH (21:28)
[2024-08-17] MEDS: BRIMONIDINE TARTRATE 0.2% OPHTHALMIC 5 ML BOTTLE OU SCH (21:33)
[2024-08-17] MEDS: DORZOLAMIDE 2% HCL OPHTHALMIC SOLUTION 10 ML BOTTLE OU SCH (21:34)
[2024-08-17] MEDS ORDERED: NETARSUDIL MESYLATE (RHOPRESSA) (NON-FORMULARY) 0.02% 2.5 ML BOTTLE OU SCH (22:00)
[2024-08-18 09:00] LABS: CALCIUM 9.3 mg/dL (8.5-10.1)
[2024-08-18 09:01] LABS: ALBUMIN 2.1 g/dl (3.4-5.0); BLOOD UREA NITROGEN 28.1 mg/dL (7-18); MAGNESIUM 1.9 mg/dL (1.8-2.4)
[2024-08-18 09:03] VITALS: BMI 20.4
[2024-08-18 09:03] LABS: HEMATOCRIT 29.8 % (40.1-51.0); HEMOGLOBIN 9.2 g/dL (13.7-17.5); MCHC 30.9 g/dl (32.3-36.5); MEAN PLT VOLUME 9.7 fl (9.4-12.4); PLATELET COUNT 310 x10^3/uL (163-337); RDW 15.8 % (12.2-16.6)
[2024-08-18 09:04] LABS: CREATININE 3.8 mg/dL (0.55-1.3); PHOSPHOROUS 3.5 mg/dL (2.5-4.9)
[2024-08-18 09:05] LABS: BILIRUBIN,TOTAL 0.5 mg/dL (0.2-1); TOT PROT 6.4 g/dl (6.4-8.2)
[2024-08-18] MEDS: ASPIRIN 81 MG CHEWABLE TABLETS PO SCH (10:38)
[2024-08-18] MEDS: GABAPENTIN 100 MG CAPSULE PO SCH (10:38)
[2024-08-18] MEDS: PANTOPRAZOLE 40 MG TABLET PO SCH (10:38)
[2024-08-18] MEDS: TIMOLOL 0.5% OPHTHALMIC SOL 5 ML BOTTLE OD SCH (11:15)
[2024-08-18] MEDS ORDERED: SODIUM CHLORIDE 250 ML IV PRN (16:27)
[2024-08-18] MEDS ORDERED: oxyCODONE HCL 5 MG TABLET PO PRN (17:55)
[2024-08-18] MEDS ORDERED: TRIMETHOBENZAMIDE HCL 200MG/2ML INJ IM PRN (17:55)
[2024-08-18] MEDS: INSULIN ASPART SLIDING SCALE (NOVOLOG) 1 VIAL SQ SCH (18:55)
[2024-08-18] MEDS: MIDODRINE HCL 5 MG TABLET PO SCH (19:20)
[2024-08-18] MEDS: SEVELAMER CARBONATE 800 MG TAB (FP) PO SCH (19:21)
[2024-08-18] MEDS: PIPERACILLIN/TAZOB 2.25 GM 2.25 GM in DEXTROSE 5%-WATER - 50 ML IVPB SCH (19:30)
[2024-08-18] MEDS: HEPARIN NA (PORCINE) 5,000 UNITS/ML 1ML VIAL SQ SCH (21:21)
[2024-08-18] MEDS: LACTOBACILLUS ACIDOPHILUS 1 TABLET PO SCH (21:21)
[2024-08-18] MEDS: ATORVASTATIN CA 40 MG TABLET (FP) PO SCH (21:21)
[2024-08-18] MEDS: SENNOSIDES 8.6MG TABLET (FP) PO SCH (21:21)
[2024-08-18] MEDS ORDERED: NETARSUDIL MESYLATE (RHOPRESSA) (NON-FORMULARY) 0.02% 2.5 ML BOTTLE OU SCH (22:00)
[2024-08-19] MEDS: DORZOLAMIDE 2% HCL OPHTHALMIC SOLUTION 10 ML BOTTLE OU SCH (02:59)
[2024-08-19] MEDS: BRIMONIDINE TARTRATE 0.2% OPHTHALMIC 5 ML BOTTLE OU SCH (02:59)
[2024-08-19] MEDS: AMINO ACIDS/PROTEIN HYDROLYS 30 ML LIQUID.PKT PO SCH (08:39)
[2024-08-19 09:30] LABS: HEMATOCRIT 29.3 % (40.1-51.0); HEMOGLOBIN 9.1 g/dL (13.7-17.5); MCHC 31.1 g/dl (32.3-36.5); MEAN CELL VOLUME 93.3 fl (79.0-92.2); MEAN PLT VOLUME 9.7 fl (9.4-12.4); PLATELET COUNT 301 x10^3/uL (163-337); RDW 15.9 % (12.2-16.6)
[2024-08-19 09:57] LABS: POTASSIUM 3.8 mmol/L (3.5-5.1)
[2024-08-19 10:41] LABS: BLOOD UREA NITROGEN 37.7 mg/dL (7-18); CALCIUM 9.4 mg/dL (8.5-10.1)
[2024-08-19 10:44] LABS: CREATININE 4.9 mg/dL (0.55-1.3); PHOSPHOROUS 5.4 mg/dL (2.5-4.9)
[2024-08-19 10:45] LABS: BILIRUBIN,TOTAL 0.5 mg/dL (0.2-1); TOT PROT 6.5 g/dl (6.4-8.2)
[2024-08-19] MEDS: EPOETIN ALFA-EPBX 10,000 UNIT/ML VIAL IVPUSH ONE (11:26)
[2024-08-19] MEDS: ASPIRIN 81 MG CHEWABLE TABLETS PO SCH (13:03)
[2024-08-19] MEDS: GABAPENTIN 100 MG CAPSULE PO SCH (13:03)
[2024-08-19] MEDS: PANTOPRAZOLE 40 MG TABLET PO SCH (13:03)
[2024-08-19] MEDS: TIMOLOL 0.5% OPHTHALMIC SOL 5 ML BOTTLE OD SCH (16:22)
[2024-08-19] MEDS: guaiFENesin 200 MG/10 ML 10 ML UNIT-DOSE CUPS PO PRN (18:00)
[2024-08-19] MEDS: VANCOMYCIN 1 GM PREMIX (F) 1 GM/200 ML BAG IVPB ONE (20:30)
[2024-08-20] MEDS: ACETAMINOPHEN 325 MG TABLET (FP) PO PRN (06:09)
[2024-08-20 09:11] LABS: HEMOGLOBIN 9.3 g/dL (13.7-17.5); PLATELET COUNT 279 x10^3/uL (163-337)
[2024-08-20 09:12] LABS: HEMATOCRIT 30.4 % (40.1-51.0); MCHC 30.6 g/dl (32.3-36.5); MEAN CELL VOLUME 94.7 fl (79.0-92.2); MEAN PLT VOLUME 9.6 fl (9.4-12.4)
[2024-08-20 09:34] LABS: POTASSIUM 3.7 mmol/L (3.5-5.1)
[2024-08-20 09:36] LABS: CALCIUM 8.9 mg/dL (8.5-10.1)
[2024-08-20 09:37] LABS: BLOOD UREA NITROGEN 22.6 mg/dL (7-18)
[2024-08-20 09:40] LABS: CREATININE 3.6 mg/dL (0.55-1.3)
[2024-08-21] MEDS ORDERED: SODIUM CHLORIDE 250 ML IV PRN (07:00)
[2024-08-21 08:33] LABS: ABSOLUTE IMMATURE GRANULOCYTES 0.03 x10^3/uL (0.0-0.031); BASOPHILS # 0.07 x10^3/uL (0.01-0.08); EOSINOPHIL % 8.8 % (0.8-7.0); EOSINOPHILS # 0.63 x10^3/uL (0.04-0.54); HEMATOCRIT 27.9 % (40.1-51.0); HEMOGLOBIN 8.6 g/dL (13.7-17.5); MCHC 30.8 g/dl (32.3-36.5); MEAN CELL VOLUME 93.6 fl (79.0-92.2); MEAN PLT VOLUME 9.8 fl (9.4-12.4); MONOCYTE # 0.73 x10^3/uL (0.30-0.82); MONOCYTE % 10.1 % (5.3-12.2); PLATELET COUNT 295 x10^3/uL (163-337)
[2024-08-21 09:01] LABS: POTASSIUM 4.2 mmol/L (3.5-5.1)
[2024-08-21 09:02] LABS: ALBUMIN 1.8 g/dl (3.4-5.0); BLOOD UREA NITROGEN 32.2 mg/dL (7-18)
[2024-08-21 09:06] LABS: CREATININE 4.8 mg/dL (0.55-1.3)
[2024-08-21 09:07] LABS: BILIRUBIN,TOTAL 0.5 mg/dL (0.2-1); TOT PROT 6.2 g/dl (6.4-8.2)
[2024-08-21] MEDS: EPOETIN ALFA-EPBX 10,000 UNIT/ML VIAL IVPUSH ONE (09:08)
[2024-08-21] MEDS ORDERED: ALBUTEROL SO4 HFA INHALER IH PRN (13:52)
[2024-08-21] MEDS ORDERED: PROMETHAZINE HCL ORAL SYRUP 6.25 MG/5 ML (BULK BOTTLE) PO PRN (13:53)
[2024-08-22] MEDS: REMDESIVIR 200 MG in SODIUM CHLORIDE 250 ML IVPB ONE (15:44)
[2024-08-23] MEDS: diphenhydrAMINE HCL 25 MG CAPSULE (FP) PO PRN (12:21)
[2024-08-23] MEDS: MIDODRINE HCL 5 MG TABLET PO SCH (13:18)
[2024-08-23] MEDS: REMDESIVIR 100 MG in SODIUM CHLORIDE 250 ML IVPB SCH (15:10)
[2024-08-23] MEDS: VANCOMYCIN HCL 125 MG CAPSULE (RESTRICTED TO ID ONLY) PO SCH (18:36)
[2024-08-23] MEDS: BANATROL PLUS POWDER PACKET PO SCH (21:55)
[2024-08-24 08:37] LABS: HEMATOCRIT 31.9 % (40.1-51.0)
[2024-08-24 08:39] LABS: ABSOLUTE IMMATURE GRANULOCYTES 0.05 x10^3/uL (0.0-0.031); BASOPHILS # 0.08 x10^3/uL (0.01-0.08); EOSINOPHIL % 12.1 % (0.8-7.0); EOSINOPHILS # 1.06 x10^3/uL (0.04-0.54); HEMOGLOBIN 9.8 g/dL (13.7-17.5); MCHC 30.7 g/dl (32.3-36.5); MEAN CELL VOLUME 93.3 fl (79.0-92.2); MEAN PLT VOLUME 9.5 fl (9.4-12.4); MONOCYTE # 0.52 x10^3/uL (0.30-0.82); MONOCYTE % 5.9 % (5.3-12.2); PLATELET COUNT 397 x10^3/uL (163-337); RDW 16.1 % (12.2-16.6)
[2024-08-24 09:06] LABS: POTASSIUM 4.6 mmol/L (3.5-5.1)
[2024-08-24 09:08] LABS: ALBUMIN 1.9 g/dl (3.4-5.0); BLOOD UREA NITROGEN 44.6 mg/dL (7-18); CALCIUM 9.2 mg/dL (8.5-10.1)
[2024-08-24 09:11] LABS: CREATININE 5.6 mg/dL (0.55-1.3)
[2024-08-24 09:13] LABS: BILIRUBIN,TOTAL 0.4 mg/dL (0.2-1); TOT PROT 6.7 g/dl (6.4-8.2)
[2024-08-24] MEDS ORDERED: SODIUM CHLORIDE 250 ML IV PRN (12:40)
[2024-08-24] MEDS: CEFAZOLIN 2 GM/D5W 2 GM/50 ML ML IVPB SCH (22:34)
[2024-08-25 08:12] VITALS: RESP 18
[2024-08-25] MEDS: LOPERAMIDE HCL 2 MG CAPSULE PO ONE (20:05)
[2024-08-25] MEDS: ACETAMINOPHEN 325 MG TABLET (FP) PO ONE (22:58)
[2024-08-26 08:18] LABS: ABSOLUTE IMMATURE GRANULOCYTES 0.03 x10^3/uL (0.0-0.031); RDW 16.1 % (12.2-16.6)
[2024-08-26 08:19] LABS: EOSINOPHIL % 13.9 % (0.8-7.0); EOSINOPHILS # 0.99 x10^3/uL (0.04-0.54); HEMATOCRIT 30.4 % (40.1-51.0); HEMOGLOBIN 9.4 g/dL (13.7-17.5); MCHC 30.9 g/dl (32.3-36.5); MEAN CELL VOLUME 93.3 fl (79.0-92.2); MEAN PLT VOLUME 9.2 fl (9.4-12.4); MONOCYTE # 0.44 x10^3/uL (0.30-0.82); MONOCYTE % 6.2 % (5.3-12.2); PLATELET COUNT 388 x10^3/uL (163-337)
[2024-08-26 08:41] LABS: POTASSIUM 4.3 mmol/L (3.5-5.1)
[2024-08-26 08:45] LABS: BLOOD UREA NITROGEN 33.7 mg/dL (7-18); CALCIUM 8.7 mg/dL (8.5-10.1)
[2024-08-26 08:49] LABS: CREATININE 4.7 mg/dL (0.55-1.3)
[2024-08-26 17:00] VITALS: BP 139/76; PULSE 92; TEMP 98.2
[2024-08-27] MEDS ORDERED: CEFAZOLIN 2 GM/D5W 2 GM/50 ML ML IVPB SCH (10:00)
== END 2024-08-26 18:47 | DRG 853 ==
LOC: JER 09:00 → JERBED 12:15 → J4W 18:54 → J5S 08-18 16:43
PROVIDERS: ADMIT Student in an Organized Health Care Education/Training Program; ATTEND Internal Medicine
PROC: 0Y6M0ZB Detachment at Right Foot, Partial 2nd Ray, Open Approach (ICD-10-PCS; principal; 2024-08-17 12:00)
PROC: XW033E5 Introduction of Remdesivir Anti-infective into Peripheral Vein, Percutaneous Approach, New Technology Group 5 (ICD-10-PCS; 2024-08-21)
PROC: 5A1D70Z Performance of Urinary Filtration, Intermittent, Less than 6 Hours Per Day (ICD-10-PCS; 2024-08-24)
DX: A41.9 Sepsis, unspecified organism (principal); E43 Unspecified severe protein-calorie malnutrition; I21.A1 Myocardial infarction type 2; N18.6 End stage renal disease; U07.1 COVID-19; I12.0 Hypertensive chronic kidney disease with stage 5 chronic kidney disease or end stage renal disease; E87.20 Acidosis, unspecified; L03.115 Cellulitis of right lower limb; M86.8X7 Other osteomyelitis, ankle and foot; E11.51 Type 2 diabetes mellitus with diabetic peripheral angiopathy without gangrene; E11.42 Type 2 diabetes mellitus with diabetic polyneuropathy; Z99.2 Dependence on renal dialysis; E11.22 Type 2 diabetes mellitus with diabetic chronic kidney disease; D64.9 Anemia, unspecified; E78.5 Hyperlipidemia, unspecified; H40.9 Unspecified glaucoma; K22.70 Barrett's esophagus without dysplasia; K57.90 Diverticulosis of intestine, part unspecified, without perforation or abscess without bleeding; Z68.20 Body mass index [BMI] 20.0-20.9, adult; H54.8 Legal blindness, as defined in USA; M48.00 Spinal stenosis, site unspecified; R19.7 Diarrhea, unspecified
CPT/HCPCS: 0241U-QW; 36415; 70450-TC; 71045-TC-FY; 72125-TC; 72170-TC-FY; 73610-TC-RT-FY; 73630-TC-RT-FY; 73721-RT-TC; 80048; 80053; 82272; 82607; 82728; 82746; 82803; 82962; 83540; 83550; 83605; 83735; 84100; 84484; 85025; 85027; 85610; 85651; 85730; 86140; 86704; 86803; 86850; 86900; 86901; 87040; 87070; 87205; 87324; 87340; 87449; 87517; 87899; 88305-TC; 88311-TC; 93005; 93010; 93306-TC; 93922; 93926-TC; 94760; 97116-GP; 97162-GP; 99285-25; C1713; G0480; J0248; J1100; P9047; Q5106